=== PATIENT | female | born 1965 | race Caucasian/White ===

== ENCOUNTER 2019-04-03 10:41 | Emergency (ER) | payer MEDICARE ==
--- NOTE | 2019-04-03 10:56 | ED ---
Upper Extremity Pain - HPI Summary HPI Summary: This patient is a 53 year old F presenting to [facility] accompanied by daughter with a chief complaint of left shoulder pain since 1529. Patient states that she injured her left shoulder on 01/30/19 she states that she woke up and instantly felt pain in left shoulder. The patient rates the pain 10/10 in severity. Symptoms aggravated by movement. Symptoms alleviated by oxycodone ( originally prescribed for back pain). Patient reports left shoulder pain and neck pain. Patient states that she has been waiting for a call to go and get a MRI. Allergies Allergy/AdvReac Type Severity Reaction Status Date / Time Penicillins Allergy Intermediate Swelling Verified 01/30/18 10:51 - History of Current Complaint Chief Complaint: EDExtremityUpper Stated Complaint: SHUOLDER INJURY Time Seen by Provider: 04/03/19 10:48 Hx Obtained From: Patient, Family/Workforce Specialist - daughter Mechanism Of Injury: Unknown Onset/Duration: Started Weeks Ago, Still Present, Worse Since - 1509 Timing: Constant Severity Currently: Moderate Pain Location: Shoulder - right Character: Sharp Aggravating Factor(s): Movement Alleviating Factor(s): Nothing Associated Signs & Symptoms: Positive: Swelling - Allergies/Home Medications Allergies/Adverse Reactions: Allergies Allergy/AdvReac Type Severity Reaction Status Date / Time Penicillins Allergy Intermediate Swelling Verified 01/30/18 10:51 PMH/Surg Hx/FS Hx/Imm Hx Endocrine/Hematology History: Reports: Hx Diabetes Cardiovascular History: Reports: Hx Aneurysm - Abdominal, Hx Angina, Hx Deep Vein Thrombosis, Hx Hypercholesterolemia, Hx Hypertension, Other Cardiovascular Problems/Disorders - DIABETIC / Denies: Hx Myocardial Infarction, Hx Pacemaker/ICD Respiratory History: Denies: Hx Chronic Obstructive Pulmonary Disease (COPD) GI History: Reports: Hx Gastroesophageal Reflux Disease, Hx Hiatal Hernia, Other GI Disorders - GERD History: Reports: Other Problems/Disorders - Bladder Sling Denies: Hx Renal Disease Musculoskeletal History: Reports: Hx Fibromyalgia, Other Musculoskeletal History - mild spinal stenosis with bulging disks, degenerative disk disease Sensory History: Reports: Hx Contacts or Glasses, Hx Deafness - Rt ear, Hx Hearing Aid Opthamlomology History: Reports: Hx Contacts or Glasses Neurological History: Reports: Hx Migraine - Current Admission, Other Neuro Impairments/Disorders - Nerve damage right neck Psychiatric History: Denies: Hx Panic Disorder - Surgical History Surgical History: Yes Surgery Procedure, Year, and Place: cholecysectomy. hysterectomy. bladder sling. tonsilectomy and tubes in ears. 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 (-) Distressed Skin: Warm, Dry HENT: Normocephalic; Atraumatic Eyes: Conjunctiva normal Neck: Musculoskeletal ROM normal neck. (-) JVD, (-) Stridor, (-) Tracheal deviation Cardio: Rhythm regular, rate normal, Heart sounds normal; Intact distal pulses; The pedal pulses are 2+ and symmetric. Radial pulses are 2+ and symmetric. (-) Murmur Pulmonary/Chest wall: Effort normal. (-) Respiratory distress, (-) Wheezes, (-) Rales Abd: Soft, (-) tenderness, (-) Distension, (-) Guarding, (-) Rebound Musculoskeletal: left bicep non tender, (-) Edema, referred pain to left bicep causing minimal limitless for ROM, no erythema or induration. Lymph: (-) Cervical adenopathy Neuro: Alert, Oriented x3 Psych: Mood and affect Normal Triage Information Reviewed: Yes Vital Signs On Initial Exam: Initial Vitals Temp Pulse Resp BP Pulse Ox 97.6 F 76 18 162/73 98 04/03/19 10:42 04/03/19 10:42 04/03/19 10:42 04/03/19 10:42 04/03/19 10:42 Vital Signs Reviewed: Yes Diagnostics - Vital Signs Vital Signs Temp Pulse Resp BP Pulse Ox 04/03/19 10:42 97.6 F 76 18 162/73 98 - Laboratory Result Diagrams: 04/03/19 11:05 04/03/19 11:05 Lab Statement: Any lab studies that have been ordered have been reviewed, and results considered in the medical decision making process. - Ultrasound Venous Doppler Study Ultrasound Interpretation Completed By: Radiologist Summary of Ultrasound Findings: Venous Doppler Study reveals, per radiologist, IMPRESSION: No evidence for LEFT upper extremity deep venous thrombosis. ED Physician has reviewed this report. Course/Dx - Course Course Of Treatment: This patient is a 53 year old F presenting to [facility] accompanied by daughter with a chief complaint of left shoulder pain since 0. Venous Doppler Study reveals, per radiologist, IMPRESSION: No evidence for LEFT upper extremity deep venous thrombosis. ED Physician has reviewed this report. Test results with no significant abnormalities except for Plt Count 125 , INR 1.12, Glucose 151, AST 46. In the ED course the patient was given Hydrocodone [address] Dias states that he does not suspect a fracture and there are no signs of neurovascular compromises of the left upper extremity. Patient will be discharged and follow up with her PCP and our referral for an Orthopedic doctor. The patient is agreeable with this plan. - Diagnoses Provider Diagnoses: Left shoulder pain, Subtherapeutic international normalized ratio (INR) Discharge ED - Sign-Out/Discharge Documenting (check all that apply): Patient Departure - discharge Patient Received Moderate/Deep Sedation with Procedure: No - Discharge Plan Condition: Stable Disposition: HOME Prescriptions: Lidocaine PATCH 5%* [Lidoderm 5% Patch*] 1 patch TRANSDERM DAILY #14 patch Patient Education Materials: Shoulder Pain (ED) Referrals: Joby Sanchez MD [Primary Care Provider] - 2 Days Adrianna Mayes [Physician [employer]illing Machine Hand] - Additional Instructions: PLEASE CONTACT PRIMARY CARE PROVIDER FOR POTENTIAL ADJUSTMENT OF COUMADIN. PLEASE ALSO SCHEDULE AN APPOINTMENT WITH AN ORTHOPEDIC DOCTOR (REFERRAL ATTACHED ) WITH IN TWO TO THREE DAYS. PLEASE RETURN TO THE EMERGENCY DEPARTMENT FOR CHANGING OR WORSENING SYMPTOMS. - Attestation Statements Document Initiated by Scribe: Yes Documenting Scribe: Sunshine Stone Provider For Whom Nathanaelibe is Documenting (Include Credential): Dr. Be Dias MD Scribe Attestation: Sunshine Bentley scribed for Dr. Be Dias MD on 04/03/19 at 1232. Status of Scribe Document: Ready
[2019-04-03] MEDS ORDERED: HYDROcodone/ACETAMIN 5-325 MG* 1 TAB PO ONE (10:57)
[2019-04-03 11:12] LABS: Hematocrit 41 % (35-47); Hemoglobin 13.7 g/dL (12.0-16.0); Mean Corpuscular HGB Conc 34 g/dL (31-36); Mean Corpuscular Hemoglobin 31 pg (27-31); Mean Corpuscular Volume 93 fL (80-97); Mean Platelet Volume 9.5 fL (7.4-10.4); Platelet Count 125 10^3/uL (150-450); Red Blood Count 4.38 10^6 /uL (3.70-4.87); Red Cell Distribution Width 14 % (10-15); White Blood Count 6.2 10^3/uL (3.5-10.8)
[2019-04-03 11:28] LABS: Activated Partial Thrombo Time 32.4 seconds (26.0-38.0); INR 1.12 (0.82-1.09)
[2019-04-03 11:37] LABS: Albumin/Globulin Ratio 1.3 (1-3); BUN/Creatinine Ratio 16.7 (8-20); C Reactive Protein 4.42 mg/L (<8.01); Calcium 9.3 mg/dL (8.6-10.3); EGFR African American 112.5 (>60); Potassium 4.2 mmol/L (3.5-5.0); Total Bilirubin 0.7 mg/dL (0.2-1.0)
[2019-04-03 12:52] VITALS: BP 127/75
== END 2019-04-03 12:35 | disposition home or self-care (01) ==
LOC: ED 10:41
DX: M25.512 Pain in left shoulder (principal); R79.1 Abnormal coagulation profile; E11.9 Type 2 diabetes mellitus without complications; E78.00 Pure hypercholesterolemia, unspecified; I10 Essential (primary) hypertension; K21.9 Gastro-esophageal reflux disease without esophagitis; F17.210 Nicotine dependence, cigarettes, uncomplicated; Z86.718 Personal history of other venous thrombosis and embolism; Z90.710 Acquired absence of both cervix and uterus; Z90.49 Acquired absence of other specified parts of digestive tract; Z88.0 Allergy status to penicillin; Z79.84 Long term (current) use of oral hypoglycemic drugs; Z79.01 Long term (current) use of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s; Z79.899 Other long term (current) drug therapy
CPT/HCPCS: 36415; 80053; 85027; 85610; 85730; 86140; 99283

== ENCOUNTER 2019-07-30 08:11 | Emergency (ER) | payer MEDICARE ==
--- OUTSIDE RECORDS SUMMARY | 2019-07-30 08:22 | XMS REPORT ---
:1965 Author Organization [facility] Address [address] [place] [address] Care Team Providers Name Role Phone Austin Radford Unavailable Unavailable PROBLEMS Type Condition ICD9-CM [id number] Onset Condition SNOMED Code Code Code Dates Status Problem Cubital tunnel syndrome, G56.22 Active 20240259 left Problem Bilateral carpal tunnel G56.03 Active 61440598 syndrome Problem Type 2 diabetes mellitus E11.9 Active 190118508 without complications Problem Diaphragmatic hernia K44.9 Active 96519926 without obstruction or gangrene Problem GERD (gastroesophageal K21.9 Active 983768622 reflux disease) Problem Pulmonary nodule R91.1 Active 914316952 Problem Essential hypertension I10 Active 35052941 Problem Peripheral vascular I73.9 Active 073384201 disease Problem Pure E78.0 Active 662235890 hypercholesterolemia Problem Fatty liver K76.0 Active 451009846 Problem Elevated transaminase R74.0 Active 683195526 level Problem Stage 1 chronic kidney N18.1 Active 345234403 disease Problem Anxiety F41.9 Active 89761722 Problem Primary insomnia F51.01 Active 9864456 Problem Tension headache G44.209 Active 598473293 Problem Status post Z95.828 Active 868027795 aortobifemoral bypass surgery Problem Other obesity due to E66.09 Active 480307679 excess calories Problem Body mass index (BMI) of Z68.37 Active 444636139 37.0-37.9 in adult Problem Bilateral low back pain M54.40 Active 21636150 with sciatica, sciatica laterality unspecified Problem assisted current use of Z79.4 Active 960805554 insulin ALLERGIES No Information ENCOUNTERS Encounter Location Date Diagnosis [address] Aug, [place] [address] Jul, [place] [address] Jul, [place] [address] Jul, Local infection of the [place] [address] subcutaneous tissue, unspecified L08.9 and Bitten by dog, initial encounter W54.0XXA [address] Jul, Type 2 diabetes [place] [address] without complications E11.[address] Jul, Plantar tendonitis M77.9 [place] [address] Type 2 diabetes mellitus without complications E11.[address] Jul, [place] [address] Jul, [place] [address] Jun, [place] [address] Jun, Encounter for screening [place] [address] and ear disorders Z13.[address] Jun, [place] [address] Jun, Type 2 [place] [address] without complications E11.9 ; Encounter for immunization Z23 and assisted current use of insulin Z79.[address] Jun, Type 2 diabetes mellitus [place] without complications E11.9 [address] May, [place] [address] [facility] [address] [place] [address] May, [place] [address] Mar, [place] [address] [facility] Mar, [place] [address] [facility] [address] [facility] [place] 18 Mar, 2019 [place] [address] Mar, [place] [address] [place] [address] [address] [place] Mar, Type 2 diabetes [place] [address] without complications E11.[address] Mar, Fatty liver K76.0 ; [place] [address] anterior shoulder pain M25.512 and Type 2 diabetes mellitus without complications E11.9 [facility] [address] [facility] Feb, Pain in left shoulder M25.512 [place] [address] [facility] Feb, [place] [address] Feb, Type 2 diabetes [place] [address] without complication, without long-term current use of insulin E11.[address] Feb, Acute pain of left [place] [address] M25.512 and Type 2 diabetes mellitus without complication, without long-term current use of insulin E11.[address] Feb, Elevated liver enzymes R74.8 [place] [address] [facility] [address] [facility] Jan, [place] [address] [facility] [address] [facility] Jan, [place] [address] Jan, [place] [address] Jan, [place] [address] [facility] [address] [facility] Jan, [place] [address] [place] [address] [address] [place] Dec, Type 2 diabetes [place] [address] without complication, without long-term current use of insulin E11.9 ; Screening for breast cancer Z12.31 and Primary insomnia F51.01 [place] [address] [address] [place] Dec, [place] [address] [place] [address] Dec, [place] [address] [place] [address] [address] [place] Dec, [place] [address] [place] [address] [address] [place] November, [place] [address] [place] [address] [address] [place] November, [place] [address] November, [place] [address] Migel Nguyen [address] November, [place] [address] November, Type 2 [place] [address] without complication, without long-term current use of insulin E11.[address] Oct, Type 2 [place] [address] without complication, without long-term current use of insulin E11.[address] Oct, Type 2 [place] [address] without complication, without long-term current use of insulin E11.9 ; Transaminitis R74.0 ; assisted current use of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 Z79.01 and Chest pain at rest R07.[address] Sep, Type 2 diabetes mellitus [place] without complications E11.9 [address] Aug, [place] [address] Aug, [place] [address] [place] [address] Aug, Type 2 diabetes mellitus [place] without complications E11.9 [address] Jul, Type 2 diabetes mellitus [place] without complications E11.9 [address] Jul, Bladder pain R39.89 ; Type 2 [place] [address] diabetes mellitus without complications E11.9 and 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.[address] Jul, Uncontrolled type 2 [place] [address] mellitus without complication, without long-term current use of insulin E11.[address] Jul, Type 2 [place] [address] without complication, without long-term current use of insulin E11.[address] Jul, [place] [address] Jul, [place] [address] Jul, Status post aortobifemoral [place] [address] bypass surgery Z95.828 [facility] [address] Jul, [place] [address] [place] [address] [address] [place] Jun, [place] [address] [facility] [address] [facility] Jun, [place] [address] [facility] [address] [place] [address] Jun, [place] [address] [place] [address] Jun, [place] [address] [place] [address] [address] [place] Jun, [place] [address] [facility] [address] [facility] Jun, [place] [address] [place] [address] Jun, [place] [address] [place] [address] [address] [place] May, [place] [address] [place] [address] [address] [place] May, assisted current [place] [address]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 Z79.[address] [place] [address] May, Bronchitis J40 ; Sub[place] [address] maxillary sinusitis J01.00 ; Clotting disorder D68.9 and Type 2 diabetes mellitus without complication, without long-term current use of insulin E11.[address] May, [place] [address] Apr, [place] [address] [place] [address] [address] [place] Apr, [place] [address] [place] [address] [address] [place] Apr, Clotting disorder D68.9 [place] [address] [place] [address] Apr, [place] [address] [place] [address] Apr, [place] [address] [place] [address] Apr, Type 2 diabetes [place] [address] without complication, without long-term current use of insulin E11.9 [place] [address] [address] [place] Apr, [place] [address] [place] [address] [address] [place] Apr, [place] [address] 16 Apr, 2018 [place] [address] 15 Apr, 2018 Type 2 [place] [address] without complication, without long-term current use of insulin E11.[address] 14 Apr, 2018 [place] [address] Apr, [place] [address] Apr, [place] [address] Apr, [place] [address] Apr, [place] [address] Apr, Bilateral [place] [address] sciatica, sciatica laterality unspecified M54.40 ; Type 2 diabetes mellitus without complication, without long-term current use of insulin E11.9 ; Essential hypertension I10 ; Vision changes H53.9 ; Rash R21 ; Other obesity due to excess calories E66.09 ; Body mass index (BMI) of 37.0-37.9 in adult Z68.37 and Encounter for immunization Z23 [facility] [address] [facility] [place] Apr, [place] [address] Mar, [place] [address] Mar, [place] [address] Mar, [place] [address] Mar, assisted current use of [facility] [place]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 Z79.01 [address] Mar, [place] [address] Mar, Peripheral [place] [address] I73.9 ; Left foot pain M79.672 ; Bilateral low back pain with sciatica, sciatica laterality unspecified M54.40 ; Other obesity due to excess calories E66.09 ; Body mass index (BMI) of 37.0-37.9 in adult Z68.37 ; 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 and Elevated liver enzymes R74.8 [place] [address] Mar, [place] [address] Mar, [place] [address] Mar, Peripheral vascular disease [place] I73.9 ; Left foot pain M79.672 [address] ; Swelling of left foot M79.89 and Type 2 diabetes mellitus without complication, without long-term current use of insulin E11.[address] Mar, [place] [address] Feb, [place] [address] Feb, [place] [address] Feb, Type 2 [place] [address] without complication, without long-term current use of insulin E11.[address] Feb, [place] [address] Feb, [place] [address] Feb, [place] [address] Feb, Pain in right knee M25.561 [place] [address] Feb, [place] [address] Feb, [place] [address] Feb, [place] [address] Jan, [place] [address] Jan, [place] [address] [place] [address] [address] [place] Jan, Type 2 [place] [address] without complication, without long-term current use of insulin E11.9 ; Acute pain of right knee M25.561 ; Bilateral low back pain with sciatica, sciatica laterality unspecified M54.40 ; Generalized abdominal tenderness R10.817 ; Other obesity due to excess calories E66.09 and Body mass index (BMI) of 37.0-37.9 in adult Z68.[address] Jan, [place] [address] [facility] [address] [place] [address] Jan, [place] [address] Jan, Rib pain on left side R07.81 [place] [address] [place] [address] [address] [place] Jan, [place] [address] Dec, [place] [address] Dec, [place] [address] [facility] [address] [facility] Dec, [place] [address] Dec, [place] [address] [facility] [address] [place] [address] Dec[place] [address] [facility] [address] [facility] Dec, [place] [address] Dec, [place] [address] [place] [address] November, [place] [address] [place] [address] [address] [place] November, [place] [address] November, Type 2 diabetes mellitus [place] [address] without complication, without long-term current use of insulin E11.9 ; Left hip pain M25.552 and Anxiety F41.[address] November, [place] [address] November, [place] [address] [place] [address] [address] [place] November, [place] [address] November, [place] [address] [address] November, [place] [address] November, [place] [address] November, Type 2 diabetes [place] [address] without complication, without long-term current use of insulin E11.9 [place] [address] November, [place] [address] [place] [address] November, [place] [address] Migel Nguyen [address] November, [place] [address] [place] [address] November, [place] [address] [place] [address] November, [place] [address] [place] [address] Oct, [place] [address] [place] [address] Oct, Vaginal yeast infection B37.3 ; [place] [address] Stomach pain R10.9 ; Other obesity due to excess calories E66.09 and Body mass index (BMI) of 37.0-37.9 in adult Z68.37 [place] [address] Oct, [place] [address] [place] [address] Oct, [place] [address] [place] [address] Oct, [place] [address] [place] [address] Oct, [place] [address] [place] [address] Sep, [place] [address] [place] [address] Sep, [place] [address] [place] [address] Sep, Right upper quadrant [place] [address] R10.11 [place] [address] Sep, [place] [address] [place] [address] Sep, [place] [address] [place] [address] Sep, [place] [address] [place] [address] Sep, Tenderness at McBurney[place] [address] R19.8 and Right upper quadrant pain R10.11 [place] [address] Sep, [place] [address] [place] [address] Sep, [place] [address] [place] [address] Sep, Type 2 diabetes [place] [address] without complication, without long-term current use of insulin E11.9 ; Clotting disorder D68.9 ; 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 ; Essential hypertension I10 ; Anxiety F41.9 ; Generalized abdominal pain R10.84 ; Paresthesia of skin R20.2 ; Anesthesia of skin R20.0 ; Obesity (BMI 30-39.9) E66.9 and BMI 36.0-36.9,adult Z68.36 [place] [address] [address] [place] Sep, [place] [address] [place] [address] Sep, [place] [address] [place] [address] [address] [place] [address] Sep, [place] [address] [place] [address] [place] Sep, [place] [address] [place] [address] [place] Aug, [place] [address] [place] [address] [address] [place] Aug, Type 2 diabetes [place] [address] without complication, without long-term current use of insulin E11.9 [place] [address] [address] [place] Aug, [place] [address] [place] [address] [address] [place] Aug, Anesthesia of skin R20.0 ; [place] [address] Elevated transaminase level R74.0 ; Lump in throat R22.1 and Type 2 diabetes mellitus without complication, without long-term current use of insulin E11.9 [place] [address] [address] [place] Aug, [place] [address] [place] [address] [address] [place] Aug, [place] [address] [place] [address] [address] [place] Aug, Raynaud''s phenomenon [place] [address] gangrene I73.[address] Aug, [place] [address] Aug, Raynaud''s phenomenon [place] [address] gangrene I73.00 [place] [address] [address] [place] Aug, [place] [address] [place] [address] [address] [place] Jul, [place] [address] [facility] [address] Jul, [place] [address] [place] [address] Jul, Raynaud''s phenomenon [place] [address] gangrene I73.00 and Lymphadenopathy R59.1 [facility] [address] [place] Jul, Health [place] [address] [facility] [address] [facility] Jul, [place] [address] [facility] [address] [place] Jul, Raynaud''s phenomenon [place] [address] gangrene I73.00 [place] [address] [address] [place] Jul, [place] [address] [place] [address] [address] [place] Jul, Uncontrolled type 2 [place] [address] mellitus without complication, without long-term current use of insulin E11.[address] Jul, [place] [address] Jun, [place] [address] Jun, [place] [address] Jun, [place] [address] [place] [address] [address] [place] Jun, [place] [address] [place] [address] [address] [place] Jun, [place] [address] Jun, Epigastric pain R10.13 ; Type 2 [place] [address] diabetes mellitus without complication, without long-term current use of insulin E11.9 ; Clotting disorder D68.9 ; Obesity (BMI 30-39.9) E66.9 ; BMI 35.0-35.9,adult Z68.35 and Colon cancer screening Z12.[address] Jun, [place] [address] Jun, [place] [address] Jun, [place] [address] Jun, [place] [address] May, Pure hypercholesterolemia E78.0 [place] [address] May, Rib pain on left side R07.81 ; [place] [address] Pneumonia of both lungs due to infectious organism, unspecified part of lung J18.9 ; Clotting disorder D68.9 ; 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 ; Obesity (BMI 30-39.9) E66.9 and BMI 35.0-35.9,adult Z68.[address] May, Uncontrolled type 2 [place] [address] mellitus without complication, without long-term current use of insulin E11.[address] May, [place] [address] May, Pneumonia of both lungs [place] [address] infectious organism, unspecified part of lung J18.[address] May, Pneumonia of both lungs [place] [address] infectious organism, unspecified part of lung J18.[address] May, Uncontrolled type 2 [place] [address] mellitus without complication, without long-term current use of insulin E11.[address] May, [place] [address] May, [place] [address] May, Fatty liver K76.0 ; [place] [address] LFTs R79.89 ; Clotting disorder D68.9 ; Cigarette nicotine dependence without complication F17.210 ; Obesity (BMI 30-39.9) E66.9 and BMI 35.0-35.9,adult Z68.[address] May, Uncontrolled [place] [address] mellitus without complication, without long-term current use of insulin E11.[address] May, [place] [address] Apr, [place] [address] Apr, Left upper quadrant pain R10.12 [place] [address] ; Transaminase or LDH elevation R74.0 ; Wheezing R06.2 and Cigarette nicotine dependence with nicotine-induced disorder F17.[address] Apr, Type 2 diabetes [place] [address] without complication, without long-term current use of insulin E11.[address] Apr, [place] [address] Apr, Uncontrolled type 2 [place] [address] mellitus without complication, without long-term current use of insulin E11.[address] Apr, [place] [address] Apr, Right lower quadrant [place] [address] R10.[address] Apr, Right lower quadrant [place] [address] R10.31 ; Urinary frequency R35.0 and Essential hypertension I10 [address] Apr, [place] [address] Apr, [place] [address] Apr, [place] [address] Apr, [place] [address] Mar, [place] [address] Mar, [place] [address] Mar, [place] [address] Mar, [place] [address] Mar, Uncontrolled type 2 [place] [address] mellitus without complication, without long-term current use of insulin E11.65 and Screening for breast cancer Z12.[address] 18 Mar, 2017 [place] [address] 14 Mar, 2017 [place] [address] Mar, Health [place] [address] [place] [address] Mar, [place] [address] [place] [facility] [address] [place] 09 Mar, 2017 Health [facility] [place] [address] [facility] [address] [place] Mar, Impaired fasting glucose R73.01 [place] [address] and Uncontrolled type 2 diabetes mellitus without complication, without long-term current use of insulin E11.65 [place] [address] Mar, [place] [address] [place] [address] Mar, Health [place] [place] [address] [place] [address] [place] Mar, [place] [address] [place] [address] Mar, [place] [address] [place] [address] [place] Feb, [place] [address] [place] [address] [place] Feb, [place] [address] [place] [address] [place] Feb, [place] [address] [place] [address] [place] Feb, Bruising T14.8 and [place] [address] hypercholesterolemia E78.0 [facility] [address] [facility] Feb, [place] [address] [place] [address] [place] Feb, [place] [address] [place] [address] [place] Feb, Health [place] [address] [place] [address] [address] [facility] Feb, Cigarette nicotine dependence Health [place] [address] with nicotine-induced disorder F17.219 [facility] [address] [place] [address] Feb, [place] [address] [place] [address] Feb, [place] [address] [place] [address] [place] Feb, Cigarette nicotine dependence Health [place] [address] with nicotine-induced disorder F17.219 [place] [address] [place] Jan, Health [place] [address] [place] [address] Jan, [place] [address] [place] [address] Jan, Tension headache G44.209 ; [place] [address] Bilateral low back pain with sciatica, sciatica laterality unspecified M54.40 ; Cigarette nicotine dependence with nicotine-induced disorder F17.219 ; Sprain of ribs, initial encounter S23.41XA ; Pure hypercholesterolemia E78.0 and Essential hypertension I10 [place] [address] [facility] 14 Jan, 2017 [place] [address] [place] [address] Jan, [place] [address] [place] [address] Jan, [place] [address] [place] [address] Jan, [place] [address] [facility] [address] Dec, [place] [address] [place] [address] Dec, [place] [address] [place] [address] Dec, [place] [address] [place] [address] Dec, [place] [address] [place] [address] Dec, [place] [address] [place] [address] Dec, Tension headache G44.209 ; [place] [address] Clotting disorder D68.9 ; 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 ; Cigarette nicotine dependence with nicotine-induced disorder F17.219 and Obesity (BMI 30-39.9) E66.[address] [place] [address] Dec, [place] [address] [place] [address] Dec, [place] [address] [place] [address] Dec, Bilateral low back [place] [address] sciatica, sciatica laterality unspecified M54.40 and Clotting disorder D68.[address] [place] [address] Dec, [place] [address] [place] [address] Dec, Clotting disorder D68.9 ; [place] [address] term current use of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 Z79.01 and Cigarette nicotine dependence with nicotine-induced disorder F17.219 [place] [address] Dec, [place] [address] [place] [address] Dec, [place] [address] [facility] [address] [place] Dec, [place] [address] [place] [facility] [address] November, [place] [address] [place] [address] November, [place] [address] [place] [address] November, [place] [address] [place] [address] November[place] [address] [place] [address] November, [place] [address] [place] [address] November, [place] [address] [place] [address] November, [place] [address] [place] [address] November[place] [address] [place] [address] November[place] [address] [place] [address] November, [place] [address] [place] [address] November[place] [address] [place] [address] November, [place] [address] [place] [address] Oct[place] [address] [place] [address] Oct, [place] [address] [place] [address] Oct, [place] [address] [place] [address] Oct, [place] [address] [place] [address] Oct, [place] [address] [place] [address] Oct, Other chest pain R07.89 ; Pain, [place] [address] arm, left M79.602 ; Posterior left knee pain M25.562 ; Essential hypertension I10 and Hypercholesteremia E78.00 [place] [address] Oct, [place] [address] [place] [address] Oct, Weakness of left arm R29.898 ; [place] [address] History of coagulopathy Z86.2 and Pain, arm, left M79.602 [place] [address] Oct, [place] [address] [place] [address] Oct, [place] [address] [place] [address] Sep, [place] [address] [place] [address] Sep, [place] [address] [place] [address] Sep[place] [address] [place] [address] Sep[place] [address] [place] [address] Sep, [place] [address] [place] [address] Sep[place] [address] [place] [address] Sep, [place] [address] [place] [address] Sep, [place] [address] [place] [address] Aug, [place] [address] [place] [address] Aug[place] [address] [place] [address] Aug, assisted current use [place] [address]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 Z79.01 ; Cigarette nicotine dependence with nicotine-induced disorder F17.219 and Anxiety F41.9 [facility] [address] [facility] Aug, [place] [address] [place] [address] Aug, [place] [address] [place] [address] Aug[place] [address] [place] [address] Aug, [place] [address] [place] [address] Aug, [place] [address] [place] [address] Aug[place] [address] [place] [address] Aug, [place] [address] [place] [address] Jul, 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 [place] [address]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 Z79.01 [place] [address] Jul, Tobacco abuse Z72.0 [place] [address] [place] [address] Jul, [place] [address] [place] [address] Jul, [place] [address] [place] [address] Jul, Abnormal [place] [address] R91.8 [facility] [address] Jul, Pulmonary nodules R91.8 [place] [address] [place] [address] Jul, [place] [address] [place] [address] [place] Jul, Tension headache G44.209 ; [place] [address] Bilateral low back pain with sciatica, sciatica laterality unspecified M54.40 ; Cigarette nicotine dependence with nicotine-induced disorder F17.219 ; Wheezing R06.2 and 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 [place] [address] [place] Jul, [place] [address] [facility] [address] [facility] Jul, [place] [address] [facility] [address] [facility] Jun, [place] [address] [place] [address] Jun, [place] [address] [place] [address] Jun, Chronic headache R51 [place] [address] [place] [address] Jun, [place] [address] [place] [address] Jun, [place] [address] [place] [address] Jun, [place] [address] [place] [address] [place] Jun, [place] [address] [place] [address] [place] Jun, [place] [address] [place] [address] [place] Jun, Tension headache G44.209 [place] [address] [place] [address] May, [place] [address] [place] [address] [place] May, Clotting disorder D68.9 [place] [address] [place] [address] May, Tension headache G44.209 [place] [address] [place] [address] May, [place] [address] [place] [address] May, Encounter for immunization Z23 [place] [address] ; Tension headache G44.209 ; Clotting disorder D68.9 ; Essential hypertension I10 ; Cigarette nicotine dependence with nicotine-induced disorder F17.219 ; Pure hypercholesterolemia E78.0 and Hemorrhage from respiratory passages, unspecified R04.9 [place] [address] May, [place] [address] [place] [address] May, Tension headache G44.209 [place] [address] [place] [address] May, [place] [address] [place] [address] May, [place] [address] [place] [address] May, [place] [address] [place] [address] May, [place] [address] [place] [address] May, [place] [address] [facility] [address] May, [place] [address] [place] [address] [place] May, [place] [address] [place] [address] [place] Apr, Clotting disorder D68.9 [place] [address] [facility] [address] [place] [address] Apr[place] [address] [facility] [address] Apr, [place] [address] [place] [address] Apr, [place] [address] [place] [address] Apr, [place] [address] [place] [address] [place] Apr, [place] [address] [place] [address] Apr, [place] [address] [place] [address] [place] Apr, Clotting disorder D68.9 [place] [address] assisted current use of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 Z79.01 [place] [address] Mar, [place] [address] [place] [address] Mar, [place] [address] [place] [address] Mar, Hypomagnesemia E83.42 [place] [address] Abdominal hernia K46.9 [place] [address] Mar, [place] [address] [place] [address] Mar, [place] [address] [place] [address] Mar, [place] [address] [place] [address] Feb, [place] [address] [place] [address] [place] Feb, [place] [address] [place] [address] [place] Feb, assisted current use [place] [address]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 Z79.01 [place] [address] [place] Feb, Contusion of lower leg, [place] [address] unspecified laterality, initial encounter S80.10XA and assisted current use of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 Z79.[address] Feb, [place] [address] Feb, [place] [address] [place] [address] [place] Feb, [place] [address] [place] [address] [place] Feb, [place] [address] [place] [address] [place] Jan, [place] [address] Jan, [place] [address] [place] [address] [place] Dec, [place] [address] [place] [address] [place] Dec, [place] [address] [place] [address] [place] Dec, Cigarette [place] [address] with nicotine-induced disorder F17.219 ; Seasonal allergies J30.2 ; Pain in right knee M25.561 and Pain in left knee M25.562 [place] [address] [place] Dec, [place] [address] [place] [address] Dec, [place] [address] Dec, [place] [address] [place] [address] November, [place] [address] November, [place] [address] November, [place] [address] [place] [address] Oct, [place] [address] [place] [address] Oct, [place] [address] Sep, [place] [address] Sep, [place] [address] Sep, [place] [address] Aug, 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 ; Cigarette nicotine dependence with nicotine-induced disorder F17.219 ; Generalized abdominal tenderness R10.817 and Essential hypertension I10 [address] Aug, assisted [place] [address]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 Z79.01 ; Bilateral low back pain with sciatica, sciatica laterality unspecified M54.40 and Cigarette nicotine dependence with nicotine-induced disorder F17.[address] Aug, [place] [address] Aug, Essential hypertension I10 ; [place] [address] Acute nasopharyngitis J00 and Cigarette nicotine dependence with nicotine-induced disorder F17.[address] Aug, [place] [address] [address] Aug, Bilateral [place] [address] sciatica, sciatica laterality unspecified M54.40 ; Cigarette nicotine dependence with nicotine-induced disorder F17.219 ; Pain in right leg M79.604 ; Pain of left leg M79.605 ; Clotting disorder D68.9 and Anxiety F41.[address] Jul, [place] [address] Jul, [place] [address] Jul, [place] [address] Jul, Pure hypercholesterolemia E78.0 [place] [address] Jul, Pain in right leg M79.604 ; [place] [address] Pain of left leg M79.605 ; Cigarette nicotine dependence with nicotine-induced disorder F17.219 ; Chronic fatigue R53.82 and Pure hypercholesterolemia E78.0 IMMUNIZATIONS No Known Immunizations SOCIAL HISTORY Never Assessed REASON FOR REFERRAL FUNCTIONAL STATUS PLAN OF CARE VITAL SIGNS MEDICATIONS Medication Instructions Dosage Frequency Start Date End Date Duration Status Basaglar Subcutaneous qhs 55 units 11 Jan, Active KwikPen 100 2019 UNIT/ML PROCEDURES No Known procedures RESULTS No Results REASON FOR VISIT glucose f/u after 07/24/19* Insurance Providers [facility] Member Patient Patient Patient Patient Patient Subscriber Subscriber Subscriber Group Insurance Plan Plan Plan Plan ID Relationship Address Phone Name Date of ID Name Date of No Type Insurance Insurance Insurance Coverage to Subscriber Address Phone Name Dates Medicare National [id number] Medicare self Marii [id number] PPS QMB No Government 41 PPS QMB No [place] [facility] [employer] [facility] [address] [place] [id number] [place] [phone] [place] self [place] [id number] DOI Insurance [id number] Insurance [place] 9 [id number] [facility] 0 [address] [employer] [address] Well[employer] self Marii [id number] [facility] [id number] [facility] Of [facility] [place] Mc[place] [facility] Adv Medical [address] Medical Case [phone] Case self Marii [id number] Management [place] 02 Management [facility] [address] Community Medicaid [phone] Medicaid self Marii [id number] [facility] 00 [place] [address] Medicare [place] 837- Medicare self Marii [id number] PPS Government 41 PPS [place] Services [address] [place] [id number] MEDICAL (GENERAL) HISTORY Type Description Date Medical History chronic back pain- bulging discs- Dr Miranda- disabled Medical History clotting disorder- will review records Medical History hyperlipidemia Medical History stress echo 2014 Medical History Raynaud's disease Medical History DMII Medical History History of chronic back pain Medical History Cigarette nicotine dependence with nicotine-induced disorder (quit 2017) Medical History Bilateral low back pain with sciatica, sciatica laterality unspecified Medical History assisted current use of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 Medical History Hx of deep venous thrombosis Medical History assisted current use of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 Medical History Abdominal aorta thrombosis Surgical History Aortic Abdominal Bypass 2012 Surgical History Hysterectomy; ovaries and cervix removed as well 2001 Surgical History galbladder 2003 Surgical History sinus surgery Surgical History ear surgery with tubes Surgical History Bladder sling 2010 Surgical History both ears surgery with tubes 2019 Hospitalization History same as above
--- OUTSIDE RECORDS SUMMARY | 2019-07-30 08:22 | XMS REPORT ---
:1965 Author Organization [facility] Address [address] [place] [address] Care Team Providers Name Role Phone Austin Radford Unavailable Unavailable PROBLEMS Type Condition ICD9-CM [id number] Onset Condition SNOMED Code Code Code Dates Status Problem Cubital tunnel syndrome, G56.22 Active 16647200 left Problem Bilateral carpal tunnel G56.03 Active 93204094 syndrome Problem Type 2 diabetes mellitus E11.9 Active 799991329 without complications Problem Diaphragmatic hernia K44.9 Active 20425029 without obstruction or gangrene Problem GERD (gastroesophageal K21.9 Active 454370830 reflux disease) Problem Pulmonary nodule R91.1 Active 545174833 Problem Essential hypertension I10 Active 24244618 Problem Peripheral vascular I73.9 Active 189544836 disease Problem Pure E78.0 Active 214809454 hypercholesterolemia Problem Fatty liver K76.0 Active 581401573 Problem Elevated transaminase R74.0 Active 118265640 level Problem Stage 1 chronic kidney N18.1 Active 158278827 disease Problem Anxiety F41.9 Active 83304146 Problem Primary insomnia F51.01 Active 5219458 Problem Tension headache G44.209 Active 335560431 Problem Status post Z95.828 Active 691635340 aortobifemoral bypass surgery Problem Other obesity due to E66.09 Active 505105429 excess calories Problem Body mass index (BMI) of Z68.37 Active 472994554 37.0-37.9 in adult Problem Bilateral low back pain M54.40 Active 26145682 with sciatica, sciatica laterality unspecified Problem alf current use of Z79.4 Active 171100807 insulin ALLERGIES No Information ENCOUNTERS Encounter Location Date Diagnosis [address] Aug, [place] [address] Jul, [place] [address] Jul, [place] [address] Jul, [place] [address] Jul, Local infection [place] [address] subcutaneous tissue, unspecified L08.9 and Bitten by dog, initial encounter W54.0XXA [address] Jul, Type 2 [place] [address] without complications E11.[address] Jul, Plantar tendonitis M77.9 [place] [address] Type 2 diabetes mellitus without complications E11.[address] [place] Jul, [place] [address] Jul, [place] [address] Jun, [place] [address] Jun, Encounter for [place] [address] and ear disorders Z13.[address] Jun, [place] [address] Jun, Type 2 [place] [address] without complications E11.9 ; Encounter for immunization Z23 and alf current use of insulin Z79.[address] Jun, Type 2 diabetes mellitus [place] without complications E11.9 [address] May, [place] [address] May, [place] [address] Mar, [place] [address] Mar, [place] [address] [facility] 60 [facility] Mar, [facility] [place] [address] [place] [address] Mar, [place] [address] [place] [address] Mar, Type 2 [place] [address] without complications E11.[address] Mar, Fatty liver K76.0 ; [place] [address] anterior shoulder pain M25.512 and Type 2 diabetes mellitus without complications E11.9 [facility] [address] [facility] Feb, Pain in left shoulder M25.512 [place] [address] [facility] [address] [facility] Feb, [place] [address] Feb, Type 2 [place] [address] without complication, without long-term current use of insulin E11.[address] Feb, Acute pain [place] [address] M25.512 and Type 2 diabetes mellitus without complication, without long-term current use of insulin E11.9 [place] [address] Feb, Elevated liver enzymes R74.8 [place] [address] [facility] [address] [place] [address] Jan, [place] [address] Jan, [place] [address] Jan, [place] [address] [place] [address] Jan, [place] [address] Jan, [place] [address] [place] [address] Dec, Type 2 [place] [address] without complication, without long-term current use of insulin E11.9 ; Screening for breast cancer Z12.31 and Primary insomnia F51.01 [place] [address] Dec, [place] [address] [place] [address] Dec[place] [address] [place] [address] Dec[place] [address] [place] [address] November, [place] [address] November, [place] [address] November, [place] [address] Migel Nguyen [address] November, Health [facility] [place] [address] November, Type 2 [place] [address] without complication, without long-term current use of insulin E11.[address] Oct, Type 2 [place] [address] without complication, without long-term current use of insulin E11.[address] Oct, Type 2 [place] [address] without complication, without long-term current use of insulin E11.9 ; Transaminitis R74.0 ; alf current use of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 Z79.01 and Chest pain at rest R07.[address] Sep, Type 2 diabetes mellitus [place] without complications E11.9 [address] Aug, [place] [address] Aug, [place] [address] [place] [address] Aug, Type 2 diabetes mellitus [place] without complications E11.9 [address] Jul, Type 2 diabetes mellitus [place] without complications E11.9 [address] Jul, Bladder pain R39.89 ; Type 2 [place] [address] diabetes mellitus without complications E11.9 and alf current use of insulin Z79.[address] Jul, Uncontrolled type 2 [place] [address] mellitus without complication, without long-term current use of insulin E11.[address] Jul, Type 2 [place] [address] without complication, without long-term current use of insulin E11.[address] Jul, [place] [address] Jul, [place] [address] Jul, Status post [place]ob[place] [address] bypass surgery Z95.828 [place] [address] Jul, [place] [address] [place] [address] Jun, [place] [address] [facility] [address] [facility] Jun, [place] [address] Jun, [place] [address] [place] [address] Jun, [place] [address] [place] [address] Jun[place] [address] [facility] [address] Jun, [place] [address] [place] [address] Jun, [place] [address] May, [place] [address] May, alf [place] [address]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 Z79.01 [place] [address] May, Bronchitis J40 ; [place] [address] maxillary sinusitis J01.00 ; Clotting disorder D68.9 and Type 2 diabetes mellitus without complication, without long-term current use of insulin E11.[address] May, [place] [address] Apr, [place] [address] [place] [address] Apr, [place] [address] [place] [address] Apr, Clotting disorder D68.9 [place] [address] [place] [address] Apr, [place] [address] [place] [address] Apr, [place] [address] [place] [address] Apr, Type 2 [place] [address] without complication, without long-term current use of insulin E11.9 [place] [address] Apr, [place] [address] Apr, [place] [address] Apr, [place] [address] 15 Apr, 2018 Type 2 [place] [address] without complication, without long-term current use of insulin E11.[address] 14 Apr, 2018 [place] [address] Apr, [place] [address] Apr, [place] [address] Apr, [place] [address] Apr, [place] [address] Apr, Bilateral [place] [address] sciatica, sciatica laterality unspecified M54.40 ; Type 2 diabetes mellitus without complication, without long-term current use of insulin E11.9 ; Essential hypertension I10 ; Vision changes H53.9 ; Rash R21 ; Other obesity due to excess calories E66.09 ; Body mass index (BMI) of 37.0-37.9 in adult Z68.37 and Encounter for immunization Z23 [facility] 60 [facility] Apr, [place] [address] Mar, [place] [address] Mar, [place] [address] Mar, [place] [address] [place] Mar, alf current use of [facility] [place]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 Z79.01 [address] Mar, [place] [address] Mar, [place] [address] I73.9 ; Left foot pain M79.672 ; Bilateral low back pain with sciatica, sciatica laterality unspecified M54.40 ; Other obesity due to excess calories E66.09 ; Body mass index (BMI) of 37.0-37.9 in adult Z68.37 ; 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 and Elevated liver enzymes R74.[address] Mar, [place] [address] Mar, [place] [address] Mar, Peripheral vascular disease [place] I73.9 ; Left foot pain M79.672 [address] ; Swelling of left foot M79.89 and Type 2 diabetes mellitus without complication, without long-term current use of insulin E11.[address] Mar, [place] [address] Feb, [place] [address] Feb, [place] [address] Feb, Type 2 [place] [address] without complication, without long-term current use of insulin E11.[address] Feb, [place] [address] [facility] [address] . [facility] Feb, [place] [address] Feb, [place] [address] [facility] Feb, Pain in right knee M25.561 [place] [address] Feb, [place] [address] Feb, [place] [address] Feb, [place] [address] Jan, [place] [address] [place] [address] Jan, [place] [address] [place] [address] Jan, Type 2 diabetes mellitus [facility] [place] [address] without complication, without long-term current use of insulin E11.9 ; Acute pain of right knee M25.561 ; Bilateral low back pain with sciatica, sciatica laterality unspecified M54.40 ; Generalized abdominal tenderness R10.817 ; Other obesity due to excess calories E66.09 and Body mass index (BMI) of 37.0-37.9 in adult Z68.37 [place] [address] Jan, [place] [address] [facility] [address] [facility] Jan, [place] [address] Jan, Rib pain on left side R07.81 [place] [address] [place] [address] Jan, [place] [address] [place] [address] Dec, [place] [address] Dec, [place] [address] [facility] [address] [facility] Dec, [place] [address] Dec, [place] [address] [facility] [address] [facility] Dec, [place] [address] [facility] 60 [facility] Dec, [place] [address] Dec, [place] [address] [place] November, [facility] [place] [address] [place] [address] November, [place] [address] November, Type 2 [place] [address] without complication, without long-term current use of insulin E11.9 ; Left hip pain M25.552 and Anxiety F41.[address] November, [place] [address] [place] November, [facility] [place] [address] [place] [address] November, [place] [address] [facility] [address] [facility] November, [place] [address] November, [place] [address] November, [place] [address] [place] [address] November, Type 2 [place] [address] without complication, without long-term current use of insulin E11.9 [place] [address] November, [place] [address] [place] [address] [place] November, Health [place] [address] Migel Nguyen [address] November, [place] [address] [place] [address] November, [place] [address] November, [place] [address] Oct, [place] [address] [place] [address] Oct, Vaginal yeast infection B37.3 ; [place] [address] Stomach pain R10.9 ; Other obesity due to excess calories E66.09 and Body mass index (BMI) of 37.0-37.9 in adult Z68.37 [place] [address] [place] Oct, Health [place] [address] [place] [address] Oct, [place] [address] [place] [address] [place] Oct, Health [place] [address] [place] [address] Oct[place] [address] [place] [address] Sep, [place] [address] [place] [address] Sep, [place] [address] [place] [address] Sep, Right upper [place] [address] R10.11 [place] [address] [place] Sep, Health [place] [address] [place] [address] Sep, [place] [address] [place] [address] Sep, [place] [address] [place] [address] Sep, Tenderness [place] [address] R19.8 and Right upper quadrant pain R10.11 [place] [address] Sep, [place] [address] [place] [address] Sep, [place] [address] [place] [address] Sep, Type 2 [place] [address] without complication, without long-term current use of insulin E11.9 ; Clotting disorder D68.9 ; 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 ; Essential hypertension I10 ; Anxiety F41.9 ; Generalized abdominal pain R10.84 ; Paresthesia of skin R20.2 ; Anesthesia of skin R20.0 ; Obesity (BMI 30-39.9) E66.9 and BMI 36.0-36.9,adult Z68.36 [place] [address] [place] Sep, [facility] [place] [address] [place] [address] Sep, [place] [address] [place] Sep, [place] [address] [place] [address] [place], [place] [address] [place] [address] Aug, [place] [address] [place] [address] Aug, Type 2 [place] [address] without complication, without long-term current use of insulin E11.9 [place] [address] Aug, [place] [address] [place] [address] Aug, Anesthesia of skin R20.0 ; [place] [address] Elevated transaminase level R74.0 ; Lump in throat R22.1 and Type 2 diabetes mellitus without complication, without long-term current use of insulin E11.9 [place] [address] Aug, [place] [address] [place] [address] Aug, [place] [address] [place] [address] Aug, Raynaud''s [place] [address] gangrene I73[address] Aug, [place] [address] Aug, Raynaud''s [place] [address] gangrene I73.00 [place] [address] Aug, [place] [address] [place] [address] Jul, [place] [address] [place] [address] Jul, [place] [address] [place] [address] Jul, Raynaud''s [place] [address] gangrene I73.00 and Lymphadenopathy R59.1 [facility] [address] [place] Jul, [place], [place] [address] [facility] [address] [facility] Jul, [place] [address] [place] [address] Jul, Raynaud''s [place] [address] gangrene I73.00 [place] [address] Jul, [place] [address] Jul, Uncontrolled type 2 [place] [address] mellitus without complication, without long-term current use of insulin E11.[address] Jul, [place] [address] Jun, [place] [address] [place] Jun, [place] [address] Jun, [place] [address] [place] Jun, Health [place] [address] [place] [address] [place] Jun, [place] [address] Jun, Epigastric pain R10.13 ; Type 2 [place] [address] diabetes mellitus without complication, without long-term current use of insulin E11.9 ; Clotting disorder D68.9 ; Obesity (BMI 30-39.9) E66.9 ; BMI 35.0-35.9,adult Z68.35 and Colon cancer screening Z12.[address] Jun, [place] [address] Jun, [place] [address] Jun, [place] [address] Jun, [place] [address] May, Pure hypercholesterolemia E78.0 [place] [address] May, Rib pain on left side R07.81 ; [place] [address] Pneumonia of both lungs due to infectious organism, unspecified part of lung J18.9 ; Clotting disorder D68.9 ; alf current use of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 Z79.01 ; Obesity (BMI 30-39.9) E66.9 and BMI 35.0-35.9,adult Z68.[address] May, Uncontrolled [place] [address] mellitus without complication, without long-term current use of insulin E11.[address] May, [place] [address] May, Pneumonia [place] [address] infectious organism, unspecified part of lung J18.[address] May, Pneumonia [place] [address] infectious organism, unspecified part of lung J18.[address] May, Uncontrolled type 2 [place] [address] mellitus without complication, without long-term current use of insulin E11.[address] [place] May, [place] [address] May, [place] [address] May, Fatty liver K76.0 ; Elevated [facility] [place] [address] LFTs R79.89 ; Clotting disorder D68.9 ; Cigarette nicotine dependence without complication F17.210 ; Obesity (BMI 30-39.9) E66.9 and BMI 35.0-35.9,adult Z68.[address] [place] May, Uncontrolled type 2 [place] [address] mellitus without complication, without long-term current use of insulin E11.[address] May, [place] [address] [facility] [address] [facility] 30 Apr, 2017 [place] [address] Apr, Left upper quadrant pain R10.12 [place] [address] ; Transaminase or LDH elevation R74.0 ; Wheezing R06.2 and Cigarette nicotine dependence with nicotine-induced disorder F17.[address] Apr, Type 2 [place] [address] without complication, without long-term current use of insulin E11.[address] Apr, [place] [address] Apr, Uncontrolled type 2 [place] [address] mellitus without complication, without long-term current use of insulin E11.[address] Apr, [place] [address] Apr, Right lower [place] [address] [address]10[address] Apr, Right lower [place] [address] R10.31 ; Urinary frequency R35.0 and Essential hypertension I10 [facility] Apr, [place] [address] Apr, [place] [address] Apr, [place] [address] [facility] 60 [facility] [place] Apr, [place] [address] Mar, [place] [address] Mar, [facility] [place] [address] [place] [address] Mar, [place] [address] Mar, [place] [address] Mar, Uncontrolled type 2 [place] [address] mellitus without complication, without long-term current use of insulin E11.65 and Screening for breast cancer Z12.[address] Mar, [place] [address] 14 Mar, 2017 [place] [address] [facility] [address] [place] 12 Mar, 2017 Health [place] [address] [facility] [address] Mar, [place] [address] [place] [facility] [address] [place] 09 Mar, 2017 Health [facility] [place] [address] [facility] [address] 08 Mar, 2017 Impaired fasting glucose R73.01 [place] [address] and Uncontrolled type 2 diabetes mellitus without complication, without long-term current use of insulin E11.65 [place] [address] Mar, [place] [address] [facility] [address] Mar, [place] [address] [place] [address] Mar, [place] [address] [place] [address] Mar, [place] [address] [place] [address] Feb, [place] [address] [place] [address] Feb, [place] [address] [place] [address] Feb, [place] [address] [place] [address] Feb, Bruising T14.8 [place] [address] hypercholesterolemia E78.0 [facility] [address] [facility] Feb, [place] [address] [place] [address] [place] [address] [facility] [address] [place] Feb, Health [place] [address] [place] [address] [place] Feb, Cigarette nicotine dependence Health [place] [address] with nicotine-induced disorder F17.219 [facility] [address] [place] [address] Feb, [place] [address] [place] [address] Feb, [place] [address] [place] [address] [place] Feb, Cigarette nicotine dependence Health [place] [address] with nicotine-induced disorder F17.219 [place] [address] [place] Jan, Health [place] [address] [place] [address] Jan, [place] [address] [place] [address] 17 Jan, 2017 Tension headache G44.209 ; [place] [address] Bilateral low back pain with sciatica, sciatica laterality unspecified M54.40 ; Cigarette nicotine dependence with nicotine-induced disorder F17.219 ; Sprain of ribs, initial encounter S23.41XA ; Pure hypercholesterolemia E78.0 and Essential hypertension I10 [address] 14 Jan, 2017 [place] [address] [place] [address] Jan, [place] [address] [place] [address] Jan, [place] [address] [place] [address] Jan, [place] [address] [facility] [address] [place] Dec, [place] [address] [place] [address] Dec, [place] [address] [place] [address] [place], [place] [address] [place] [address] [place] Dec, [place] [address] [place] [address] Dec, [place] [address] [place] [address] Dec, Tension headache G44.209 ; [place] [address] Clotting disorder D68.9 ; 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 ; Cigarette nicotine dependence with nicotine-induced disorder F17.219 and Obesity (BMI 30-39.9) E66.9 [place] [address] Dec, [place] [address] [place] [address] Dec, [place] [address] [place] [address] Dec, Bilateral [place] [address] sciatica, sciatica laterality unspecified M54.40 and Clotting disorder D68.[address] [place] [address] Dec, [place] [address] [place] [address] Dec, Clotting disorder D68.9 ; [place] [address] term current use of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 Z79.01 and Cigarette nicotine dependence with nicotine-induced disorder F17.219 [place] [address] Dec, [place] [address] [place] [address] Dec, [place] [address] [facility] [address] [place] Dec, [place] [address] [place] [facility] [address] November, [place] [address] [place] [address] November[place] [address] [place] [address] November, [place] [address] [place] [address] November, [place] [address] [place] [address] November, [place] [address] [place] [address] November, [place] [address] [place] [address] November, [place] [address] [place] [address] November, [place] [address] [place] [address] November[place] [address] [place] [address] November, [place] [address] [place] [address] November, [place] [address] [place] [address] November[place] [address] [place] [address] Oct, [place] [address] [place] [address] Oct, [place] [address] [place] [address] Oct, [place] [address] [place] [address] Oct, [place] [address] [place] [address] Oct, [place] [address] [place] [address] Oct, Other chest pain R07.89 ; Pain, [place] [address] arm, left M79.602 ; Posterior left knee pain M25.562 ; Essential hypertension I10 and Hypercholesteremia E78.00 [place] [address] Oct, [place] [address] [place] [address] Oct, Weakness of left arm R29.898 ; [place] [address] History of coagulopathy Z86.2 and Pain, arm, left M79.602 [place] [address] Oct, [place] [address] [place] [address] Oct, [place] [address] [place] [address] Sep, [place] [address] [place] [address] Sep, [place] [address] [place] [address] Sep, [place] [address] [place] [address] Sep, [place] [address] [place] [address] [place] [address] [place] [address] Sep, [place] [address] [place] [address] Sep, [place] [address] [place] [address] Sep, [place] [address] [place] [address] Aug, [place] [address] [place] [address] [place], [place] [address] [place] [address] Aug, 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 inspector [place] [address]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 Z79.01 ; Cigarette nicotine dependence with nicotine-induced disorder F17.219 and Anxiety F41.[address] Aug, [place] [address] [place] [address] Aug, [place] [address] [place] [address] [place] [address] [place] [address] Aug, [place] [address] [place] [address] Aug, [place] [address] [place] [address] Aug, [place] [address] [place] [address] Aug, [place] [address] [place] [address] Jul, termite inspector [place] [address]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 Z79.01 [place] [address] Jul, Tobacco abuse Z72.0 [place] [address] [place] [address] Jul, [place] [address] [place] [address] Jul, [place] [address] [place] [address] Jul, Abnormal [place] [address] R91.8 [place] [address] Jul, Pulmonary nodules R91.8 [place] [address] [place] [address] Jul, [place] [address] [place] [address] Jul, Tension headache G44.209 ; [place] [address] Bilateral low back pain with sciatica, sciatica laterality unspecified M54.40 ; Cigarette nicotine dependence with nicotine-induced disorder F17.219 ; Wheezing R06.2 and alf current use of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 Z79.01 [place] [address] Jul, [place] [address] [facility] [address] [facility] Jul, [place] [address] [facility] [address] [facility] Jun, [place] [address] [place] [address] Jun, [place] [address] [place] [address] Jun, Chronic headache R51 [place] [address] [place] [address] Jun, [place] [address] [place] [address] Jun, [place] [address] [place] [address] Jun[place] [address] [place] [address] Jun, [place] [address] [place] [address] Jun, [place] [address] [place] [address] Jun, Tension headache G44.209 [place] [address] [place] [address] May, [place] [address] [place] [address] May, Clotting disorder D68.9 [place] [address] [place] [address] May, Tension headache G44.209 [place] [address] [place] [address] May, [place] [address] [place] [address] May, Encounter for immunization Z23 [place] [address] ; Tension headache G44.209 ; Clotting disorder D68.9 ; Essential hypertension I10 ; Cigarette nicotine dependence with nicotine-induced disorder F17.219 ; Pure hypercholesterolemia E78.0 and Hemorrhage from respiratory passages, unspecified R04.9 [place] [address] May, [place] [address] [place] [address] May, Tension headache G44.209 [place] [address] [place] [address] May, [place] [address] [place] [address] May[place] [address] [place] [address] May, [place] [address] [place] [address] May, [place] [address] [place] [address] May[place] [address] [facility] [address] May, [place] [address] [place] [address] May, [place] [address] [place] [address] Apr, Clotting disorder D68.9 [place] [address] [facility] [address] [facility] Apr, [place] [address] [facility] [address] Apr, [place] [address] [place] [address] Apr, [place] [address] [place] [address] Apr[place] [address] [place] [address] Apr, [place] [address] [place] [address] Apr, [place] [address] [place] [address] Apr, Clotting disorder D68.9 [place] [address] alf current use of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 Z79.01 [place] [address] Mar, [place] [address] [place] [address] Mar, [place] [address] [place] [address] Mar, Hypomagnesemia E83.42 [place] [address] Abdominal hernia K46.9 [place] [address] Mar, [place] [address] [place] [address] Mar[place] [address] [place] [address] Mar, [place] [address] [place] [address] Feb, [place] [address] [place] [address] Feb, [place] [address] [place] [address] Feb, alf [place] [address]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 Z79.01 [place] [address] Feb, Contusion of lower leg, [facility] [place] [address] unspecified laterality, initial encounter S80.10XA and alf current use of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 Z79.[address] Feb, [place] [address] Feb, [place] [address] [place] [address] Feb, [place] [address] [place] [address] Feb[place] [address] [place] [address] Jan, [place] [address] Jan, [place] [address] [place] [address] Dec[place] [address] [place] [address] Dec, [place] [address] [place] [address] Dec, [place] [address] with nicotine-induced disorder F17.219 ; Seasonal allergies J30.2 ; Pain in right knee M25.561 and Pain in left knee M25.562 [place] [address] Dec, [place] [address] [place] [address] Dec, [place] [address] Dec, [place] [address] [place] [address] November, [place] [address] November, [place] [address] Migel Nguyen [address] November, [facility] [place] [address] [place] [address] Oct, [place] [address] Oct, [place] [address] [place] [address] Sep[place] [address] Sep, [place] [address] Sep, [place] [address] [place] [address] 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, 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 Z79.01 ; Cigarette nicotine dependence with nicotine-induced disorder F17.219 ; Generalized abdominal tenderness R10.817 and Essential hypertension I10 [address] Aug, termite [place] [address]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 Z79.01 ; Bilateral low back pain with sciatica, sciatica laterality unspecified M54.40 and Cigarette nicotine dependence with nicotine-induced disorder F17.[address] Aug, [place] [address] Aug, Essential hypertension I10 ; [place] [address] Acute nasopharyngitis J00 and Cigarette nicotine dependence with nicotine-induced disorder F17.[address] Aug, [place] [address] Aug, [place] [address] sciatica, sciatica laterality unspecified M54.40 ; Cigarette nicotine dependence with nicotine-induced disorder F17.219 ; Pain in right leg M79.604 ; Pain of left leg M79.605 ; Clotting disorder D68.9 and Anxiety F41.[address] Jul, [place] [address] Jul, [place] [address] Jul, [place] [address] [place] [address] Jul, Pure hypercholesterolemia E78.0 [place] [address] Jul, Pain in right leg M79.604 ; [place] [address] Pain of left leg M79.605 ; Cigarette nicotine dependence with nicotine-induced disorder F17.219 ; Chronic fatigue R53.82 and Pure hypercholesterolemia E78.0 IMMUNIZATIONS No Known Immunizations SOCIAL HISTORY Never Assessed REASON FOR REFERRAL FUNCTIONAL STATUS PLAN OF CARE VITAL SIGNS MEDICATIONS Unknown Medications PROCEDURES No Known procedures RESULTS No Results REASON FOR VISIT Medication Insurance Providers [facility] Health Member Patient Patient Patient Patient Patient Subscriber Subscriber Subscriber Group Insurance Plan Plan Plan Plan ID Relationship Address Phone Name Date of ID Name Date of No Type Insurance Insurance Insurance Coverage to Subscriber Address Phone Name Dates [facility] [phone] [employer] self Marii [id number] [place] [id number] [place] P[place] [facility] [place] [facility] [address] Medical Medicare [place] [phone] Medicare self Marii [id number] PPS Government 41 PPS [place] [facility] [address] [place] [id number] [place] [phone] [place] [id number] DOI Insurance [id number] Insurance [place] 9 [id number] [facility] 0 [id number] Case [phone] Case self Marii [id number] Management [place] 02 Management [facility] [address] [facility] Medicaid [id number] Medicaid self Marii [id number] [facility] 00 [place] [address] Medicare [place] [phone] Medicare self Marii [id number] PPS QMB No Government 41 PPS QMB No [place] [employer] e [address] [facility] [id number] MEDICAL (GENERAL) HISTORY Type Description Date Medical History chronic back pain- bulging discs- Dr Miranda- disabled Medical History clotting disorder- will review records Medical History hyperlipidemia Medical History stress echo 2014 Medical History Raynaud's disease Medical History DMII Medical History History of chronic back pain Medical History Cigarette nicotine dependence with nicotine-induced disorder (quit 2016) Medical History Bilateral low back pain with sciatica, sciatica laterality unspecified Medical History alf current use of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 Medical History Hx of deep venous thrombosis Medical History alf current use of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 Medical History Abdominal aorta thrombosis Surgical History Aortic Abdominal Bypass 2013 Surgical History Hysterectomy; ovaries and cervix removed as well 2001 Surgical History galbladder 2003 Surgical History sinus surgery Surgical History ear surgery with tubes Surgical History Bladder sling 2010 Surgical History both ears surgery with tubes 2019 Hospitalization History same as above
--- OUTSIDE RECORDS SUMMARY | 2019-07-30 08:22 | XMS REPORT ---
:1965 Author Organization [facility] Address [address] [place] [address] Care Team Providers Name Role Phone Austin Radford Unavailable Unavailable PROBLEMS Type Condition ICD9-CM NOR64-IZ Onset Condition SNOMED Code Code Code Dates Status Problem Cubital tunnel syndrome, G56.22 Active 26007850 left Problem Bilateral carpal tunnel G56.03 Active 42751991 syndrome Problem Type 2 diabetes mellitus E11.9 Active 075265355 without complications Problem Diaphragmatic hernia K44.9 Active 28723960 without obstruction or gangrene Problem GERD (gastroesophageal K21.9 Active 456464381 reflux disease) Problem Pulmonary nodule R91.1 Active 354395945 Problem Essential hypertension I10 Active 49068631 Problem Peripheral vascular I73.9 Active 642462245 disease Problem Pure E78.0 Active 628978534 hypercholesterolemia Problem Fatty liver K76.0 Active 753726625 Problem Elevated transaminase R74.0 Active 981393185 level Problem Stage 1 chronic kidney N18.1 Active 226779623 disease Problem Anxiety F41.9 Active 09026949 Problem Primary insomnia F51.01 Active 0332989 Problem Tension headache G44.209 Active 764593258 Problem Status post Z95.828 Active 236783497 aortobifemoral bypass surgery Problem Other obesity due to E66.09 Active 409131594 excess calories Problem Body mass index (BMI) of Z68.37 Active 727843547 37.0-37.9 in adult Problem Bilateral low back pain M54.40 Active 03999964 with sciatica, sciatica laterality unspecified Problem penitentiary current use of Z79.4 Active 158460034 insulin ALLERGIES No Information ENCOUNTERS Encounter Location Date Diagnosis [address] Aug, [place] [address] Jul, [place] [address] Jul, [place] [address] Jul, [place] [address] Jul, Local infection [place] [address] subcutaneous tissue, unspecified L08.9 and Bitten by dog, initial encounter W54.0XXA [address] Jul, Type 2 [place] [address] without complications E11.[address] Jul, Plantar tendonitis M77.9 [place] [address] Type 2 diabetes mellitus without complications E11.[address] [place] Jul, [place] [address] Jul, [place] [address] Jun, [place] [address] Jun, Encounter for [place] [address] and ear disorders Z13.[address] Jun, [place] [address] Jun, Type 2 [place] [address] without complications E11.9 ; Encounter for immunization Z23 and penitentiary current use of insulin Z79.[address] Jun, Type 2 diabetes mellitus [place] without complications E11.9 [address] May, [place] [address] May, [place] [address] Mar, [place] [address] Mar, [place] [address] [facility] [address] [facility] Mar, [facility] [place] [address] [place] [address] Mar, [place] [address] [place] [address] Mar, Type 2 [place] [address] without complications E11.[address] Mar, Fatty liver K76.0 ; [place] [address] anterior shoulder pain M25.512 and Type 2 diabetes mellitus without complications E11.9 [facility] [address] [facility] Feb, Pain in left shoulder M25.512 [place] [address] [facility] [address] [facility] Feb, [place] [address] Feb, Type 2 [place] [address] without complication, without long-term current use of insulin E11.[address] Feb, Acute [place] [address] M25.512 and Type 2 diabetes mellitus without complication, without long-term current use of insulin E11.9 [place] [address] Feb, Elevated liver enzymes R74.8 [place] [address] [facility] [address] [place] [address] Jan, [place] [address] Jan, [place] [address] Jan, [place] [address] [place] [address] Jan, [place] [address] Jan, [place] [address] [place] [address] Dec, Type 2 [place] [address] without complication, without long-term current use of insulin E11.9 ; Screening for breast cancer Z12.31 and Primary insomnia F51.01 [place] [address] Dec, [place] [address] [place] [address] Dec, [place] [address] [place] [address] Dec, [place] [address] [place] [address] November, [place] [address] November, [place] [address] November, [place] [address] Mig[address] November, [facility] [place] [address] November, Type 2 [place] [address] without complication, without long-term current use of insulin E11.[address] Oct, Type 2 [place] [address] without complication, without long-term current use of insulin E11.[address] Oct, Type 2 [place] [address] without complication, without long-term current use of insulin E11.9 ; Transaminitis R74.0 ; penitentiary current use of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 Z79.01 and Chest pain at rest R07.[address] Sep, Type 2 diabetes mellitus [place] without complications E11.9 [address] Aug, [place] [address] Aug, [place] [address] [place] [address] Aug, Type 2 diabetes mellitus [place] without complications E11.9 [address] Jul, Type 2 diabetes mellitus [place] without complications E11.9 [address] Jul, Bladder pain R39.89 ; Type 2 [place] [address] diabetes mellitus without complications E11.9 and penitentiary current use of insulin Z79.[address] Jul, Uncontrolled type 2 [place] [address] mellitus without complication, without long-term current use of insulin E11.[address] Jul, Type 2 [place] [address] without complication, without long-term current use of insulin E11.[address] Jul, [place] [address] Jul, [place] [address] Jul, Status post [place]ob[place] [address] bypass surgery Z95.828 [place] [address] Jul, [place] [address] [place] [address] [place] Jun, [place] [address] [place] [facility] [address] [facility] Jun, [place] [address] Jun, [place] [address] [place] [address] [place] [address] [place] [address] [place], [place] [address] [facility] [address] Jun, [place] [address] [place] [address] Jun, [place] [address] May, [place] [address] May, penitentiary [place] [address]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 Z79.[address] [place] [address] May, Bronchitis J40 ; [place] [address] maxillary sinusitis J01.00 ; Clotting disorder D68.9 and Type 2 diabetes mellitus without complication, without long-term current use of insulin E11.[address] May, [place] [address] Apr, [place] [address] [place] [address] Apr, [place] [address] [place] [address] Apr, Clotting disorder D68.9 [place] [address] [place] [address] Apr, [place] [address] [place] [address] Apr, [place] [address] [place] [address] Apr, Type 2 [place] [address] without complication, without long-term current use of insulin E11.9 [place] [address] Apr, [place] [address] Apr, [place] [address] Apr, [place] [address] 15 Apr, 2018 Type 2 [place] [address] without complication, without long-term current use of insulin E11.[address] 14 Apr, 2018 [place] [address] Apr, [place] [address] Apr, [place] [address] Apr, [place] [address] Apr, [place] [address] Apr, Bilateral [place] [address] sciatica, sciatica laterality unspecified M54.40 ; Type 2 diabetes mellitus without complication, without long-term current use of insulin E11.9 ; Essential hypertension I10 ; Vision changes H53.9 ; Rash R21 ; Other obesity due to excess calories E66.09 ; Body mass index (BMI) of 37.0-37.9 in adult Z68.37 and Encounter for immunization Z23 [facility] [address] [facility] Apr, [place] [address] Mar, [place] [address] Mar, [place] [address] Mar, [place] [address] [place] Mar, penitentiary current use of [facility] [place]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 Z79.01 [address] Mar, [place] [address] Mar, Per[place] [address] I73.9 ; Left foot pain M79.672 ; Bilateral low back pain with sciatica, sciatica laterality unspecified M54.40 ; Other obesity due to excess calories E66.09 ; Body mass index (BMI) of 37.0-37.9 in adult Z68.37 ; 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 and Elevated liver enzymes R74.[address] Mar, [place] [address] Mar, [place] [address] Mar, Peripheral vascular disease [place] I73.9 ; Left foot pain M79.672 [address] ; Swelling of left foot M79.89 and Type 2 diabetes mellitus without complication, without long-term current use of insulin E11.[address] Mar, [place] [address] Feb, [place] [address] Feb, [place] [address] Feb, Type 2 [place] [address] without complication, without long-term current use of insulin E11.[address] Feb, [place] [address] [facility] [address] [facility] Feb, [place] [address] Feb, [place] [address] [facility] Feb, Pain in right knee M25.561 [place] [address] Feb, [place] [address] Feb, [place] [address] Feb, [place] [address] Jan, [place] [address] [place] [address] Jan, [place] [address] [place] [address] Jan, Type [address] [place] [address] without complication, without long-term current use of insulin E11.9 ; Acute pain of right knee M25.561 ; Bilateral low back pain with sciatica, sciatica laterality unspecified M54.40 ; Generalized abdominal tenderness R10.817 ; Other obesity due to excess calories E66.09 and Body mass index (BMI) of 37.0-37.9 in adult Z68.37 [place] [address] Jan, [place] [address] [facility] [address] [facility] Jan, [place] [address] Jan, Rib pain on left side R07.81 [place] [address] [place] [address] Jan, [place] [address] [place] [address] Dec, [place] [address] Dec, [place] [address] [facility] [address] [facility] Dec, [place] [address] [place], [place] [address] [facility] [address] [facility] Dec, [place] [address] [facility] [address] [facility] Dec, [place] [address] [place], [place] [address] [address] [place] November, [facility] [place] [address] [place] [address] November, [place] [address] November, Type 2 [place] [address] without complication, without long-term current use of insulin E11.9 ; Left hip pain M25.552 and Anxiety F41.[address] November, [place] [address] [place] November, [facility] [place] [address] [place] [address] November, [place] [address] [facility] [address] [facility] November, [place] [address] November, [place] [address] November, [place] [address] [place] [address] November, Type 2 [place] [address] without complication, without long-term current use of insulin E11.9 [place] [address] November, [place] [address] [place] [address] [place] November, [facility] [place] [address] Migel Nguyen [address] November, [place] [address] [place] [address] November, [place] [address] November, [place] [address] Oct, [place] [address] [place] [address] Oct, Vaginal yeast infection B37.3 ; [place] [address] Stomach pain R10.9 ; Other obesity due to excess calories E66.09 and Body mass index (BMI) of 37.0-37.9 in adult Z68.37 [place] [address] [place] Oct, [facility] [place] [address] [place] [address] Oct, [place] [address] [place] [address] [place] Oct, [facility] [place] [address] [place] [address] Oct, [place] [address] [place] [address] Sep, [place] [address] [place] [address] Sep, [place] [address] [place] [address] Sep, Right upper [place] [address] R10.11 [place] [address] [place] Sep, [facility] [place] [address] [place] [address] Sep, [place] [address] [place] [address] Sep, [place] [address] [place] [address] Sep, Tenderness [place] [address] R19.8 and Right upper quadrant pain R10.11 [place] [address] Sep, [place] [address] [place] [address] Sep, [place] [address] [place] [address] Sep, Type 2 [place] [address] without complication, without long-term current use of insulin E11.9 ; Clotting disorder D68.9 ; 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 ; Essential hypertension I10 ; Anxiety F41.9 ; Generalized abdominal pain R10.84 ; Paresthesia of skin R20.2 ; Anesthesia of skin R20.0 ; Obesity (BMI 30-39.9) E66.9 and BMI 36.0-36.9,adult Z68.36 [place] [address] [place] Sep, [facility] [place] [address] [place] [address] Sep, [place] [address] [place] Sep, [facility] [place] [address] [place] [address] Sep, [place] [address] [place] [address] Aug, [place] [address] [place] [address] Aug, Type 2 [place] [address] without complication, without long-term current use of insulin E11.9 [place] [address] Aug, [place] [address] [place] [address] Aug, Anesthesia of skin R20.0 ; [place] [address] Elevated transaminase level R74.0 ; Lump in throat R22.1 and Type 2 diabetes mellitus without complication, without long-term current use of insulin E11.9 [place] [address] Aug, [place] [address] [place] [address] Aug, [place] [address] [place] [address] Aug, Raynaud''s [place] [address]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 I73.[address] Aug, [place] [address] Aug, Raynaud''s [place] [address] gangrene I73.00 [place] [address] Aug, [place] [address] [place] [address] Jul, [place] [address] [place] [address] Jul, [place] [address] [place] [address] Jul, Raynaud''s [place] [address] gangrene I73.00 and Lymphadenopathy R59.1 [facility] [address] [place] Jul, [place], [place] [address] [facility] [address] [facility] Jul, [place] [address] [place] [address] Jul, Raynaud''s [place] [address] gangrene I73.00 [place] [address] Jul, [place] [address] Jul, Uncontrolled type 2 [place] [address] mellitus without complication, without long-term current use of insulin E11.[address] Jul, [place] [address] Jun, [place] [address] [address] [place] Jun, [place] [address] Jun, [place] [address] [address] [place] Jun, [facility] [place] [address] [place] [address] [place] Jun, [place] [address] Jun, Epigastric pain R10.13 ; Type 2 [place] [address] diabetes mellitus without complication, without long-term current use of insulin E11.9 ; Clotting disorder D68.9 ; Obesity (BMI 30-39.9) E66.9 ; BMI 35.0-35.9,adult Z68.35 and Colon cancer screening Z12.[address] Jun, [place] [address] Jun, [place] [address] Jun, [place] [address] Jun, [place] [address] May, Pure hypercholesterolemia E78.0 [place] [address] May, Rib pain on left side R07.81 ; [place] [address] Pneumonia of both lungs due to infectious organism, unspecified part of lung J18.9 ; Clotting disorder D68.9 ; penitentiary current use of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 Z79.01 ; Obesity (BMI 30-39.9) E66.9 and BMI 35.0-35.9,adult Z68.[address] May, Uncontrolled type 2 [place] [address] mellitus without complication, without long-term current use of insulin E11.[address] May, [place] [address] May, Pneumonia of both [place] [address] infectious organism, unspecified part of lung J18.[address] May, Pneumonia of both [place] [address] infectious organism, unspecified part of lung J18.[address] May, Uncontrolled type 2 [place] [address] mellitus without complication, without long-term current use of insulin E11.[address] [place] May, [place] [address] May, [place] [address] May, Fatty liver K76.0 ; [place] [address] LFTs R79.89 ; Clotting disorder D68.9 ; Cigarette nicotine dependence without complication F17.210 ; Obesity (BMI 30-39.9) E66.9 and BMI 35.0-35.9,adult Z68.[address] [place] May, Uncontrolled type 2 [place] [address] mellitus without complication, without long-term current use of insulin E11.[address] May, [place] [address] [facility] [address] [facility] 30 Apr, 2017 [place] [address] Apr, Left upper quadrant pain R10.12 [place] [address] ; Transaminase or LDH elevation R74.0 ; Wheezing R06.2 and Cigarette nicotine dependence with nicotine-induced disorder F17.[address] Apr, Type 2 [place] [address] without complication, without long-term current use of insulin E11.[address] Apr, [place] [address] Apr, Uncontrolled type 2 [place] [address] mellitus without complication, without long-term current use of insulin E11.[address] Apr, [place] [address] Apr, Right lower [place] [address] [address]10[address] Apr, Right [place] [address] R10.31 ; Urinary frequency R35.0 and Essential hypertension I10 [facility] Apr, [place] [address] Apr, [place] [address] Apr, [place] [address] [facility] [address] [facility] Apr, [place] [address] Mar, [place] [address] Mar, [facility] [place] [address] [place] [address] Mar, [place] [address] Mar, [place] [address] Mar, Uncontrolled type 2 [place] [address] mellitus without complication, without long-term current use of insulin E11.65 and Screening for breast cancer Z12.[address] Mar, [place] [address] 14 Mar, 2017 [place] [address] [facility] [address] [place] 12 Mar, 2017 Health [place] [address] [facility] [address] Mar, [place] [address] [place] [facility] [address] [place] 09 Mar, 2017 Health [facility] [place] [address] [facility] [address] 08 Mar, 2017 Impaired fasting glucose R73.01 [place] [address] and Uncontrolled type 2 diabetes mellitus without complication, without long-term current use of insulin E11.65 [place] [address] Mar, [place] [address] [facility] [address] Mar, [place] [address] [place] [address] Mar, [place] [address] [place] [address] Mar, [place] [address] [place] [address] Feb, [place] [address] [place] [address] Feb, [place] [address] [place] [address] Feb, [place] [address] [place] [address] Feb, [place] T14.8 [place] [address] [facility] [address] [facility] Feb, [place] [address] [place] [address] Feb, [place] [address] [facility] [address] [place] Feb, Health [place] [address] [place] [address] [place] Feb, Cigarette nicotine dependence Health [place] [address] with nicotine-induced disorder F17.219 [facility] [address] [place] [address] Feb, [place] [address] [place] [address] Feb, [place] [address] [place] [address] [place] Feb, Cigarette nicotine dependence Health [place] [address] with nicotine-induced disorder F17.219 [place] [address] [place] Jan, [place] [address] [place] [address] Jan, [place] [address] [place] [address] 17 Jan, 2017 Tension headache G44.209 ; [place] [address] Bilateral low back pain with sciatica, sciatica laterality unspecified M54.40 ; Cigarette nicotine dependence with nicotine-induced disorder F17.219 ; Sprain of ribs, initial encounter S23.41XA ; Pure hypercholesterolemia E78.0 and Essential hypertension I10 [address] 14 Jan, 2017 [place] [address] [place] [address] Jan, [place] [address] [place] [address] Jan, [place] [address] [place] [address] Jan, [place] [address] [facility] [address] [place] Dec, [place] [address] [place] [address] Dec, [place] [address] [place] [address] [place], [place] [address] [place] [address] [place] Dec, [place] [address] [place] [address] Dec, [place] [address] [place] [address] Dec, Tension headache G44.209 ; [place] [address] Clotting disorder D68.9 ; 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 ; Cigarette nicotine dependence with nicotine-induced disorder F17.219 and Obesity (BMI 30-39.9) E66.[address] [place] [address] Dec, [place] [address] [place] [address] Dec, [place] [address] [place] [address] Dec, Bilateral [place] [address] sciatica, sciatica laterality unspecified M54.40 and Clotting disorder D68.[address] [place] [address] Dec, [place] [address] [place] [address] Dec, Clotting disorder D68.9 ; [place] [address] term current use of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 Z79.01 and Cigarette nicotine dependence with nicotine-induced disorder F17.219 [place] [address] Dec, [place] [address] [place] [address] Dec, [place] [address] [facility] [address] [place] Dec, [place] [address] [place] [facility] [address] November, [place] [address] [place] [address] November[place] [address] [place] [address] November, [place] [address] [place] [address] November, [place] [address] [place] [address] November, [place] [address] [place] [address] November, [place] [address] [place] [address] November, [place] [address] [place] [address] November, [place] [address] [place] [address] November, [place] [address] [place] [address] November, [place] [address] [place] [address] November, [place] [address] [place] [address] November, [place] [address] [place] [address] Oct, [place] [address] [place] [address] Oct, [place] [address] [place] [address] Oct, [place] [address] [place] [address] Oct, [place] [address] [place] [address] Oct, [place] [address] [place] [address] Oct, Other chest pain R07.89 ; Pain, [place] [address] arm, left M79.602 ; Posterior left knee pain M25.562 ; Essential hypertension I10 and Hypercholesteremia E78.00 [place] [address] Oct, [place] [address] [place] [address] Oct, Weakness of left arm R29.898 ; [place] [address] History of coagulopathy Z86.2 and Pain, arm, left M79.602 [place] [address] Oct, [place] [address] [place] [address] Oct, [place] [address] [place] [address] Sep, [place] [address] [place] [address] Sep, [place] [address] [place] [address] Sep, [place] [address] [place] [address] Sep, [place] [address] [place] [address] Sep, [place] [address] [place] [address] Sep, [place] [address] [place] [address] Sep, [place] [address] [place] [address] Sep, [place] [address] [place] [address] Aug, [place] [address] [place] [address] Aug, [place] [address] [place] [address] Aug, 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[address]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 Z79.01 ; Cigarette nicotine dependence with nicotine-induced disorder F17.219 and Anxiety F41.[address] Aug, [place] [address] [place] [address] [place] Aug, [place] [address] [place] [address] Aug[place] [address] [place] [address] Aug, [place] [address] [place] [address] Aug, [place] [address] [place] [address] Aug, [place] [address] [place] [address] Aug, [place] [address] [place] [address] Jul, 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[place] [address]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 Z79.01 [place] [address] Jul, Tobacco abuse Z72.0 [place] [address] [place] [address] Jul, [place] [address] [place] [address] Jul, [place] [address] [place] [address] Jul, Abnormal [place] [address] R91.[address] [place] [address] Jul, Pulmonary nodules R91.8 [place] [address] [place] [address] Jul, [place] [address] [place] [address] Jul, Tension headache G44.209 ; [place] [address] Bilateral low back pain with sciatica, sciatica laterality unspecified M54.40 ; Cigarette nicotine dependence with nicotine-induced disorder F17.219 ; Wheezing R06.2 and penitentiary current use of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 Z79.01 [place] [address] Jul, [place] [address] [facility] [address] [facility] Jul, [place] [address] [facility] [address] [facility] Jun, [place] [address] [place] [address] Jun, [place] [address] [place] [address] Jun, Chronic headache R51 [place] [address] [place] [address] Jun, [place] [address] [place] [address] Jun, [place] [address] [place] [address] Jun, [place] [address] [place] [address] Jun, [place] [address] [place] [address] Jun, [place] [address] [place] [address] Jun, Tension headache G44.209 [place] [address] [place] [address] May, [place] [address] [place] [address] May, Clotting disorder D68.9 [place] [address] [place] [address] May, Tension headache G44.209 [place] [address] [place] [address] May, [place] [address] [place] [address] May, Encounter for immunization Z23 [place] [address] ; Tension headache G44.209 ; Clotting disorder D68.9 ; Essential hypertension I10 ; Cigarette nicotine dependence with nicotine-induced disorder F17.219 ; Pure hypercholesterolemia E78.0 and Hemorrhage from respiratory passages, unspecified R04.9 [place] [address] May, [place] [address] [place] [address] May, Tension headache G44.209 [place] [address] [place] [address] May, [place] [address] [place] [address] May, [place] [address] [place] [address] May, [place] [address] [place] [address] May, [place] [address] [place] [address] [place] May[place] [address] [facility] [address] May, [place] [address] [place] [address] [place] May, [place] [address] [place] [address] [place] Apr, Clotting disorder D68.9 [place] [address] [facility] [address] [facility] Apr, [place] [address] [facility] [address] Apr, [place] [address] [place] [address] [place] Apr, [place] [address] [place] [address] [place] Apr, [place] [address] [place] [address] Apr, [place] [address] [place] [address] Apr, [place] [address] [place] [address] [place] Apr, Clotting disorder D68.9 [place] [address] penitentiary current use of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 Z79.01 [place] [address] Mar, [place] [address] [place] [address] Mar, [place] [address] [place] [address] Mar, Hypomagnesemia E83.42 [place] [address] Abdominal hernia K46.9 [place] [address] Mar, [place] [address] [place] [address] Mar, [place] [address] [place] [address] [place] Mar, [place] [address] [place] [address] Feb, [place] [address] [place] [address] Feb, [place] [address] [place] [address] [place] Feb, penitentiary [place] [address]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 Z79.01 [place] [address] [place] Feb, Contusion of lower leg, [place] [address] unspecified laterality, initial encounter S80.10XA and penitentiary current use of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 Z79.[address] Feb, [place] [address] Feb, [place] [address] [place] [address] [place] Feb, [place] [address] [place] [address] [place] Feb, [place] [address] [place] [address] [place] Jan, [place] [address] Jan, [place] [address] [place] [address] Dec, [place] [address] [place] [address] [place] Dec, [place] [address] [place] [address] [place] Dec, Cigarette [place] [address] with nicotine-induced disorder F17.219 ; Seasonal allergies J30.2 ; Pain in right knee M25.561 and Pain in left knee M25.562 [place] [address] Dec, [place] [address] [place] [address] Dec, [place] [address] Dec, [place] [address] [place] [address] November, [place] [address] November, [place] [address] Migel Nguyen [address] November, [facility] [place] [address] [place] [address] Oct, [place] [address] Oct, [place] [address] [place] [address] [place] Sep[place] [address] Sep, [place] [address] Sep, [place] [address] [place] [address] [place] 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, 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[place] [address]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 Z79.01 ; Cigarette nicotine dependence with nicotine-induced disorder F17.219 ; Generalized abdominal tenderness R10.817 and Essential hypertension I10 [address] Aug, 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 Z79.01 ; Bilateral low back pain with sciatica, sciatica laterality unspecified M54.40 and Cigarette nicotine dependence with nicotine-induced disorder F17.[address] Aug, [place] [address] Aug, Essential hypertension I10 ; [place] [address] Acute nasopharyngitis J00 and Cigarette nicotine dependence with nicotine-induced disorder F17.[address] Aug, [place] [address] Aug, B[place] [address] sciatica, sciatica laterality unspecified M54.40 ; Cigarette nicotine dependence with nicotine-induced disorder F17.219 ; Pain in right leg M79.604 ; Pain of left leg M79.605 ; Clotting disorder D68.9 and Anxiety F41.[address] Jul, [place] [address] Jul, [place] [address] Jul, [place] [address] [place] [address] Jul, Pure hypercholesterolemia E78.0 [place] [address] Jul, Pain in right leg M79.604 ; [place] [address] Pain of left leg M79.605 ; Cigarette nicotine dependence with nicotine-induced disorder F17.219 ; Chronic fatigue R53.82 and Pure hypercholesterolemia E78.0 IMMUNIZATIONS No Known Immunizations SOCIAL HISTORY Never Assessed REASON FOR REFERRAL FUNCTIONAL STATUS PLAN OF CARE Activity Details Follow Up Next DRS pending today's results. Reason: Future/Pending Procedure -Vision Screen VITAL SIGNS Height 5' in 2019-06-20 Blood pressure systolic 138 mm Hg 2019-06-20 Blood pressure diastolic 79 mm Hg 2019-06-20 MEDICATIONS Medication Instructions Dosage Frequency Start End Duration Status Date Date Complete Orally daily 1 cap(s) 24h Active Multi-Vitamin - Eliquis 2.5 MG Orally bid as directed 30 Active (start taking after INR >2.0) Basaglar KwikPen Subcutaneous qhs 55 units Jan, Active 100 UNIT/ML 2018 Atorvastatin Orally Once a 1 tablet 24h 30 Active Calcium 20 mg day Omeprazole 40 mg Orally Once a 1 capsule 24h 30 Active day FreeStyle Lite In Vitro bid for as directed Apr, 90 days Active Test - e11.9 2018 Percocet 10-325 Orally every 6 1 tablet as 6h Active MG hrs needed Trulicity 1.5 Subcutaneous 1.5mg Apr, 05 December, Active MG/0.5ML weekly 2017 2019 BD Pen Needle External qhs as directed Jul, 90 days Active Short U/F 31G X 2019 8 MM Lancet Devices - Device BID or as as directed May, 30 day(s) Active directed for 2018 E11.9 Aspir-81 81 MG Orally Once a 1 tablet 24h Active day OneTouch Delica Device bid as directed 12h 27 May, 90 days Active Lancets - 2016 PROCEDURES Procedure Date Ordered Result Body Site Dilated Retinal Eye Exam w Jun 20, 2019 Interpretation BLOOD PRESSURE, MEASURED Jun 20, 2019 Visual acuity screen Jun 20, 2019 -Digital Retinopathy Screening 2019-06-20 No Apparent Diabetic Dilated Retinopathy (ICD-10: E10.9) RESULTS No Results REASON FOR VISIT Insurance Providers [facility] Health Member Patient Patient Patient Patient Patient Subscriber Subscriber Subscriber Group Insurance Plan Plan Plan Plan ID Relationship Address Phone Name Date of ID Name Date of No Type Insurance Insurance Insurance Coverage to Subscriber Address Phone Name Dates [facility] [phone] [employer] self Marii [id number] [facility] [address] [place] P[place] [facility] [place] [facility] [address] Medical [place] [phone] [place] [id number] DOI Insurance [id number] Insurance [place] [id number] [facility] [place] [place] [id number] Medicare Ruth [phone] Medicare self Marii [id number] PPS Government 41 PPS [place] [facility] [address] [place] [id number] Medicare National [phone] Medicare self Marii [id number] PPS QMB No Government 41 PPS QMB No [place] [employer] e [address] [place] [id number] Case [phone] Case self Marii [id number] Management [place] 02 Management [facility] [address] Community Medicaid [id number] Medicaid self Marii [id number] [facility] [address] [place] [id number] MEDICAL (GENERAL) HISTORY Type Description Date Medical [...] with sciatica, sciatica laterality unspecified 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
--- NOTE | 2019-07-30 08:23 | ED ---
HPI Chest Pain - HPI Summary HPI Summary: Pt. is a 54 y.o female who presents to the ER for epigastric/chest pain that started yesterday. Pt. states pain seems to start in her epigastrium and radiates to her back and up into her chest. Pt. also notes she feels she has a lump in her throat and it hurts in her chest when she swallows. Pt. notes she had an aortic graft placed remotely. Currently on eliquis. Pt. notes a hx of GERD and hiatal hernia and take omeprazole. Pt. notes she is currently on clinda for a recent dog bite. Pt. notes she had a stress test within 6 mos and she states it was normal. Sxs are moderate in severity. No current modifying factors. Past medical hx of HTN, DM, HLD, aortic graft, hiatal hernia, GERD. - History of Current Complaint Time Seen by Provider: 07/30/19 08:22 Hx Obtained From: Patient - Additional Pertinent History Primary Care Physician: DARLYN - Allergy/Home Medications Allergies/Adverse Reactions: Allergies Allergy/AdvReac Type Severity Reaction Status Date / Time Penicillins Allergy Intermediate Swelling Verified 07/30/19 08:29 Home Medications: Home Medications Clindamycin Cap(NF) [Clindamycin Cap 300 mg Cap(NF)] 300 mg PO TID 07/30/19 [ History Confirmed 07/30/19] Dulaglutide (NF) [Trulicity (NF)] 1.5 ml IM WEEKLY 07/30/19 [History Confirmed 07/30/19] Insulin Glargine,Hum.rec.anlog [Basaglar Monsterpen U-100] 55 unit IM BEDTIME 07/30 [History Confirmed 07/30/19] Lidocaine PATCH 5%* [Lidoderm 5% Patch*] 1 patch TRANSDERM DAILY PRN 07/30/19 [ History Confirmed 07/30/19] PMH/Surg Hx/FS Hx/Imm Hx Previously Healthy: Yes Endocrine/Hematology History: Reports: Hx Diabetes Cardiovascular History: Reports: Hx Aneurysm - Abdominal, Hx Angina, Hx Deep Vein Thrombosis, Hx Hypercholesterolemia, Hx Hypertension, Other Cardiovascular Problems/Disorders - DIABETIC / Denies: Hx Myocardial Infarction, Hx Pacemaker/ICD Respiratory History: Denies: Hx Chronic Obstructive Pulmonary Disease (COPD) GI History: Reports: Hx Gastroesophageal Reflux Disease, Hx Hiatal Hernia, Other GI Disorders - GERD History: Reports: Other Problems/Disorders - Bladder Sling Denies: Hx Dialysis, Hx Renal Disease Musculoskeletal History: Reports: Hx Fibromyalgia, Other Musculoskeletal History - mild spinal stenosis with bulging disks, degenerative disk disease Sensory History: Reports: Hx Contacts or Glasses, Hx Deafness - Rt ear, Hx Hearing Aid Opthamlomology History: Reports: Hx Contacts or Glasses Neurological History: Reports: Hx Migraine - Current Admission, Other Neuro Impairments/Disorders - Nerve damage right neck Psychiatric History: Denies: Hx Panic Disorder - Surgical History Surgery Procedure, Year, and Place: cholecysectomy. hysterectomy. bladder sling. tonsilectomy and tubes in ears. abdominal aortic bypass-NO STENTING-IT WAS FOR NARROWING NOT ANEURYSM Infectious Disease History: Denies: Traveled Outside the [place] in Last 30 Days - Family History Known Family History: Positive: Diabetes - brother and 2 sisters, Non- Contributory - Social History Occupation: Disabled Lives: With Family Alcohol Use: None Hx Substance Use: No Substance Use Type: Reports: None Hx Tobacco Use: Yes Smoking Status (MU): Heavy Every Day Tobacco Smoker Type: Cigarettes Review of Systems Constitutional: Negative Negative: Fever Eyes: Negative ENT: Negative Positive: Chest Pain Positive: Shortness Of Breath Positive: Abdominal Pain, Nausea. Negative: Vomiting, Diarrhea Genitourinary: Negative Neurological: Negative All Other Systems Reviewed And Are Negative: Yes Physical Exam Triage Information Reviewed: Yes Vital Signs Reviewed: Yes Appearance: Positive: Pain Distress - Pt. lying in bed, appears uncomfortable but nontoxic. Skin: Positive: Warm, Dry Head/Face: Positive: Normal Head/Face Inspection Eyes: Positive: Normal, EOMI, ARASH Neck: Positive: Supple Respiratory/Lung Sounds: Positive: Clear to Auscultation, Breath Sounds Present Cardiovascular: Positive: Normal, RRR Abdomen Description: Positive: Other: - Abd. is soft with diffuse tenderness. No rebound or guarding. Musculoskeletal: Positive: Normal, Strength/ROM Intact Neurological: Positive: Normal, Alert, Oriented to Person Place, Time, CN Intact II-III Psychiatric: Positive: Affect/Mood Appropriate Procedures - Sedation Patient Received Moderate/Deep Sedation with Procedure: No Diagnostics - Laboratory Result Diagrams: 07/30/19 08:27 07/30/19 08:27 Lab Statement: Any lab studies that have been ordered have been reviewed, and results considered in the medical decision making process. Chest Pain Course/Dx - Course Assessment/Plan: Pt. with epigastric/chest pain. Rates pain 8/10. Stable VS. Given aorta sx hx and symptom today will obtain CTA chest/abd. for further evalution of possible dissection. ECG done at 0812 shows a sinus rhythm of 87bpm, normal axis, no STEMI. Pt. started on IV fluids and given morphine for pain. Labs unremarkable other than mildly low mag and glucose 180. Troponin x 2 negative for acute findings. CTAs negative for acute findings per radiology. On re-exam pt. resting comfortably but still c/o epigastic pain. Pt. given a GI cocktail and a dose of pepcid. HEART score is 3 putting her in low risk. After GI meds pt. feeling better and pain improving. Suspect pain is GI source. Pt. also notes she was doing a lot of heavy lifting recently while carrying firewood. Suspicion for cardio/pulomonary etiology is low. Case discussed with Dr. Alfredo who agrees with mo home. Pt. has an apt. with her PCP tomorrow. Will return to er if sxs change or worsen. Pt. understands and agrees with plan. - Chest Pain Differential Diagnosis/HQI/PQRI: Acute NE, ACS, Angina, Aortic Aneurysm, Chest Wall, GI Disease, Lower Respiratory Infection, Pulmonary Edema, Pulmonary Embolism - Diagnoses Provider Diagnoses: Atypical chest pain, Epigastric pain Discharge ED - Sign-Out/Discharge Documenting (check all that apply): Patient Departure - Discharge Plan Condition: Improved Disposition: HOME Patient Education Materials: Chest Pain (ED), Epigastric Pain (ED) Referrals: Joby Sanchez MD [Primary Care Provider] - Additional Instructions: Follow up with your PCP tomorrow as scheduled Return to ER if symptoms change or worsen - Billing Disposition and Condition Condition: IMPROVED Disposition: Home - Attestation Statements Provider Attestation: Patient presented to me by Reyes PADILLA. Patient is a 54-year-old female with epigastric pain that relates to her chest, back. Patient had a CTA performed which was negative for any aortic injury. Patient is of a history of aortic graft in the past and is on. Patient with a stress test recently which was negative. Patient had blood work performed which was gross unremarkable. Patient had a negative EKG for any ischemic changes. I never personally saw the patient and only discussed the case with the PA. Presents information, probably patient was safe for discharge with follow-up with her PCP tomorrow.
--- OUTSIDE RECORDS SUMMARY | 2019-07-30 08:23 | XMS REPORT ---
:1965 Author Organization [facility] Address [address] [place] [address] Care Team Providers Name Role Phone Austin Radford Unavailable Unavailable PROBLEMS Type Condition ICD9-CM [id number] Onset Condition SNOMED Code Code Code Dates Status Problem Cubital tunnel syndrome, G56.22 Active 27238642 left Problem Bilateral carpal tunnel G56.03 Active 31359100 syndrome Problem Type 2 diabetes mellitus E11.9 Active 277866708 without complications Problem Diaphragmatic hernia K44.9 Active 81748876 without obstruction or gangrene Problem GERD (gastroesophageal K21.9 Active 125902241 reflux disease) Problem Pulmonary nodule R91.1 Active 237049012 Problem Essential hypertension I10 Active 26090419 Problem Peripheral vascular I73.9 Active 301716118 disease Problem Pure E78.0 Active 437882029 hypercholesterolemia Problem Fatty liver K76.0 Active 866326339 Problem Elevated transaminase R74.0 Active 668081117 level Problem Stage 1 chronic kidney N18.1 Active 018611172 disease Problem Anxiety F41.9 Active 60214981 Problem Primary insomnia F51.01 Active 4027530 Problem Tension headache G44.209 Active 127070690 Problem Status post Z95.828 Active 419449597 aortobifemoral bypass surgery Problem Other obesity due to E66.09 Active 600928752 excess calories Problem Body mass index (BMI) of Z68.37 Active 381076692 37.0-37.9 in adult Problem Bilateral low back pain M54.40 Active 43569494 with sciatica, sciatica laterality unspecified Problem penitentiary current use of Z79.4 Active 720907502 insulin ALLERGIES No Information ENCOUNTERS Encounter Location Date Diagnosis [address] Aug, [place] [address] Jul, [place] [address] Jul, [place] [address] Jul, Plantar tendonitis M77.9 [place] [address] Type 2 diabetes mellitus without complications E11.[address] Jul, [place] [address] Jul, [place] [address] Jun, [place] [address] Jun, Encounter for screening [place] [address] and ear disorders Z13.[address] Jun, [place] [address] Jun, Type 2 [place] [address] without complications E11.9 ; Encounter for immunization Z23 and penitentiary current use of insulin Z79.[address] Jun, Type 2 diabetes mellitus [place] without complications E11.9 [address] May, [place] [address] May, [place] [address] Mar, [place] [address] [facility] Mar, [place] [address] [facility] [address] 18 Mar, 2019 [place] [address] Mar, [place] [address] Mar, Type 2 [place] [address] without complications E11.[address] Mar, Fatty liver K76.0 ; [place] [address] anterior shoulder pain M25.512 and Type 2 diabetes mellitus without complications E11.9 [facility] [address] [facility] Feb, Pain in left shoulder M25.512 [place] [address] [facility] [address] [facility] Feb, [place] [address] Feb, Type 2 [place] [address] without complication, without long-term current use of insulin E11.[address] Feb, Acute [place] [address] M25.512 and Type 2 diabetes mellitus without complication, without long-term current use of insulin E11.9 [place] [address] [place] Feb, Elevated liver enzymes R74.8 [place] [address] [facility] [address] [facility] Jan, [place] [address] [facility] [address] [facility] Jan, [place] [address] Jan, [place] [address] Jan, [place] [address] [facility] [address] [facility] Jan, [place] [address] [place] [address] [place] Dec, Type 2 [place] [address] without complication, without long-term current use of insulin E11.9 ; Screening for breast cancer Z12.31 and Primary insomnia F51.01 [place] [address] Dec, [place] [address] [place] [address] Dec, [place] [address] [place] [address] [place] Dec[place] [address] [place] [address] November, [place] [address] [place] [address] [place] November, [place] [address] [facility] [address] November, [place] [address] [place] [address] November, [place] [address] [place] [address] [place] November, Type 2 [place] [address] without complication, without long-term current use of insulin E11.9 [facility] [address] Oct, Type 2 [place] [address] without complication, without long-term current use of insulin E11.[address] Oct, Type 2 [place] [address] without complication, without long-term current use of insulin E11.9 ; Transaminitis R74.0 ; penitentiary current use of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 Z79.01 and Chest pain at rest R07.[address] Sep, Type 2 diabetes mellitus [place] without complications E11.9 [address] Aug, [place] [address] Aug, [place] [address] [place] [address] Aug, Type 2 diabetes mellitus [place] without complications E11.9 [address] Jul, Type 2 diabetes mellitus [place] without complications E11.9 [address] Jul, Bladder pain R39.89 ; Type 2 [place] [address] diabetes mellitus without complications E11.9 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.[address] Jul, Uncontrolled type 2 [place] [address] mellitus without complication, without long-term current use of insulin E11.[address] Jul, Type 2 [place] [address] without complication, without long-term current use of insulin E11.[address] Jul, [place] [address] Jul, [place] [address] Jul, Status [place] [address] bypass surgery Z95.[address] Jul, [place] [address] Jun, [place] [address] Jun, [place] [address] [facility] [address] [place] [address] Jun, [place] [address] [place] [address] Jun, [place] [address] [place] [address] Jun, [place] [address] [facility] [address] [facility] Jun, [place] [address] Migel Nguyen [address] Jun, [place] [address] [place] [address] May, [place] [address] [place] [address] [place] May, penitentiary [place] [address]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 Z79.01 [place] [address] [address] May, Bronchitis J40 ; [place] [address] maxillary sinusitis J01.00 ; Clotting disorder D68.9 and Type 2 diabetes mellitus without complication, without long-term current use of insulin E11.[address] May, [place] [address] Apr, [place] [address] [place] [address] Apr, [place] [address] [place] [address] [place] Apr, Clotting disorder D68.9 [place] [address] [place] [address] Apr, [place] [address] [place] [address] [place] Apr, [place] [address] [place] [address] [place] Apr, Type 2 [place] [address] without complication, without long-term current use of insulin E11.9 [place] [address] [place] Apr, [place] [address] [place] [address] Apr, [place] [address] [place] [address] Apr, [place] [address] [place] [address] Apr, Type 2 [place] [address] without complication, without long-term current use of insulin E11.9 [place] [address] Apr, [place] [address] Apr, [place] [address] Apr, [place] [address] Apr, [place] [address] Apr, [place] [address] Apr, Bilateral [place] [address] sciatica, sciatica laterality unspecified M54.40 ; Type 2 diabetes mellitus without complication, without long-term current use of insulin E11.9 ; Essential hypertension I10 ; Vision changes H53.9 ; Rash R21 ; Other obesity due to excess calories E66.09 ; Body mass index (BMI) of 37.0-37.9 in adult Z68.37 and Encounter for immunization Z23 [facility] [address] [facility] Apr, [place] [address] Mar, [place] [address] Mar, [place] [address] Mar, [place] [address] Mar, penitentiary current use [place]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 Z79.01 [address] [facility] Mar, [place] [address] Mar, [place] [address] I73.9 ; Left foot pain M79.672 ; Bilateral low back pain with sciatica, sciatica laterality unspecified M54.40 ; Other obesity due to excess calories E66.09 ; Body mass index (BMI) of 37.0-37.9 in adult Z68.37 ; penitentiary current use of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 Z79.01 and Elevated liver enzymes R74.[address] Mar, [place] [address] Mar, [place] [address] Mar, Peripheral vascular disease [place] I73.9 ; Left foot pain M79.672 [address] ; Swelling of left foot M79.89 and Type 2 diabetes mellitus without complication, without long-term current use of insulin E11.[address] Mar, [place] [address] Feb, [place] [address] Feb, [place] [address] [place] [address] [place] Feb, Type 2 [place] [address] without complication, without long-term current use of insulin E11.[address] Feb, [place] [address] Feb, [place] [address] Feb, [place] [address] Feb, Pain in right knee M25.561 [place] [address] Feb, [place] [address] Feb, [place] [address] Feb, [place] [address] Jan, [place] [address] Jan, [place] [address] [place] [address] [place] Jan, Type 2 [place] [address] without complication, without long-term current use of insulin E11.9 ; Acute pain of right knee M25.561 ; Bilateral low back pain with sciatica, sciatica laterality unspecified M54.40 ; Generalized abdominal tenderness R10.817 ; Other obesity due to excess calories E66.09 and Body mass index (BMI) of 37.0-37.9 in adult Z68.[address] Jan, [place] [address] Jan, [place] [address] [place] [address] [place] Jan, Rib pain on left side R07.81 [place] [address] [place] [address] Jan, [place] [address] [place] [address] Dec, [place] [address] [place] [address] [place], [place] [address] [facility] [address] Dec, [place] [address] [place] [address] [place], [place] [address] [facility] [address] [facility] Dec, [place] [address] [place] [address] [place] Dec, [facility] [place] [address] Dec, [place] [address] [place] [address] November, [facility] [place] [address] [place] [address] November, [place] [address] November, Type 2 [place] [address] without complication, without long-term current use of insulin E11.9 ; Left hip pain M25.552 and Anxiety F41.[address] November, [place] [address] [place] [address] November, [facility] [place] [address] [place] [address] [place] November, [place] [address] [facility] [address] [place] [address] November, [place] [address] November, [place] [address] [place] [address] [place] November, [place] [address] [place] [address] [place] November, Type 2 [place] [address] without complication, without long-term current use of insulin E11.9 [place] [address] [place] November, [place] [address] November, Health [place] [address] November, [facility] [place] [address] [place] [address] [place] November, [place] [address] Migel Nguyen [address] November, [facility] [place] [address] [place] [address] Oct, [facility] [place] [address] [place] [address] [place] Oct, Vaginal yeast infection B37.3 ; [place] [address] Stomach pain R10.9 ; Other obesity due to excess calories E66.09 and Body mass index (BMI) of 37.0-37.9 in adult Z68.37 [place] [address] [place] Oct, [place] [address] [place] [address] Oct, [place] [address] [place] [address] Oct, [facility] [place] [address] [place] [address] [place] Oct, [place] [address] [place] [address] Sep, [place] [address] [place] [address] [place] Sep, [place] [address] [place] [address] Sep, Right upper [place] [address] R10.11 [place] [address] Sep, [facility] [place] [address] [place] [address] [place] Sep, [place] [address] [place] [address] Sep, [place] [address] [place] [address] [place] Sep, Tenderness [place] [address] R19.8 and Right upper quadrant pain R10.[address] [place] [address] Sep, [place] [address] [place] [address] Sep, [place] [address] [place] [address] Sep, Type 2 [place] [address] without complication, without long-term current use of insulin E11.9 ; Clotting disorder D68.9 ; [employer] current use of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 Z79.01 ; Essential hypertension I10 ; Anxiety F41.9 ; Generalized abdominal pain R10.84 ; Paresthesia of skin R20.2 ; Anesthesia of skin R20.0 ; Obesity (BMI 30-39.9) E66.9 and BMI 36.0-36.9,adult Z68.[address] Sep, [place] [address] [place] [address] Sep, [place] [address] Sep, [facility] [place] [address] [place] [address] [place], [place] [address] [place] [address] Aug, [place] [address] [place] [address] [place] Aug, Type 2 [place] [address] without complication, without long-term current use of insulin E11.9 [place] [address] [place] Aug, [place] [address] [place] [address] [place] Aug, Anesthesia of skin R20.0 ; [place] [address] Elevated transaminase level R74.0 ; Lump in throat R22.1 and Type 2 diabetes mellitus without complication, without long-term current use of insulin E11.9 [place] [address] [place] Aug, [place] [address] [place] [address] [place] Aug, [place] [address] Aug, 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.[address] Aug, [place] [address] Aug, 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 [place] [address] [place] Aug, [place] [address] [place] [address] [place] Jul[place] [address] [place] [address] [place] Jul, [place] [address] [place] [address] [place] Jul, 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.00 and Lymphadenopathy R59.[address] Jul, [place] [address] [facility] [address] [facility] Jul, [place] [address] Jul, 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.[address] Jul, [place] [address] Jul, Uncontrolled type 2 [place] [address] mellitus without complication, without long-term current use of insulin E11.[address] Jul, [place] [address] Jun, [place] [address] Jun, [place] [address] Jun, [place] [address] Jun, [place] [address] Jun, [place] [address] Jun, Epigastric pain R10.13 ; Type 2 [place] [address] diabetes mellitus without complication, without long-term current use of insulin E11.9 ; Clotting disorder D68.9 ; Obesity (BMI 30-39.9) E66.9 ; BMI 35.0-35.9,adult Z68.35 and Colon cancer screening Z12.[address] Jun, [place] [address] [place] [address] Jun, [place] [address] [place] [address] Jun, [place] [address] Jun, [place] [address] May, Pure hypercholesterolemia E78.0 [place] [address] May, Rib pain on left side R07.81 ; [place] [address] Pneumonia of both lungs due to infectious organism, unspecified part of lung J18.9 ; Clotting disorder D68.9 ; penitentiary current use of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 Z79.01 ; Obesity (BMI 30-39.9) E66.9 and BMI 35.0-35.9,adult Z68.[address] May, Uncontrolled type 2 [place] [address] mellitus without complication, without long-term current use of insulin E11.[address] [place] May, [place] [address] May, Pneumonia of [place] [address] infectious organism, unspecified part of lung J18.[address] May, Pneumonia of [place] [address] infectious organism, unspecified part of lung J18.[address] May, Uncontrolled type 2 [place] [address] mellitus without complication, without long-term current use of insulin E11.[address] [place], [place] [address] May, [place] [address] May, Fatty liver K76.0 ; [place] [address] LFTs R79.89 ; Clotting disorder D68.9 ; Cigarette nicotine dependence without complication F17.210 ; Obesity (BMI 30-39.9) E66.9 and BMI 35.0-35.9,adult Z68.[address] [place] May, Uncontrolled [place] 2 [place] [address] mellitus without complication, without long-term current use of insulin E11.[address] May, [place] [address] Apr, [place] [address] Apr, Left upper quadrant pain R10.12 [place] [address] ; Transaminase or LDH elevation R74.0 ; Wheezing R06.2 and Cigarette nicotine dependence with nicotine-induced disorder F17.[address] Apr, Type 2 [place] [address] without complication, without long-term current use of insulin E11.9 [place] [address] Apr, [place] [address] [place] [address] [place] Apr, Uncontrolled type 2 [place] [address] mellitus without complication, without long-term current use of insulin E11.[address] Apr, [place] [address] Apr, Right [place] [address] [address]10[address] Apr, Right [place] [address] R10.31 ; Urinary frequency R35.0 and Essential hypertension I10 [address] Apr, [place] [address] Apr, [place] [address] Apr, [place] [address] [facility] [address] [facility] Apr, Health [place] [address] [place] [address] [place] Mar, [place] [address] [place] [address] Mar, [place] [address] [place] [address] [place] Mar, [place] [address] Mar, [place] [address] [place] [address] [place] Mar, Uncontrolled type 2 [place] [address] mellitus without complication, without long-term current use of insulin E11.65 and Screening for breast cancer Z12.[address] [place] [address] 18 Mar, 2017 [place] [address] [place] [address] 14 Mar, 2017 [place] [address] [place] Mar, Health [place] [address] [place] [address] Mar, [place] [address] [facility] [address] [facility] 09 Mar, 2017 Health Dental [place] [address] [place] [address] 08 Mar, 2017 Impaired fasting glucose R73.01 [place] [address] and Uncontrolled type 2 diabetes mellitus without complication, without long-term current use of insulin E11.65 [place] [address] [place] Mar, [place] [address] [place] [address] [place] Mar, [place] [address] [place] [address] [place] Mar, [place] [address] [place] [address] [place] Mar, [place] [address] [place] [address] [place] Feb[place] [address] [place] [address] [place] Feb[place] [address] [place] [address] [place] Feb, [place] [address] [place] [address] [place] Feb, Bruising T14.8 [place] [address] hypercholesterolemia E78.[address] Feb, [place] [address] [place] [address] [place] Feb, [place] [address] [place] [address] [place] Feb, [place] [address] [place] Feb, [place] [address] with nicotine-induced disorder F17.[address] Feb, [place] [address] [place] [address] [place] Feb, [place] [address] [address] [place] Feb, [place] [address] with nicotine-induced disorder F17.219 [place] [address] Jan, [facility] [place] [address] [place] [address] [place] Jan, [place] [address] [place] [address] [place] Jan, Tension headache G44.209 ; [place] [address] Bilateral low back pain with sciatica, sciatica laterality unspecified M54.40 ; Cigarette nicotine dependence with nicotine-induced disorder F17.219 ; Sprain of ribs, initial encounter S23.41XA ; Pure hypercholesterolemia E78.0 and Essential hypertension I10 [address] Jan, [place] [address] [place] [address] Jan, [place] [address] [place] [address] Jan, [place] [address] [place] [address] Jan[place] [address] [place] [address] [place] Dec, [place] [address] [place] [address] Dec, [place] [address] [place] [address] Dec[place] [address] [place] [place] [address] [place] Dec, [facility] [place] [place] [address] [place] [address] Dec, [place] [address] [place] [address] Dec, Tension headache G44.209 ; [place] [address] Clotting disorder D68.9 ; penitentiary current use of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 Z79.01 ; Cigarette nicotine dependence with nicotine-induced disorder F17.219 and Obesity (BMI 30-39.9) E66.[address] [place] [address] Dec, [place] [address] [place] [address] Dec, [place] [address] [place] [address] Dec, Bilateral [place] [address] sciatica, sciatica laterality unspecified M54.40 and Clotting disorder D68.9 [place] [address] [place] Dec, [place] [address] [place] [address] Dec, Clotting disorder D68.9 ; [place] [address] term current use of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 Z79.01 and Cigarette nicotine dependence with nicotine-induced disorder F17.219 [place] [address] Dec, [place] [address] [place] [address] Dec, [place] [address] [place] [address] [facility] Dec, Health [place] [address] [place] [address] November, [place] [address] [place] [address] November, [place] [address] [place] [address] November[place] [address] [place] [address] November, [place] [address] [place] [address] November, [place] [address] [place] [address] November[place] [address] [place] [address] November, [place] [address] [place] [address] November, [place] [address] [place] [address] November, [place] [address] [place] [address] November, [place] [address] [place] [address] November, [place] [address] [place] [address] November[place] [address] [place] [address] Oct, [place] [address] [place] [address] Oct, [place] [address] [place] [address] Oct, [place] [address] [place] [address] Oct, [place] [address] [place] [address] Oct, [place] [address] [place] [address] Oct, Other chest pain R07.89 ; Pain, [place] [address] arm, left M79.602 ; Posterior left knee pain M25.562 ; Essential hypertension I10 and Hypercholesteremia E78.00 [place] [address] Oct, [place] [address] [place] [address] Oct, Weakness of left arm R29.898 ; [place] [address] History of coagulopathy Z86.2 and Pain, arm, left M79.602 [place] [address] Oct, [place] [address] [place] [address] Oct, [place] [address] [place] [address] Sep, [place] [address] [place] [address] Sep, [place] [address] [place] [address] [place], [place] [address] [place] [address] 14 Sep, 2017 [place] [address] [place] [address] Sep, [place] [address] [place] [address] Sep, [place] [address] [place] [address] Sep, [place] [address] [place] [address] Sep, [place] [address] [place] [address] Aug, [place] [address] [place] [address] [place] [address] [place] [address] Aug, [employer] [place] [address]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 Z79.01 ; Cigarette nicotine dependence with nicotine-induced disorder F17.219 and Anxiety F41.9 [facility] [address] [facility] Aug, [place] [address] [place] [address] Aug, [place] [address] [place] [address] Aug, [place] [address] [place] [address] Aug, [place] [address] [place] [address] Aug, [place] [address] [place] [address] Aug, [place] [address] [place] [address] Aug[place] [address] [place] [address] Jul, penitentiary [place] [address]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 Z79.01 [place] [address] Jul, Tobacco abuse Z72.0 [place] [address] [place] [address] Jul, [place] [address] [place] [address] Jul, [place] [address] [place] [address] Jul, Abnormal [place] [address] R91.8 [place] [address] Jul, Pulmonary nodules R91.8 [place] [address] [place] [address] Jul, [place] [address] [place] [address] Jul, Tension headache G44.209 ; [place] [address] Bilateral low back pain with sciatica, sciatica laterality unspecified M54.40 ; Cigarette nicotine dependence with nicotine-induced disorder F17.219 ; Wheezing R06.2 and penitentiary current use of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 Z79.01 [place] [address] [place] Jul, [place] [address] [facility] [address] [facility] Jul, [place] [address] [facility] [address] [facility] Jun, [place] [address] [place] [address] [place] Jun, [place] [address] [place] [address] Jun, Chronic headache R51 [place] [address] [place] [address] Jun, [place] [address] [place] [address] [place] Jun, [place] [address] [place] [address] Jun, [place] [address] [place] [address] [place] Jun, [place] [address] [place] [address] [address] [place] Jun, [place] [address] [place] [address] [address] [place] Jun, Tension headache G44.209 [place] [address] [place] [address] May, [place] [address] [place] [address] [place] May, Clotting disorder D68.9 [place] [address] [place] [address] May, Tension headache G44.209 [place] [address] [place] [address] May, [place] [address] [place] [address] [address] [place] May, Encounter for immunization Z23 [place] [address] ; Tension headache G44.209 ; Clotting disorder D68.9 ; Essential hypertension I10 ; Cigarette nicotine dependence with nicotine-induced disorder F17.219 ; Pure hypercholesterolemia E78.0 and Hemorrhage from respiratory passages, unspecified R04.[address] [place] [address] May, [place] [address] [place] [address] May, Tension headache G44.209 [place] [address] [place] [address] May, [place] [address] [facility] [address] May, [place] [address] [facility] [address] May, [place] [address] [facility] [address] May, [place] [address] [facility] [address] May, [place] [address] [facility] [address] May, [place] [address] [place] [address] May, [place] [address] [place] [address] Apr, Clotting disorder D68.9 [place] [address] [facility] [address] [facility] Apr, [place] [address] [facility] [address] Apr, [place] [address] [place] [address] [place] [address] [place] [address] Apr, [place] [address] [place] [address] Apr, [place] [address] [place] [address] Apr, [place] [address] [place] [address] Apr, Clotting disorder D68.9 [place] [address] [employer] current use of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 Z79.01 [place] [address] Mar, [place] [address] [place] [address] Mar, [place] [address] [place] [address] Mar, Hypomagnesemia E83.42 [place] [address] Abdominal hernia K46.9 [place] [facility] [address] Mar, [place] [address] [place] [facility] [address] Mar, [place] [address] [place] [facility] [address] Mar, [place] [address] [place] [address] Feb[place] [address] [place] [address] [place] [address] [place] [address] Feb, [employer] [place] [address]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 Z79.01 [place] [address] [place] Feb, Contusion of lower leg, [place] [address] unspecified laterality, initial encounter S80.10XA and [employer] current use of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 Z79.[address] Feb, [place] [address] Feb, [place] [address] [place] [address] [place] Feb, [place] [address] [place] [address] [place] Feb, [place] [address] [place] [address] [place] Jan[place] [address] Jan, [place] [address] [place] [address] [place] Dec, [place] [address] [place] [address] [place] Dec, [place] [address] [place] [address] [place] Dec, C[place] [address] with nicotine-induced disorder F17.219 ; Seasonal allergies J30.2 ; Pain in right knee M25.561 and Pain in left knee M25.562 [place] [address] Dec, [place] [address] [place] [address] [place] Dec, [place] [address] Dec, [place] [address] [place] [address] November, [place] [address] November, [place] [address] November, [place] [address] [place] [address] Oct, [place] [address] [place] [address] [place] Oct, [place] [address] [place] [address] [place] Sep, [place] [address] [place] [address] [place], [place] [address] Sep, [place] [address] [place] [address] Aug, penitentiary [place] [address]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 Z79.01 ; Cigarette nicotine dependence with nicotine-induced disorder F17.219 ; Generalized abdominal tenderness R10.817 and Essential hypertension I10 [address] Aug, 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 ; Bilateral low back pain with sciatica, sciatica laterality unspecified M54.40 and Cigarette nicotine dependence with nicotine-induced disorder F17.[address] Aug, [place] [address] Aug, Essential hypertension I10 ; [place] [address] Acute nasopharyngitis J00 and Cigarette nicotine dependence with nicotine-induced disorder F17.[address] Aug, [place] [address] Aug, B[place] [address] sciatica, sciatica laterality unspecified M54.40 ; Cigarette nicotine dependence with nicotine-induced disorder F17.219 ; Pain in right leg M79.604 ; Pain of left leg M79.605 ; Clotting disorder D68.9 and Anxiety F41.[address] Jul, [address] Jul, [address] Jul, [place] [address] [place] [address] Jul, Pure hypercholesterolemia E78.0 [place] [address] Jul, Pain in right leg M79.604 ; [place] [address] Pain of left leg M79.605 ; Cigarette nicotine dependence with nicotine-induced disorder F17.219 ; Chronic fatigue R53.82 and Pure hypercholesterolemia E78.0 IMMUNIZATIONS No Known Immunizations SOCIAL HISTORY Never Assessed REASON FOR REFERRAL FUNCTIONAL STATUS PLAN OF CARE Activity Details Follow Up 3 weeks Reason:heel pain VITAL SIGNS Temperature 96.6 degrees Fahrenheit 2019-07-17 Heart Rate 20 2019-07-17 Weight 182.4 2019-07-17 Height 5' in 2019-07-17 BMI 35.62 kg/m2 2019-07-17 Oximetry 96 % 2019-07-17 Blood pressure systolic 133 mm Hg 2019-07-17 Blood pressure diastolic 78 mm Hg 2019-07-17 MEDICATIONS Medication Instructions Dosage Frequency Start End Duration Status Date Date Gillian Mena Subcutaneous qhs 55 units Jan, Active 100 UNIT/ML 2018 Atorvastatin Orally Once a 1 tablet 24h 30 Active Calcium 20 mg day Percocet 10-325 Orally every 6 1 tablet as 6h Active MG hrs needed Trulicity 1.5 Subcutaneous 1.5mg Apr, 05 December, Active MG/0.5ML weekly 2017 2019 Eliquis 2.5 MG Orally bid as directed 30 Active (start taking after INR >2.0) Complete Orally daily 1 cap(s) 24h Active Multi-Vitamin - BD Pen Needle External qhs as directed Jul, 90 days Active Short U/F 31G X 2018 8 MM Aspir-81 81 MG Orally Once a 1 tablet 24h Active day OneTouch Delica Device bid as directed 12h 27 May, days Active Lancets - 2017 FreeStyle Lite In Vitro bid for as directed Apr, days Active Test - e11.9 2018 Lancet Devices - Device BID or as as directed May, day(s) Active directed for 2018 E11.9 Omeprazole 40 mg Orally Once a 1 capsule 24h 30 Active day PROCEDURES Procedure Date Ordered Result Body Site [facility] visit, est patient Jul 17, 2019 BODY MASS INDEX DOCD Jul 17, 2019 SMOKING + 2ND HAND ASSESSED Jul 17, 2019 Oxygen saturation results documented and reviewed Jul 17, 2019 BLOOD PRESSURE, MEASURED Jul 17, 2019 RESULTS No Results REASON FOR VISIT *ankle/heel pain, PVP: Tobacco Smart Form. BMI and F/U (35.77). Zoster - BL, Has routine diabetic appointment on 09/02/2019. - BL Insurance Providers [facility] Health Member Patient Patient Patient Patient Patient Subscriber Subscriber Subscriber Group Insurance Plan Plan Plan Plan ID Relationship Address Phone Name Date of ID Name Date of No Type Insurance Insurance Insurance Coverage to Subscriber Address Phone Name Dates [facility] [phone] [facility] self Marii [id number] [facility] [address] [address] [facility] [place] [facility] [place] [facility] [address] Medical [facility] [address] [place] self [place] [id number] DOI Insurance [id number] Insurance [place] [id number] [facility] 0 [id number] Case [phone] Case self Marii [id number] Management [place] Management [facility] [address] Community Medicare National [id number] Medicare self Marii [id number] PPS Government 41 PPS [place] [facility] [address] [facility] [id number] Medicare National [id number] Medicare self Marii [id number] PPS QMB No Government 41 PPS QMB No [place] [employer] [employer] e [address] [facility] [id number] Medicaid [id number] Medicaid self Marii [id number] [facility] [address] [place] [address] MEDICAL (GENERAL) HISTORY Type Description Date Medical [...] with sciatica, sciatica laterality unspecified Medical History penitentiary current use of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 Medical History Hx of deep venous thrombosis Medical History penitentiary current use of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 Medical History Abdominal aorta thrombosis Surgical History Aortic Abdominal Bypass 2013 Surgical History Hysterectomy; ovaries and cervix removed as well 2001 Surgical History galbladder 2004 Surgical History sinus surgery Surgical History ear surgery with tubes Surgical History Bladder sling 2010 Surgical History both ears surgery with tubes 2019 Hospitalization History same as above
--- OUTSIDE RECORDS SUMMARY | 2019-07-30 08:23 | XMS REPORT ---
:1965 Author Organization [facility] Address [address] [place] [address] Care Team Providers Name Role Phone Austin Radford Unavailable Unavailable PROBLEMS Type Condition ICD9-CM CAR64-CH Onset Condition SNOMED Code Code Code Dates Status Problem Cubital tunnel syndrome, G56.22 Active 44820232 left Problem Bilateral carpal tunnel G56.03 Active 23588291 syndrome Problem Type 2 diabetes mellitus E11.9 Active 651118999 without complications Problem Diaphragmatic hernia K44.9 Active 06044132 without obstruction or gangrene Problem GERD (gastroesophageal K21.9 Active 513054477 reflux disease) Problem Pulmonary nodule R91.1 Active 373923553 Problem Essential hypertension I10 Active 31478287 Problem Peripheral vascular I73.9 Active 468361511 disease Problem Pure E78.0 Active 350069435 hypercholesterolemia Problem Fatty liver K76.0 Active 140486557 Problem Elevated transaminase R74.0 Active 182612292 level Problem Stage 1 chronic kidney N18.1 Active 814129506 disease Problem Anxiety F41.9 Active 72742907 Problem Primary insomnia F51.01 Active 5386313 Problem Tension headache G44.209 Active 097579941 Problem Status post Z95.828 Active 954441666 aortobifemoral bypass surgery Problem Other obesity due to E66.09 Active 253694955 excess calories Problem Body mass index (BMI) of Z68.37 Active 670440282 37.0-37.9 in adult Problem Bilateral low back pain M54.40 Active 32703972 with sciatica, sciatica laterality unspecified Problem 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 Z79.4 Active 031481153 insulin ALLERGIES No Information ENCOUNTERS Encounter Location Date Diagnosis [address] Aug, [place] [address] Jul, [place] [address] Jun, [place] [address] Jun, Encounter for screening [place] [address] and ear disorders Z13.[address] Jun, [place] [address] Jun, Type 2 [place] [address] without complications E11.9 ; Encounter for immunization Z23 and 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 insulin Z79.[address] Jun, Type 2 diabetes mellitus [place] without complications E11.9 [address] May, [place] [address] May, [place] [address] Mar, [place] [address] Mar, [place] [address] Mar, [place] [address] Mar, [place] [address] Mar, Type 2 [place] [address] without complications E11.[address] Mar, Fatty liver K76.0 ; [place] [address] anterior shoulder pain M25.512 and Type 2 diabetes mellitus without complications E11.[address] Feb, Pain in left shoulder M25.512 [place] [address] [place] [address] [facility] Feb, [place] [address] Feb, Type 2 [place] [address] without complication, without long-term current use of insulin E11.[address] Feb, Acute [place] [address] M25.512 and Type 2 diabetes mellitus without complication, without long-term current use of insulin E11.[address] Feb, Elevated liver enzymes R74.8 [place] [address] [facility] [address] [facility] Jan, [place] [address] [facility] [address] [facility] Jan, [place] [address] [place] [address] [address] [place] Jan, [place] [address] Jan[place] [address] [facility] [address] [facility] Jan, [place] [address] Dec, Type 2 [place] [address] without complication, without long-term current use of insulin E11.9 ; Screening for breast cancer Z12.31 and Primary insomnia F51.01 [place] [address] [address] [place] Dec, [place] [address] Dec, [place] [address] Dec, [place] [address] November, [place] [address] November, [place] [address] [place] [address] [facility] November, [place] [address] Migel Nguyen [address] November, [facility] [place] [address] November, Type 2 [place] [address] without complication, without long-term current use of insulin E11.9 [place] [address] [address] [place] Oct, Type 2 [place] [address] without complication, without long-term current use of insulin E11.[address] Oct, Type 2 [place] [address] without complication, without long-term current use of insulin E11.9 ; Transaminitis R74.0 ; 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 Z79.01 and Chest pain at rest R07.9 [facility] [address] [place] [address] Sep, Type 2 diabetes mellitus [place] without complications E11.9 [address] Aug, [place] [address] Aug, [place] [address] Aug, Type 2 diabetes mellitus [place] without complications E11.9 [address] Jul, Type 2 diabetes mellitus [place] without complications E11.9 [address] Jul, Bladder pain R39.89 ; Type 2 [place] [address] diabetes mellitus without complications E11.9 and long-term current use of insulin Z79.[address] Jul, Uncontrolled type 2 [place] [address] mellitus without complication, without long-term current use of insulin E11.[address] Jul, Type 2 [place] [address] without complication, without long-term current use of insulin E11.[address] Jul, [place] [address] Jul, [place] [address] Jul, Status post [place] [address] bypass surgery Z95.[address] Jul, [place] [address] [place] [address] [place], [place] [address] [facility] [address] [facility] Jun, [place] [address] [place] [address] Jun, [place] [address] [facility] [address] [place] Jun, [place] [address] [place] [address] [address] [place], [place] [address] [facility] [address] Jun, [place] [address] Jun[place] [address] [place] [address] [address] [place] May, [place] [address] [place] [address] [address] [place] May, long-[place] [address]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 Z79.01 [place] [address] [address] [place] May, Bronchitis J40 ; [place] [address] maxillary sinusitis J01.00 ; Clotting disorder D68.9 and Type 2 diabetes mellitus without complication, without long-term current use of insulin E11.[address] May, [place] [address] Apr, [place] [address] [place] [address] [address] [place] Apr, [place] [address] [place] [address] [place] Apr, Clotting disorder D68.9 [place] [address] [place] [address] [place] Apr, [place] [address] [place] [address] [place] Apr, [place] [address] [place] [address] [place] Apr, Type 2 [place] [address] without complication, without long-term current use of insulin E11.9 [place] [address] [place] Apr, [place] [address] [place] [address] [place] Apr[place] [address] [place] [address] [place] Apr, [place] [address] [place] [address] [place] 15 Apr, 2018 Type 2 [place] [address] without complication, without long-term current use of insulin E11.9 [place] [address] [place] Apr, [place] [address] [place] [address] [place] Apr, [place] [address] Apr, [place] [address] Apr, [place] [address] Apr, [place] [address] [place] [address] [address] [place] Apr, Bilateral [place] [address] sciatica, sciatica laterality unspecified M54.40 ; Type 2 diabetes mellitus without complication, without long-term current use of insulin E11.9 ; Essential hypertension I10 ; Vision changes H53.9 ; Rash R21 ; Other obesity due to excess calories E66.09 ; Body mass index (BMI) of 37.0-37.9 in adult Z68.37 and Encounter for immunization Z23 [facility] [address] [facility] Apr, [place] [address] Mar, [place] [address] Mar, [place] [address] Mar, [place] [address] Mar, 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 [facility] [place]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 Z79.01 [address] Mar, [place] [address] Mar, Peripheral [place] [address] I73.9 ; Left foot pain M79.672 ; Bilateral low back pain with sciatica, sciatica laterality unspecified M54.40 ; Other obesity due to excess calories E66.09 ; Body mass index (BMI) of 37.0-37.9 in adult Z68.37 ; 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 Z79.01 and Elevated liver enzymes R74.[address] Mar, [place] [address] Mar, [place] [address] Mar, Peripheral vascular disease [place] I73.9 ; Left foot pain M79.672 [address] ; Swelling of left foot M79.89 and Type 2 diabetes mellitus without complication, without long-term current use of insulin E11.[address] Mar, [place] [address] Feb, [place] [address] Feb, [place] [address] [place] [address] [address] [place] Feb, Type 2 [place] [address] without complication, without long-term current use of insulin E11.9 [facility] [address] [place] [address] Feb, [place] [address] [facility] [address] . [facility] Feb, [place] [address] [place] [address] [place] Feb, [place] [address] [facility] [address] . [facility] Feb, Pain in right knee M25.561 [place] [address] [facility] [address] [place] [address] Feb, [place] [address] Feb, [place] [address] Feb[place] [address] Jan, [place] [address] [place] [address] [place] Jan, [place] [address] [place] [address] [place] Jan, Type 2 [place] [address] without complication, without long-term current use of insulin E11.9 ; Acute pain of right knee M25.561 ; Bilateral low back pain with sciatica, sciatica laterality unspecified M54.40 ; Generalized abdominal tenderness R10.817 ; Other obesity due to excess calories E66.09 and Body mass index (BMI) of 37.0-37.9 in adult Z68.37 [place] [address] [place] Jan, [place] [address] Jan, [place] [address] [place] [address] Jan, Rib pain on left side R07.81 [place] [address] [place] [address] Jan, [place] [address] [place] [address] [place], [place] [address] [place] [address] [place] Dec, [place] [address] [place] [address] . [facility] Dec, [place] [address] [place] [address] [place], [place] [address] [facility] [address] [place] [address] Dec, [place] [address] [place] [address] [place] Dec, [facility] [place] [address] [place] [address] Dec, [place] [address] [place] November, [place] [address] [place] [address] November, [place] [address] [place] [address] [place] November, Type 2 [place] [address] without complication, without long-term current use of insulin E11.9 ; Left hip pain M25.552 and Anxiety F41.9 [place] [address] [place] November, [place] [address] [place] [address] November, [facility] [place] [address] [place] [address] [place] November, [place] [address] November, [place] [address] [place] [address] [place] November, [place] [address] [place] [address] [place] November, [place] [address] [place] [address] [place] November, Type 2 [place] [address] without complication, without long-term current use of insulin E11.9 [place] [address] [place] November, [place] [address] November, Health [place] [address] Migel Nguyen [address] November, [place] [address] [place] [address] [place] November, [place] [address] [place] November, [place] [address] [place] [address] Oct, [facility] [place] [address] [place] [address] [place] Oct, Vaginal yeast infection B37.3 ; [place] [address] Stomach pain R10.9 ; Other obesity due to excess calories E66.09 and Body mass index (BMI) of 37.0-37.9 in adult Z68.37 [place] [address] [address] [place] 17 Oct, 2017 Health [place] [address] [place] [address] [place] Oct, [place] [address] [place] [address] [address] [place] Oct, Health [place] [address] [place] [address] [place], [place] [address] [place] [address] [place] Sep, [place] [address] [place] [address] [place] Sep, [place] [address] [place] [address] [place] Sep, Right upper [place] [address] R10.11 [place] [address] [address] [facility] Sep, Health [place] [address] [place] [address] [place] Sep, [place] [address] [place] [address] [place] Sep, [place] [address] [place] [address] [place] Sep, Tenderness [place] [address] R19.8 and Right upper quadrant pain R10.11 [place] [address] [place] [address] [place] [address] [place] Sep, [place] [address] [place] [address] [place] Sep, Type 2 [place] [address] without complication, without long-term current use of insulin E11.9 ; Clotting disorder D68.9 ; 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 Z79.01 ; Essential hypertension I10 ; Anxiety F41.9 ; Generalized abdominal pain R10.84 ; Paresthesia of skin R20.2 ; Anesthesia of skin R20.0 ; Obesity (BMI 30-39.9) E66.9 and BMI 36.0-36.9,adult Z68.36 [place] [address] [place] 13 Sep, 2017 [facility] [place] [address] [place] [address] Sep, [place] [address] [place] [address] [address] [place] Sep, Health [place] [address] [place] [address] Sep, [place] [address] [place] [address] Aug, [place] [address] [place] [address] Aug, Type 2 [place] [address] without complication, without long-term current use of insulin E11.9 [place] [address] Aug, [place] [address] [place] [address] Aug, Anesthesia of skin R20.0 ; [place] [address] Elevated transaminase level R74.0 ; Lump in throat R22.1 and Type 2 diabetes mellitus without complication, without long-term current use of insulin E11.9 [place] [address] Aug, [place] [address] [place] [address] Aug, [place] [address] [place] [address] Aug, Raynaud''s [place] [address] gangrene I73.[address] Aug, [place] [address] Aug, Raynaud''s phenomenon [place] [address] gangrene I73.[address] Aug, [place] [address] [place] [address] Jul, [place] [address] [place] [address] Jul, [place] [address] [place] [address] Jul, Raynaud''s [place] [address] gangrene I73.00 and Lymphadenopathy R59.1 [facility] [address] [place] Jul, Health [place] [address] [facility] [address] Jul, [place], [place] [address] [place] [address] Jul, Raynaud''s [place] [address] gangrene I73.00 [place] [address] Jul, [place] [address] Jul, Uncontrolled type 2 [place] [address] mellitus without complication, without long-term current use of insulin E11.[address] Jul, [place] [address] Jun, [place] [address] Jun, [place] [address] Jun, [place] [address] Jun, [place] [address] [address] [place] Jun, [place] [address] Jun, Epigastric pain R10.13 ; Type 2 [place] [address] diabetes mellitus without complication, without long-term current use of insulin E11.9 ; Clotting disorder D68.9 ; Obesity (BMI 30-39.9) E66.9 ; BMI 35.0-35.9,adult Z68.35 and Colon cancer screening Z12.[address] Jun, [place] [address] [place] [address] Jun, [place] [address] [place] [address] Jun[place] [address] Jun, [place] [address] May, Pure hypercholesterolemia E78.0 [place] [address] May, Rib pain on left side R07.81 ; [place] [address] Pneumonia of both lungs due to infectious organism, unspecified part of lung J18.9 ; Clotting disorder D68.9 ; long-term current use of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 Z79.01 ; Obesity (BMI 30-39.9) E66.9 and BMI 35.0-35.9,adult Z68.[address] May, Uncontrolled type 2 [place] [address] mellitus without complication, without long-term current use of insulin E11.[address] [place] May, [place] [address] May, Pneumonia of both [place] [address] infectious organism, unspecified part of lung J18.[address] May, Pneumonia of both [place] [address] infectious organism, unspecified part of lung J18.[address] May, Uncontrolled type 2 diabetes [place] [address] mellitus without complication, without long-term current use of insulin E11.65 [place] [address] [address] [place] May, [place] [address] May, [place] [address] May, Fatty liver K76.0 ; [place] [address] LFTs R79.89 ; Clotting disorder D68.9 ; Cigarette nicotine dependence without complication F17.210 ; Obesity (BMI 30-39.9) E66.9 and BMI 35.0-35.9,adult Z68.[address] [place] May, Uncontrolled [place] [address] mellitus without complication, without long-term current use of insulin E11.[address] May, [facility] [address] Apr, [place] [address] Apr, Left upper quadrant pain R10.12 [place] [address] ; Transaminase or LDH elevation R74.0 ; Wheezing R06.2 and Cigarette nicotine dependence with nicotine-induced disorder F17.[address] Apr, Type 2 [place] [address] without complication, without long-term current use of insulin E11.[address] Apr, [place] [address] Apr, Uncontrolled type 2 [place] [address] mellitus without complication, without long-term current use of insulin E11.[address] Apr, [place] [address] [place] [address] [place] Apr, Right [place] [address] R10.31 [facility] [address] [place] Apr, Right [place] [address] R10.31 ; Urinary frequency R35.0 and Essential hypertension I10 [place] [address]. [facility] 16 Apr, 2017 [place] [address] [facility] [address] [place] Apr, [place] [address] [place] [address] [place] Apr, [place] [address] [facility] [address] [place] Apr, Health [place] [address] [facility] [address] 28 Mar, 2017 [place] [address] [facility] Mar, [place] [address] [place] [address] [place], [place] [address] [facility] Mar, [place] [address] [place] [address] Mar, Uncontrolled type 2 [place] [address] mellitus without complication, without long-term current use of insulin E11.65 and Screening for breast cancer Z12.31 [place] [address] 18 Mar, 2017 [place] [address] [place] [address] 14 Mar, 2017 [place] [address] [facility] [address] [place] 12 Mar, 2017 Health [place] [address] [place] [address] Mar, [place] [address] [facility] [address] [facility] 09 Mar, 2017 [place] [address] [place] [address] 08 Mar, 2017 Impaired fasting glucose R73.01 [place] [address] and Uncontrolled type 2 diabetes mellitus without complication, without long-term current use of insulin E11.65 [place] [address] Mar, [place] [address] [place] [address] Mar, [place] [address] [place] [address] Mar, [place] [address] [place] [address] Mar, [place] [address] [place] [address] Feb, [place] [address] [place] [address] Feb, [place] [address] [place] [address] [place] Feb, [place] [address] [place] [address] Feb, Bruising T14.8 [place] [address] hypercholesterolemia E78.[address] Feb, [place] [address] [place] [address] Feb, [place] [address] [place] [address] [place] Feb, Health [place] [address] [place] [address] [address] [place] Feb, Cigarette nicotine dependence Health [place] [address] with nicotine-induced disorder F17.[address] Feb, [place] [address] [place] [address] Feb, [place] [address] [place] [address] [address] [place] Feb, Cigarette nicotine dependence Health [place] [address] with nicotine-induced disorder F17.219 [place] [address] [address] [place] Jan, Health [place] [address] [place] [address] [place] Jan, [place] [address] [place] [address] [place] Jan, Tension headache G44.209 ; [place] [address] Bilateral low back pain with sciatica, sciatica laterality unspecified M54.40 ; Cigarette nicotine dependence with nicotine-induced disorder F17.219 ; Sprain of ribs, initial encounter S23.41XA ; Pure hypercholesterolemia E78.0 and Essential hypertension I10 [address] Jan, [place] [address] [place] [address] [place] Jan, [place] [address] [place] [address] [place] Jan, [place] [address] [place] [address] [place], [place] [address] [place] [address] [place] Dec, [facility] [place] [address] [place] [address] [place], [place] [address] [place] [address] Dec, [place] [address] [place] [address] [place] Dec, [facility] [place] [address] [place] [address] Dec, [place] [address] [place] [address] Dec, Tension headache G44.209 ; [place] [address] Clotting disorder D68.9 ; long-term current use of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 Z79.01 ; Cigarette nicotine dependence with nicotine-induced disorder F17.219 and Obesity (BMI 30-39.9) E66.9 [place] [address] Dec, [place] [address] [place] [address] Dec, [place] [address] [place] [address] Dec, Bilateral [place] [address] sciatica, sciatica laterality unspecified M54.40 and Clotting disorder D68.[address] [place] [address] Dec, [place] [address] [place] [address] Dec, Clotting disorder D68.9 ; [place] [address] term current use of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 Z79.01 and Cigarette nicotine dependence with nicotine-induced disorder F17.219 [place] [address] Dec, [place] [address] [place] [address] Dec, [place] [address] [place] [address] [place] Dec, [facility] [place] [address] [place] [address] November, [place] [address] [place] [address] November, [place] [address] [place] [address] November, [place] [address] [place] [address] November, [place] [address] [place] [address] November, [place] [address] [place] [address] November, [place] [address] [place] [address] November, [place] [address] [place] [address] November[place] [address] [place] [address] November, [place] [address] [place] [address] November, [place] [address] [place] [address] November, [place] [address] [place] [address] November, [place] [address] [place] [address] Oct, [place] [address] [place] [address] Oct, [place] [address] [place] [address] Oct, [place] [address] [place] [address] Oct, [place] [address] [place] [address] Oct, [place] [address] [place] [address] Oct, Other chest pain R07.89 ; Pain, [place] [address] arm, left M79.602 ; Posterior left knee pain M25.562 ; Essential hypertension I10 and Hypercholesteremia E78.00 [place] [address] Oct, [place] [address] [place] [address] Oct, Weakness of left arm R29.898 ; [place] [address] History of coagulopathy Z86.2 and Pain, arm, left M79.602 [place] [address] Oct, [place] [address] [place] [address] Oct, [place] [address] [place] [address] Sep, [place] [address] [place] [address] Sep, [place] [address] [place] [address] [place] [address] [place] [address] Sep, [place] [address] [place] [address] Sep, [place] [address] [place] [address] [place], [place] [address] [place] [address] Sep, [place] [address] [place] [address] Sep, [place] [address] [place] [address] [place], [place] [address] [place] [address] [place] Aug, [place] [address] [place] [address] [place] Aug, 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 [address]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 Z79.01 ; Cigarette nicotine dependence with nicotine-induced disorder F17.219 and Anxiety F41.[address] Aug, [place] [address] [place] [address] [place] Aug, [place] [address] [place] [address] [place] Aug, [place] [address] [place] [address] [place] Aug[place] [address] [place] [address] [place] Aug, [place] [address] [place] [address] [place] Aug, [place] [address] [place] [address] [place] Aug, [place] [address] [place] [address] [place] Jul, 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 [address]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 Z79.01 [place] [address] [place] Jul, Tobacco abuse Z72.0 [place] [address] [place] [address] [place] Jul, [place] [address] [place] [address] [place] Jul, [place] [address] [place] [address] [place] Jul, Abnormal [place] [address] R91.8 [place] [address] [place] Jul, Pulmonary nodules R91.8 [place] [address] [place] [address] [place] Jul, [place] [address] [place] [address] [place] Jul, Tension headache G44.209 ; [place] [address] Bilateral low back pain with sciatica, sciatica laterality unspecified M54.40 ; Cigarette nicotine dependence with nicotine-induced disorder F17.219 ; Wheezing R06.2 and 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 Z79.01 [place] [address] [place] Jul, [place] [address] [place], [place] [address] [place] [address] Jun, [place] [address] [place] [address] Jun, [place] [address] [place] [address] Jun, Chronic headache R51 [place] [address] [place] [address] Jun, [place] [address] [place] [address] [place] [address] [place] [address] Jun, [place] [address] [place] [address] Jun, [place] [address] [place] [address] Jun, [place] [address] [place] [address] Jun, Tension headache G44.209 [place] [address] [place] [address] May, [place] [address] [place] [address] May, Clotting disorder D68.9 [place] [address] [place] [address] May, Tension headache G44.209 [place] [address] [place] [address] May, [place] [address] [place] [address] May, Encounter for immunization Z23 [place] [address] ; Tension headache G44.209 ; Clotting disorder D68.9 ; Essential hypertension I10 ; Cigarette nicotine dependence with nicotine-induced disorder F17.219 ; Pure hypercholesterolemia E78.0 and Hemorrhage from respiratory passages, unspecified R04.9 [place] [address] May, [place] [address] [place] [address] May, Tension headache G44.209 [place] [address] [place] [address] May, [place] [address] [place] [address] May, [place] [address] [place] [address] May, [place] [address] [place] [address] May[place] [address] [place] [address] May, [place] [address] [facility] [place] [address] May, [place] [address] [place] [address] May, [place] [address] [place] [address] Apr, Clotting disorder D68.9 [place] [address] [facility] [address] [facility] Apr, [place] [address] [facility] [address] [facility] Apr, [place] [address] [place] [address] Apr, [place] [address] [place] [address] [place], [place] [address] [place] [address] Apr, [place] [address] [place] [address] Apr, [place] [address] [place] [address] Apr, Clotting disorder D68.9 [place] [address] long-term current use of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 Z79.01 [place] [address] Mar, [place] [address] [place] [address] Mar, [place] [address] [place] [address] Mar, Hypomagnesemia E83.42 [place] [address] Abdominal hernia K46.9 [place] [address] Mar, [place] [address] [place] [address] Mar, [place] [address] [place] [address] Mar, [place] [address] [place] [address] Feb[place] [address] [place] [address] Feb[place] [address] [place] [address] Feb, 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 Z79.01 [place] [address] [place] Feb, Contusion of lower leg, [place] [address] unspecified laterality, initial encounter S80.10XA and 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 Z79.01 [facility] [address] [facility] Feb, [place] [address] [place] [address] [facility] Feb, [place] [address] [place] [address] Feb, [place] [address] [place] [address] [place] Feb, [place] [address] [place] [address] Jan, [place] [address] Jan, [place] [address] [place] [address] Dec, [place] [address] [place] [address] [place] Dec, [place] [address] [place] [address] [place] Dec, Cig[place] [address] with nicotine-induced disorder F17.219 ; Seasonal allergies J30.2 ; Pain in right knee M25.561 and Pain in left knee M25.562 [place] [address] [place] Dec, [place] [address] [place] [address] [place] Dec, [place] [address] Dec, [place] [address] [place] [address] [place] November, [place] [address] November, [place] [address] November, [place] [address] [place] [address] [place] Oct[place] [address] [place] [address] [place] Oct[place] [address] [place] [address] [place] Sep, [place] [address] [place] [address] [place] Sep, [place] [address] Sep, [place] [address] [place] [address] Aug, 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 [address]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 Z79.01 ; Cigarette nicotine dependence with nicotine-induced disorder F17.219 ; Generalized abdominal tenderness R10.817 and Essential hypertension I10 [place] [address] [place] Aug, long-[place] [address]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 Z79.01 ; Bilateral low back pain with sciatica, sciatica laterality unspecified M54.40 and Cigarette nicotine dependence with nicotine-induced disorder F17.[address] Aug, [place] [address] Aug, Essential hypertension I10 ; [place] [address] Acute nasopharyngitis J00 and Cigarette nicotine dependence with nicotine-induced disorder F17.[address] Aug, [place] [address] Aug, Bilateral [place] [address] sciatica, sciatica laterality unspecified M54.40 ; Cigarette nicotine dependence with nicotine-induced disorder F17.219 ; Pain in right leg M79.604 ; Pain of left leg M79.605 ; Clotting disorder D68.9 and Anxiety F41.[address] Jul, [place] [address] Jul, [place] [address] Jul, [place] [address] Jul, Pure hypercholesterolemia E78.0 [place] [address] Jul, Pain in right leg M79.604 ; [place] [address] Pain of left leg M79.605 ; Cigarette nicotine dependence with nicotine-induced disorder F17.219 ; Chronic fatigue R53.82 and Pure hypercholesterolemia E78.0 IMMUNIZATIONS No Known Immunizations SOCIAL HISTORY Never Assessed REASON FOR REFERRAL FUNCTIONAL STATUS PLAN OF CARE VITAL SIGNS MEDICATIONS Unknown Medications PROCEDURES No Known procedures RESULTS No Results REASON FOR VISIT Test Results Insurance Providers [facility] Health Member Patient Patient Patient Patient Patient Subscriber Subscriber Subscriber Group Insurance Plan Plan Plan Plan ID Relationship Address Phone Name Date of ID Name Date of No Type Insurance Insurance Insurance Coverage to Subscriber Address Phone Name Dates Medicare National [id number] Medicare self Marii [id number] [facility] 41 PPS [place] [facility] [address] [facility] [id number] Medicaid [address] [phone] Medicaid self Marii [id number] [place] [address] [place] [address] [phone] Case self Marii [id number] Management [place] 02 Management [facility] [address] Community Medicare National [id number] Medicare self Marii [id number] PPS QMB No Government 41 PPS QMB No [place] [employer] [address] [place] [id number] [employer] [phone] Well[employer] self Marii [id number] [place] [id number] [place] P[place] [facility] [place] [facility] [address] Medical [place] [phone] [place] [id number] DOI Insurance [id number] Insurance [place] [id number] [facility] [id number] MEDICAL (GENERAL) HISTORY Type Description Date Medical [...] with sciatica, sciatica laterality unspecified Medical History 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
--- OUTSIDE RECORDS SUMMARY | 2019-07-30 08:23 | XMS REPORT ---
:1965 Author Organization [facility] Address [address] [place] [address] Care Team Providers Name Role Phone Austin Radford Unavailable Unavailable PROBLEMS Type Condition ICD9-CM [id number] Onset Condition SNOMED Code Code Code Dates Status Problem Cubital tunnel syndrome, G56.22 Active 28348024 left Problem Bilateral carpal tunnel G56.03 Active 09002417 syndrome Problem Type 2 diabetes mellitus E11.9 Active 483735228 without complications Problem Diaphragmatic hernia K44.9 Active 36747961 without obstruction or gangrene Problem GERD (gastroesophageal K21.9 Active 999531041 reflux disease) Problem Pulmonary nodule R91.1 Active 903990334 Problem Essential hypertension I10 Active 74895902 Problem Peripheral vascular I73.9 Active 435806980 disease Problem Pure E78.0 Active 866325472 hypercholesterolemia Problem Fatty liver K76.0 Active 678600521 Problem Elevated transaminase R74.0 Active 887331187 level Problem Stage 1 chronic kidney N18.1 Active 512388817 disease Problem Anxiety F41.9 Active 43394040 Problem Primary insomnia F51.01 Active 3139100 Problem Tension headache G44.209 Active 082172257 Problem Status post Z95.828 Active 455425822 aortobifemoral bypass surgery Problem Other obesity due to E66.09 Active 047833043 excess calories Problem Body mass index (BMI) of Z68.37 Active 835266878 37.0-37.9 in adult Problem Bilateral low back pain M54.40 Active 27449309 with sciatica, sciatica laterality unspecified Problem 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 Active 604730057 insulin ALLERGIES No Information ENCOUNTERS Encounter Location Date Diagnosis [address] Aug, [place] [address] Jul, [place] [address] Jul, [place] [address] Jul, Plantar tendonitis M77.9 [place] [address] Type 2 diabetes mellitus without complications E11.[address] Jul, [place] [address] Jul, [place] [address] Jun, [place] [address] Jun, Encounter for screening [place] [address] and ear disorders Z13.[address] Jun, [place] [address] Jun, Type 2 [place] [address] without complications E11.9 ; Encounter for immunization Z23 and [facility]CI current use of insulin Z79.[address] Jun, Type 2 diabetes mellitus [place] without complications E11.9 [address] May, [place] [address] May, [place] [address] Mar, [place] [address] [facility] Mar, [place] [address] [facility] 18 Mar, 2019 [place] [address] Mar, [place] [address] Mar, Type 2 [place] [address] without complications E11.[address] Mar, Fatty liver K76.0 ; [place] [address] anterior shoulder pain M25.512 and Type 2 diabetes mellitus without complications E11.9 [facility] [address] [facility] Feb, Pain in left shoulder M25.512 [place] [address] [facility] [address] [facility] Feb, [place] [address] Feb, Type 2 [place] [address] without complication, without long-term current use of insulin E11.[address] Feb, Acute pain [place] [address] M25.512 and Type 2 diabetes mellitus without complication, without long-term current use of insulin E11.9 [place] [address] [address] Feb, Elevated liver enzymes R74.8 [place] [address] [facility] [address] [facility] Jan, [place] [address] [facility] [address] [facility] Jan, [place] [address] Jan, [place] [address] Jan, [place] [address] [facility] [address] [facility] Jan, [place] [address] [place] [address] [address] Dec, Type 2 [place] [address] without complication, without long-term current use of insulin E11.9 ; Screening for breast cancer Z12.31 and Primary insomnia F51.01 [place] [address] Dec, [place] [address] [place] [address] Dec, [place] [address] [place] [address] Dec[place] [address] [place] [address] November, [place] [address] [place] [address] November[place] [address] [facility] [address] [facility] November, [place] [address] [place] [address] November, [place] [address] [place] [address] November, Type 2 [place] [address] without complication, without long-term current use of insulin E11.9 [facility] [address] Oct, Type 2 [place] [address] without complication, without long-term current use of insulin E11.[address] Oct, Type 2 [place] [address] without complication, without long-term current use of insulin E11.9 ; Transaminitis R74.0 ; 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 transportation 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.01 and Chest pain at rest R07.[address] Sep, Type 2 diabetes mellitus [place] without complications E11.9 [address] Aug, [place] [address] Aug, [place] [address] [place] [address] Aug, Type 2 diabetes mellitus [place] without complications E11.9 [address] Jul, Type 2 diabetes mellitus [place] without complications E11.9 [address] Jul, Bladder pain R39.89 ; Type 2 [place] [address] diabetes mellitus without complications E11.9 and ocean transportation intermediary current use of insulin Z79.[address] Jul, Uncontrolled type 2 [place] [address] mellitus without complication, without long-term current use of insulin E11.[address] Jul, Type 2 [place] [address] without complication, without long-term current use of insulin E11.[address] Jul, [place] [address] Jul, [place] [address] Jul, Status [place] [address] bypass surgery Z95.[address] Jul, [place] [address] Jun, [place] [address] Jun, [place] [address] [facility] [address] [place] [address] Jun, [place] [address] [place] [address] Jun, [place] [address] [place] [address] [place], [place] [address] [facility] [address] [facility] Jun, [place] [address] Migel Nguyen [address] Jun, [place] [address] [place] [address] May, [place] [address] [place] [address] May, [facility] [place] [address]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 Z79.01 [place] [address] [address] May, Bronchitis J40 ; [place] [address] maxillary sinusitis J01.00 ; Clotting disorder D68.9 and Type 2 diabetes mellitus without complication, without long-term current use of insulin E11.[address] May, [place] [address] Apr, [place] [address] [place] [address] Apr, [place] [address] [place] [address] Apr, Clotting disorder D68.9 [place] [address] [place] [address] Apr, [place] [address] [place] [address] Apr, [place] [address] [place] [address] Apr, Type 2 [place] [address] without complication, without long-term current use of insulin E11.9 [place] [address] Apr, [place] [address] [place] [address] Apr, [place] [address] [place] [address] Apr, [place] [address] [place] [address] Apr, Type 2 [place] [address] without complication, without long-term current use of insulin E11.9 [place] [address] Apr, [place] [address] Apr, [place] [address] Apr, [place] [address] Apr, [place] [address] Apr, [place] [address] Apr, Bilateral [place] [address] sciatica, sciatica laterality unspecified M54.40 ; Type 2 diabetes mellitus without complication, without long-term current use of insulin E11.9 ; Essential hypertension I10 ; Vision changes H53.9 ; Rash R21 ; Other obesity due to excess calories E66.09 ; Body mass index (BMI) of 37.0-37.9 in adult Z68.37 and Encounter for immunization Z23 [facility] [address] [facility] Apr, [place] [address] Mar, [place] [address] Mar, [place] [address] Mar, [place] [address] Mar, ocean transportation intermediary current use [place]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 Z79.01 [address] [facility] Mar, [place] [address] Mar, [place] [address] I73.9 ; Left foot pain M79.672 ; Bilateral low back pain with sciatica, sciatica laterality unspecified M54.40 ; Other obesity due to excess calories E66.09 ; Body mass index (BMI) of 37.0-37.9 in adult Z68.37 ; ocean transportation 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.01 and Elevated liver enzymes R74.[address] Mar, [place] [address] Mar, [place] [address] Mar, Peripheral vascular disease [place] I73.9 ; Left foot pain M79.672 [address] ; Swelling of left foot M79.89 and Type 2 diabetes mellitus without complication, without long-term current use of insulin E11.[address] Mar, [place] [address] Feb, [place] [address] Feb, [place] [address] [place] [address] Feb, Type 2 [place] [address] without complication, without long-term current use of insulin E11.[address] Feb, [place] [address] Feb, [place] [address] Feb, [place] [address] Feb, Pain in right knee M25.561 [place] [address] Feb, [place] [address] Feb, [place] [address] Feb, [place] [address] Jan, [place] [address] Jan, [place] [address] [place] [address] Jan, Type 2 [place] [address] without complication, without long-term current use of insulin E11.9 ; Acute pain of right knee M25.561 ; Bilateral low back pain with sciatica, sciatica laterality unspecified M54.40 ; Generalized abdominal tenderness R10.817 ; Other obesity due to excess calories E66.09 and Body mass index (BMI) of 37.0-37.9 in adult Z68.[address] Jan, [place] [address] Jan, [place] [address] [place] [address] Jan, Rib pain on left side R07.81 [place] [address] [place] [address] Jan, [place] [address] [place] [address] Dec, [place] [address] [place] [address] Dec, [place] [address] [facility] [address] Dec, [place] [address] [place] [address] Dec, [place] [address] [facility] [address] [facility] Dec, [place] [address] [place] [address] [address] [place] Dec, [place] [address] Dec, [place] [address] [place] [address] November, [facility] [place] [address] [place] [address] November, [place] [address] November, Type 2 [place] [address] without complication, without long-term current use of insulin E11.9 ; Left hip pain M25.552 and Anxiety F41.[address] November, [place] [address] Migel Nguyen [address] November, [facility] [place] [address] [place] [address] November, [place] [address] [facility] [address] [place] [address] November, [place] [address] [address] November, [place] [address] [place] [address] November, [place] [address] [place] [address] November, Type 2 [place] [address] without complication, without long-term current use of insulin E11.9 [place] [address] November, [place] [address] November, [facility] [place] [address] November, [facility] [place] [address] [place] [address] November, [place] [address] Migel Nguyen [address] November, [facility] [place] [address] [place] [address] Oct, [facility] [place] [address] [place] [address] Oct, Vaginal yeast infection B37.3 ; [place] [address] Stomach pain R10.9 ; Other obesity due to excess calories E66.09 and Body mass index (BMI) of 37.0-37.9 in adult Z68.37 [place] [address] Oct, [place] [address] [place] [address] Oct[place] [address] [place] [address] [address] [place] Oct, [place] [address] [place] [address] Oct, [place] [address] [place] [address] Sep, [place] [address] [place] [address] Sep, [place] [address] [place] [address] Sep, Right upper [place] [address] R10.11 [place] [address] [address] [place] Sep, [facility] [place] [address] [place] [address] Sep, [place] [address] [place] [address] Sep, [place] [address] [place] [address] Sep, Tenderness [place] [address] R19.8 and Right upper quadrant pain R10.11 [place] [address] Sep, [place] [address] [place] [address] Sep, [place] [address] [place] [address] Sep, Type 2 [place] [address] without complication, without long-term current use of insulin E11.9 ; Clotting disorder D68.9 ; ocean transportation 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.01 ; Essential hypertension I10 ; Anxiety F41.9 ; Generalized abdominal pain R10.84 ; Paresthesia of skin R20.2 ; Anesthesia of skin R20.0 ; Obesity (BMI 30-39.9) E66.9 and BMI 36.0-36.9,adult Z68.[address] Sep, [place] [address] [place] [address] Sep, [place] [address] Sep, [place] [address] [place] [address] Sep, [place] [address] [place] [address] Aug, [place] [address] [place] [address] Aug, Type 2 [place] [address] without complication, without long-term current use of insulin E11.9 [place] [address] Aug, [place] [address] [place] [address] Aug, Anesthesia of skin R20.0 ; [place] [address] Elevated transaminase level R74.0 ; Lump in throat R22.1 and Type 2 diabetes mellitus without complication, without long-term current use of insulin E11.9 [place] [address] Aug, [place] [address] [place] [address] Aug, [place] [address] Aug, Raynaud''s [place] [address] gangrene I73.[address] Aug, [place] [address] Aug, Raynaud''s phenomenon [place] [address] gangrene I73.00 [place] [address] Aug, [place] [address] [place] [address] Jul, [place] [address] [place] [address] Jul, [place] [address] [place] [address] Jul, Raynaud''s phenomenon [place] [address] gangrene I73.00 and Lymphadenopathy R59.[address] Jul, [place] [address] [facility] [address] [facility] Jul, [place] [address] Jul, Raynaud''s phenomenon [place] [address] gangrene I73.[address] Jul, [place] [address] Jul, Uncontrolled type 2 [place] [address] mellitus without complication, without long-term current use of insulin E11.[address] Jul, [place] [address] Jun, [place] [address] Jun, [place] [address] Jun, [place] [address] Jun, [place] [address] Jun, [place] [address] Jun, Epigastric pain R10.13 ; Type 2 [place] [address] diabetes mellitus without complication, without long-term current use of insulin E11.9 ; Clotting disorder D68.9 ; Obesity (BMI 30-39.9) E66.9 ; BMI 35.0-35.9,adult Z68.35 and Colon cancer screening Z12.[address] Jun, [place] [address] [place] [address] Jun, [place] [address] [place] [address] Jun, [place] [address] Jun, [place] [address] May, Pure hypercholesterolemia E78.0 [place] [address] May, Rib pain on left side R07.81 ; [place] [address] Pneumonia of both lungs due to infectious organism, unspecified part of lung J18.9 ; Clotting disorder D68.9 ; [facility] current use of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 Z79.01 ; Obesity (BMI 30-39.9) E66.9 and BMI 35.0-35.9,adult Z68.[address] May, Uncontrolled type 2 [place] [address] mellitus without complication, without long-term current use of insulin E11.[address] [place] May, [place] [address] May, Pneumonia of [place] [address] infectious organism, unspecified part of lung J18.[address] May, Pneumonia of [place] [address] infectious organism, unspecified part of lung J18.[address] May, Uncontrolled type 2 [place] [address] mellitus without complication, without long-term current use of insulin E11.[address] [place], [place] [address] May, [place] [address] May, Fatty liver K76.0 ; [place] [address] LFTs R79.89 ; Clotting disorder D68.9 ; Cigarette nicotine dependence without complication F17.210 ; Obesity (BMI 30-39.9) E66.9 and BMI 35.0-35.9,adult Z68.[address] [place] May, Uncontrolled [place] [address] mellitus without complication, without long-term current use of insulin E11.[address] May, [place] [address] Apr, [place] [address] Apr, Left upper quadrant pain R10.12 [place] [address] ; Transaminase or LDH elevation R74.0 ; Wheezing R06.2 and Cigarette nicotine dependence with nicotine-induced disorder F17.[address] Apr, Type 2 [place] [address] without complication, without long-term current use of insulin E11.9 [place] [address] Apr, [place] [address] [place] [address] Apr, Uncontrolled type 2 [place] [address] mellitus without complication, without long-term current use of insulin E11.[address] Apr, [place] [address] Apr, Right [place] [address] [address]10.[address] Apr, [place] [address] R10.31 ; Urinary frequency R35.0 and Essential hypertension I10 [address] Apr, [place] [address] Apr, [place] [address] Apr, [place] [address] [facility] [address] [facility] Apr, [facility] [place] [address] [place] [address] Mar, [place] [address] [place] [address] Mar, [place] [address] [place] [address] Mar, [place] [address] Mar, [place] [address] [place] [address] Mar, Uncontrolled type 2 [place] [address] mellitus without complication, without long-term current use of insulin E11.65 and Screening for breast cancer Z12.31 [place] [address] 18 Mar, 2017 [place] [address] [place] [address] 14 Mar, 2017 [place] [address] [place] Mar, [place] [address] [place] [address] Mar, [place] [address] [facility] 09 Mar, 2017 Health [facility] [place] [address] [place] [address] 08 Mar, 2017 Impaired fasting glucose R73.01 [place] [address] and Uncontrolled type 2 diabetes mellitus without complication, without long-term current use of insulin E11.65 [place] [address] Mar, [place] [address] [place] [address] Mar, [place] [address] [place] [address] Mar, [place] [address] [place] [address] Mar, [place] [address] [place] [address] Feb[place] [address] [place] [address] Feb, [place] [address] [place] [address] Feb, [place] [address] [place] [address] Feb, Bruising T14.8 [place] [address] hypercholesterolemia E78.[address] Feb, [place] [address] [place] [address] Feb, [place] [address] [place] [address] Feb, [place] [address] [place] Feb, [place] [address] with nicotine-induced disorder F17.[address] Feb, [place] [address] [place] [address] Feb, [place] [address] [place] Feb, [place] [address] with nicotine-induced disorder F17.219 [place] [address] [address] [place] Jan, [place] [address] [place] [address] Jan, [place] [address] [place] [address] Jan, Tension headache G44.209 ; [place] [address] Bilateral low back pain with sciatica, sciatica laterality unspecified M54.40 ; Cigarette nicotine dependence with nicotine-induced disorder F17.219 ; Sprain of ribs, initial encounter S23.41XA ; Pure hypercholesterolemia E78.0 and Essential hypertension I10 [address] Jan, [place] [address] [place] [address] Jan, [place] [address] [place] [address] Jan, [place] [address] [place] [address] Jan, [place] [address] [place] [address] [place] Dec, [facility] [place] [address] [place] [address] Dec, [place] [address] [place] [address] [place], [place] [address] [place] [address] [place] Dec, [facility] [place] [address] [place] [address] Dec, [place] [address] [place] [address] Dec, Tension headache G44.209 ; [place] [address] Clotting disorder D68.9 ; [facility] current use of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 Z79.01 ; Cigarette nicotine dependence with nicotine-induced disorder F17.219 and Obesity (BMI 30-39.9) E66.9 [place] [address] Dec, [place] [address] [place] [address] Dec, [place] [address] [place] [address] Dec, Bilateral [place] [address] sciatica, sciatica laterality unspecified M54.40 and Clotting disorder D68.9 [place] [address] Dec, [place] [address] [place] [address] Dec, Clotting disorder D68.9 ; [place] [address] term current use of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 Z79.01 and Cigarette nicotine dependence with nicotine-induced disorder F17.219 [place] [address] Dec, [place] [address] [place] [address] Dec, [place] [address] [place] [address] [facility] Dec, [facility] [place] [address] [place] [address] November, [place] [address] [place] [address] November, [place] [address] [place] [address] November, [place] [address] [place] [address] November, [place] [address] [place] [address] November, [place] [address] [place] [address] November, [place] [address] [place] [address] November, [place] [address] [place] [address] November, [place] [address] [place] [address] November, [place] [address] [place] [address] November, [place] [address] [place] [address] November, [place] [address] [place] [address] November[place] [address] [place] [address] Oct, [place] [address] [place] [address] Oct, [place] [address] [place] [address] Oct, [place] [address] [place] [address] Oct, [place] [address] [place] [address] Oct, [place] [address] [place] [address] Oct, Other chest pain R07.89 ; Pain, [place] [address] arm, left M79.602 ; Posterior left knee pain M25.562 ; Essential hypertension I10 and Hypercholesteremia E78.00 [place] [address] Oct, [place] [address] [place] [address] Oct, Weakness of left arm R29.898 ; [place] [address] History of coagulopathy Z86.2 and Pain, arm, left M79.602 [place] [address] Oct, [place] [address] [place] [address] Oct, [place] [address] [place] [address] Sep, [place] [address] [place] [address] Sep, [place] [address] [place] [address] Sep, [place] [address] [place] [address] 14 Sep, 2017 [place] [address] [place] [address] Sep, [place] [address] [place] [address] Sep[place] [address] [place] [address] Sep, [place] [address] [place] [address] Sep[place] [address] [place] [address] Aug, [place] [address] [place] [address] Aug, [place] [address] [place] [address] Aug, ocean transportation intermediary [place] [address]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 Z79.01 ; Cigarette nicotine dependence with nicotine-induced disorder F17.219 and Anxiety F41.9 [facility] [address] [facility] Aug, [place] [address] [place] [address] Aug, [place] [address] [place] [address] Aug, [place] [address] [place] [address] Aug, [place] [address] [place] [address] Aug, [place] [address] [place] [address] Aug, [place] [address] [place] [address] Aug, [place] [address] [place] [address] Jul, [facility] [place] [address]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 Z79.01 [place] [address] Jul, Tobacco abuse Z72.0 [place] [address] [place] [address] Jul, [place] [address] [place] [address] Jul, [place] [address] [place] [address] Jul, Abnormal [place] [address] R91.8 [place] [address] Jul, Pulmonary nodules R91.8 [place] [address] [place] [address] Jul, [place] [address] [place] [address] Jul, Tension headache G44.209 ; [place] [address] Bilateral low back pain with sciatica, sciatica laterality unspecified M54.40 ; Cigarette nicotine dependence with nicotine-induced disorder F17.219 ; Wheezing R06.2 and ocean transportation 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.01 [place] [address] Jul, [place] [address] [facility] [address] [facility] Jul, [place] [address] [facility] [address] [facility] Jun, [place] [address] [place] [address] Jun, [place] [address] [place] [address] Jun, Chronic headache R51 [place] [address] [place] [address] Jun, [place] [address] [place] [address] Jun, [place] [address] [place] [address] Jun, [place] [address] [place] [address] [place] Jun, [place] [address] [place] [address] [address] [place] Jun, [place] [address] [place] [address] [address] [place] Jun, Tension headache G44.209 [place] [address] [place] [address] May, [place] [address] [place] [address] May, Clotting disorder D68.9 [place] [address] [place] [address] May, Tension headache G44.209 [place] [address] [place] [address] May, [place] [address] [place] [address] [address] [place] May, Encounter for immunization Z23 [place] [address] ; Tension headache G44.209 ; Clotting disorder D68.9 ; Essential hypertension I10 ; Cigarette nicotine dependence with nicotine-induced disorder F17.219 ; Pure hypercholesterolemia E78.0 and Hemorrhage from respiratory passages, unspecified R04.9 [place] [address] May, [place] [address] [place] [address] May, Tension headache G44.209 [place] [address] [place] [address] May, [place] [address] [place] [facility] [address] May, [place] [address] [place] [facility] [address] May, [place] [address] [place] [facility] [address] May, [place] [address] [facility] [address] May, [place] [address] [facility] [address] May, [place] [address] [place] [facility] [address] May, [place] [address] [place] [address] Apr, Clotting disorder D68.9 [place] [address] [facility] [address] [facility] Apr, [place] [address] [facility] [address] Apr, [place] [address] [place] [address] Apr, [place] [address] [place] [address] Apr, [place] [address] [place] [address] Apr, [place] [address] [place] [address] Apr, [place] [address] [place] [address] Apr, Clotting disorder D68.9 [place] [address] ocean transportation 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.01 [place] [address] Mar, [place] [address] [place] [address] Mar, [place] [address] [place] [address] Mar, Hypomagnesemia E83.42 [place] [address] Abdominal hernia K46.9 [place] [facility] [address] Mar, [place] [address] [place] [facility] [address] Mar, [place] [address] [place] [facility] [address] Mar, [place] [address] [place] [address] Feb, [place] [address] [place] [address] Feb, [place] [address] [place] [address] Feb, ocean transportation intermediary [place] [address]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 Z79.01 [place] [id number] [place] Feb, Contusion of lower leg, [facility] [place] [address] unspecified laterality, initial encounter S80.10XA and ocean transportation 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.[address] Feb, [place] [address] Feb, [place] [address] [place] [address] Feb, [place] [address] [place] [address] [place] Feb, [place] [address] [place] [address] [place] Jan[place] [address] Jan, [place] [address] [place] [address] Dec, [place] [address] [place] [address] Dec, [place] [address] [place] [address] Dec, [place] [address] with nicotine-induced disorder F17.219 ; Seasonal allergies J30.2 ; Pain in right knee M25.561 and Pain in left knee M25.562 [place] [address] Dec, [place] [address] [place] [address] Dec, [place] [address] Dec, [place] [address] [place] [address] November, [place] [address] November, [place] [address] November, [place] [address] [place] [address] Oct, [place] [address] [place] [address] Oct, [place] [address] [place] [address] Sep, [place] [address] [place] [address] Sep, [place] [address] Sep, [place] [address] [place] [address] Aug, [facility] [address]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 Z79.01 ; Cigarette nicotine dependence with nicotine-induced disorder F17.219 ; Generalized abdominal tenderness R10.817 and Essential hypertension I10 [address] Aug, 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[address]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 Z79.01 ; Bilateral low back pain with sciatica, sciatica laterality unspecified M54.40 and Cigarette nicotine dependence with nicotine-induced disorder F17.[address] Aug, [place] [address] Aug, Essential hypertension I10 ; [place] [address] Acute nasopharyngitis J00 and Cigarette nicotine dependence with nicotine-induced disorder F17.[address] Aug, [place] [address] Aug, Bilateral [place] [address] sciatica, sciatica laterality unspecified M54.40 ; Cigarette nicotine dependence with nicotine-induced disorder F17.219 ; Pain in right leg M79.604 ; Pain of left leg M79.605 ; Clotting disorder D68.9 and Anxiety F41.[address] Jul, [place] [id number] Jul, [place] [id number] Jul, [place] [address] Jul, Pure hypercholesterolemia E78.0 [place] [address] Jul, Pain in right leg M79.604 ; [place] [address] Pain of left leg M79.605 ; Cigarette nicotine dependence with nicotine-induced disorder F17.219 ; Chronic fatigue R53.82 and Pure hypercholesterolemia E78.0 IMMUNIZATIONS No Known Immunizations SOCIAL HISTORY Never Assessed REASON FOR REFERRAL FUNCTIONAL STATUS PLAN OF CARE VITAL SIGNS MEDICATIONS Unknown Medications PROCEDURES No Known procedures RESULTS No Results REASON FOR VISIT Acute Triage Insurance Providers [facility] Member Patient Patient Patient Patient Patient Subscriber Subscriber Subscriber Group Insurance Plan Plan Plan Plan ID Relationship Address Phone Name Date of ID Name Date of No Type Insurance Insurance Insurance Coverage to Subscriber Address Phone Name Dates [place] [phone] [place] [id number] [place] Insurance [id number] Insurance [place] 9 [id number] [facility] 0 [id number] Case [phone] Case self Marii [id number] Management [place] 02 Management [facility] [address] Community Medicare National [id number] Medicare self Marii [id number] PPS QMB No Government 41 PPS QMB No [place] [employer] [address] [place] [id number] Medicaid [id number] Medicaid self Marii [id number] [facility] [address] [place] [address] WellCare [phone] WellCare self Marii [id number] Of [facility] [id number] Of [facility] [place] [facility] [facility] [id number] Medical Medicare National [id number] Medicare self Mari[place] [id number] PPS Government 41 PPS [place] Services [address] [place] [id number] MEDICAL (GENERAL) HISTORY Type Description Date Medical [...] with sciatica, sciatica laterality unspecified Medical History [facility] current use of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 Medical History Hx of deep venous thrombosis Medical History [facility] current use of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
--- OUTSIDE RECORDS SUMMARY | 2019-07-30 08:23 | XMS REPORT ---
:1965 Author Organization [facility] Address [address] [place] [address] Care Team Providers Name Role Phone Austin Radford Unavailable Unavailable PROBLEMS Type Condition ICD9-CM [id number] Onset Condition SNOMED Code Code Code Dates Status Problem Cubital tunnel syndrome, G56.22 Active 11014954 left Problem Bilateral carpal tunnel G56.03 Active 76461431 syndrome Problem Type 2 diabetes mellitus E11.9 Active 037835802 without complications Problem Diaphragmatic hernia K44.9 Active 00699231 without obstruction or gangrene Problem GERD (gastroesophageal K21.9 Active 731547207 reflux disease) Problem Pulmonary nodule R91.1 Active 534376259 Problem Essential hypertension I10 Active 37669450 Problem Peripheral vascular I73.9 Active 694045584 disease Problem Pure E78.0 Active 658531524 hypercholesterolemia Problem Fatty liver K76.0 Active 614150863 Problem Elevated transaminase R74.0 Active 765290507 level Problem Stage 1 chronic kidney N18.1 Active 154133543 disease Problem Anxiety F41.9 Active 15009938 Problem Primary insomnia F51.01 Active 5144989 Problem Tension headache G44.209 Active 432260243 Problem Status post Z95.828 Active 320831374 aortobifemoral bypass surgery Problem Other obesity due to E66.09 Active 261448535 excess calories Problem Body mass index (BMI) of Z68.37 Active 458818587 37.0-37.9 in adult Problem Bilateral low back pain M54.40 Active 40460965 with sciatica, sciatica laterality unspecified 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 075511096 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 ALLERGIES No Information ENCOUNTERS Encounter Location Date Diagnosis [address] Aug, [place] [address] Jun, [place] [address] Jun, Encounter [place] [address] and ear disorders Z13.[address] Jun, [place] [address] Jun, Type 2 [place] [address] without complications E11.9 ; Encounter for immunization Z23 and group home current use of insulin Z79.[address] Jun, Type 2 diabetes mellitus [place] without complications E11.9 [address] May, [place] [address] May, [place] [address] Mar, [place] [address] [facility] Mar, [place] [address] Mar, [place] [address] Mar, [place] [address] Mar, Type [address] [facility] [place] [address] without complications E11.[address] Mar, Fatty liver K76.0 ; [place] [address] anterior shoulder pain M25.512 and Type 2 diabetes mellitus without complications E11.[address] Feb, Pain in left shoulder M25.512 [place] [address] Feb, [place] [address] Feb, Type 2 [place] [address] without complication, without long-term current use of insulin E11.[address] Feb, Acute pain [place] [address] M25.512 and Type 2 diabetes mellitus without complication, without long-term current use of insulin E11.[address] Feb, Elevated liver enzymes R74.8 [place] [address] Jan, [place] [address] Jan, [place] [address] [place] [address] Jan, [place] [address] [place] [address] Jan, [place] [address] Jan, [place] [address] [place] [address] [place] Dec, Type 2 [place] [address] without complication, without long-term current use of insulin E11.9 ; Screening for breast cancer Z12.31 and Primary insomnia F51.[address] Dec, [place] [address] Dec, [place] [address] Dec, [place] [address] November, [place] [address] November, [place] [address] November, [place] [address] November, [place] [address] November, Type 2 [place] [address] without complication, without long-term current use of insulin E11.9 [place] [address] Oct, Type 2 [place] [address] without complication, without long-term current use of insulin E11.[address] Oct, Type 2 [place] [address] without complication, without long-term current use of insulin E11.9 ; Transaminitis R74.0 ; lobsterman 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 [facility] Aug, [place] [address] [facility] [address] [place] [address] Aug, [place] [address] [facility] [address] [place] [address] Aug, Type 2 diabetes mellitus [place] without complications E11.9 [address] Jul, Type 2 diabetes mellitus [place] without complications E11.9 [address] Jul, Bladder pain R39.89 ; Type 2 [place] [address] diabetes mellitus without complications E11.9 and group home current use of insulin Z79.[address] Jul, Type 2 [place] [address] without complication, without long-term current use of insulin E11.[address] Jul, Uncontrolled type 2 [place] [address] mellitus without complication, without long-term current use of insulin E11.65 [place] 381903 [facility] Jul, [place] [address] [facility] [address] [place] [address] Jul, [place] [address] Jul, Status post [place] [address] bypass surgery Z95.[address] Jul, [place] [address] [place], [place] [address] [facility] [address] [facility] Jun, [place] [address] [place] [facility] [address] [facility] Jun, [place] [address] [place] [address] Jun, [place] [address] [place], [place] [address] [facility] [address] [facility] Jun, [place] [address] Migel Nguyen [address] Jun, [place] [address] [place] [address] May, [place] [address] [place] [address] May, lobsterman [place] [address]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 Z79.01 [place] [address] [address] May, Bronchitis J40 ; [place] [address] maxillary sinusitis J01.00 ; Clotting disorder D68.9 and Type 2 diabetes mellitus without complication, without long-term current use of insulin E11.[address] May, [place] [address] Apr, [place] [address] [place] [address] Apr, [place] [address] [place] [address] Apr, Clotting disorder D68.9 [place] [address] [place] [address] Apr, [place] [address] [place] [address] Apr, [place] [address] [place] [address] [place] Apr, Type 2 [place] [address] without complication, without long-term current use of insulin E11.9 [place] [address] Apr, [place] [address] [place] [address] Apr, [place] [address] [place] [address] Apr, [place] [address] [place] [address] Apr, Type 2 [place] [address] without complication, without long-term current use of insulin E11.9 [place] [address] Apr, [place] [address] [place] [address] Apr, [place] [address] Apr, [place] [address] Apr, [place] [address] Apr, [place] [address] [place] [address] [place] Apr, Bilateral [place] [address] sciatica, sciatica laterality unspecified M54.40 ; Type 2 diabetes mellitus without complication, without long-term current use of insulin E11.9 ; Essential hypertension I10 ; Vision changes H53.9 ; Rash R21 ; Other obesity due to excess calories E66.09 ; Body mass index (BMI) of 37.0-37.9 in adult Z68.37 and Encounter for immunization Z23 [facility] [address] [facility] Apr, [place] [address] [place] [id number] [facility] Mar, [place] [address] Mar, [place] [address] Mar, [place] [address] Mar, group home current use of [facility] [place]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 Z79.01 [address] Mar, [place] [address] Mar, Peripheral [place] [address] I73.9 ; Left foot pain M79.672 ; Bilateral low back pain with sciatica, sciatica laterality unspecified M54.40 ; Other obesity due to excess calories E66.09 ; Body mass index (BMI) of 37.0-37.9 in adult Z68.37 ; group home current use of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 Z79.01 and Elevated liver enzymes R74.[address] Mar, [place] [address] Mar, [place] [address] Mar, Peripheral vascular disease [place] I73.9 ; Left foot pain M79.672 [address] ; Swelling of left foot M79.89 and Type 2 diabetes mellitus without complication, without long-term current use of insulin E11.[address] Mar, [place] [address] [place] [address] Feb, [place] [address] Feb, [place] [address] Feb, Type 2 [place] [address] without complication, without long-term current use of insulin E11.9 [facility] [address] [place] [address] Feb, [place] [address] [place] [address]1903 . [facility] Feb, [place] [address] Feb, [place] [address] [place] [address]1903 . [facility] Feb, Pain in right knee M25.561 [place] [address] [facility] [address] [place] [address] Feb, [place] [address] [facility] [address] [place] [address] Feb, [place] [address] Feb, [place] [address] Jan, [place] [address] [place] [address] Jan, [place] [address] [place] [address] Jan, Type 2 [place] [address] without complication, without long-term current use of insulin E11.9 ; Acute pain of right knee M25.561 ; Bilateral low back pain with sciatica, sciatica laterality unspecified M54.40 ; Generalized abdominal tenderness R10.817 ; Other obesity due to excess calories E66.09 and Body mass index (BMI) of 37.0-37.9 in adult Z68.37 [place] [address] Jan, [place] [address] Jan, [place] [address] [place] [address] Jan, Rib pain on left side R07.81 [place] [address] [place] [address] Jan, [place] [address] [place] [address] Dec, [place] [address] [place] [address] [place] [address] [facility] 513 . [facility] Dec, [place] [address] [place] [address] [place], [place] [address] Dec, [place] [address] [facility] [address] [facility] [facility] Dec, Health [place] [address] [place] [address] [place] Dec, [place] [address] Migel Nguyen [address] November, [facility] [place] [address] [place] [address] November, [place] [address] [place] [address] November, Type 2 [place] [address] without complication, without long-term current use of insulin E11.9 ; Left hip pain M25.552 and Anxiety F41.9 [place] [address] November, [place] [address] Migel Nguyen [address] November, [facility] [place] [address] [place] [address] November, [place] [address] November, [place] [address] November, [place] [address] November, [place] [address] November, Type [address] [facility] [place] [address] without complication, without long-term current use of insulin E11.[address] November, [place] [address] November, Health [place] [address] [place] [address] November, [facility] [place] [address] [place] [address] November, [place] [address] November, [facility] [place] [address] Oct, [facility] [place] [address] [place] [address] [place] Oct, Vaginal yeast infection B37.3 ; [place] [address] Stomach pain R10.9 ; Other obesity due to excess calories E66.09 and Body mass index (BMI) of 37.0-37.9 in adult Z68.37 [place] [address] [place] [address] Oct, 2017 [place] [address] [place] [address] Oct, [place] [address] [place] [address] [place] Oct, [place] [address] [place] [address] [place], [place] [address] [place] [address] Sep, [place] [address] [place] [address] Sep, [place] [address] [place] [address] Sep, Right upper [place] [address] R10.11 [place] [address] [place] Sep, [place] [address] [place] [address] Sep, [place] [address] [place] [address] Sep, [place] [address] [place] [address] [place] Sep, Tenderness [place] [address] R19.8 and Right upper quadrant pain R10.11 [place] [address] Sep, [place] [address] [place] [address] Sep, [place] [address] [place] [address] [place] Sep, Type 2 [place] [address] without complication, without long-term current use of insulin E11.9 ; Clotting disorder D68.9 ; lobsterman current use of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 Z79.01 ; Essential hypertension I10 ; Anxiety F41.9 ; Generalized abdominal pain R10.84 ; Paresthesia of skin R20.2 ; Anesthesia of skin R20.0 ; Obesity (BMI 30-39.9) E66.9 and BMI 36.0-36.9,adult Z68.36 [place] [address] Sep, [facility] [place] [address] [place] [address] Sep, [place] [address] [place] [address] [place] Sep, Health [place] [address] [place] [address] Sep, [place] [address] [place] [address] Aug, [place] [address] [place] [address] Aug, Type 2 [place] [address] without complication, without long-term current use of insulin E11.9 [place] [address] Aug, [place] [address] [place] [address] Aug, Anesthesia of skin R20.0 ; [place] [address] Elevated transaminase level R74.0 ; Lump in throat R22.1 and Type 2 diabetes mellitus without complication, without long-term current use of insulin E11.9 [place] [address] Aug, [place] [address] [place] [address] Aug, [place] [address] [place] [address] Aug, Raynaud''s [place] [address] gangrene I73.[address] Aug, [place] [address] Aug, Raynaud''s [place] [address] gangrene I73.00 [place] [address] Aug, [place] [address] [place] [address] Jul, [place] [address] [place] [address] Jul, [place] [address] [place] [address] [place] Jul, Raynaud''s [place] [address] gangrene I73.00 and Lymphadenopathy R59.1 [facility] [address] Jul, [place] [address] [facility] [address] [facility] [address] Jul, [place] [address] [place] [address] Jul, Raynaud''s [place] [address] gangrene I73.00 [place] [address] Jul, [place] [address] [place] [address] Jul, Uncontrolled type 2 [place] [address] mellitus without complication, without long-term current use of insulin E11.[address] Jul, [place] [address] Jun, [place] [address] Jun, [place] [address] Jun, [place] [address] Jun, [place] [address] Jun, [place] [address] Jun, Epigastric pain R10.13 ; Type 2 [place] [address] diabetes mellitus without complication, without long-term current use of insulin E11.9 ; Clotting disorder D68.9 ; Obesity (BMI 30-39.9) E66.9 ; BMI 35.0-35.9,adult Z68.35 and Colon cancer screening Z12.[address] Jun, [place] [address] Jun, [place] [address] [place] [address] Jun, [place] [address] Jun, [place] [address] May, Pure hypercholesterolemia E78.0 [place] [address] May, Rib pain on left side R07.81 ; [place] [address] Pneumonia of both lungs due to infectious organism, unspecified part of lung J18.9 ; Clotting disorder D68.9 ; lobsterman current use of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 Z79.01 ; Obesity (BMI 30-39.9) E66.9 and BMI 35.0-35.9,adult Z68.[address] May, Uncontrolled type 2 [place] [address] mellitus without complication, without long-term current use of insulin E11.[address] May, [place] [address] May, Pneumonia of both [place] [address] infectious organism, unspecified part of lung J18.[address] May, Pneumonia of both [place] [address] infectious organism, unspecified part of lung J18.[address] May, Uncontrolled type 2 [place] [address] mellitus without complication, without long-term current use of insulin E11.65 [place] [address] [place] May, [place] [address] May, [place] [address] May, Fatty liver K76.0 ; [place] [address] LFTs R79.89 ; Clotting disorder D68.9 ; Cigarette nicotine dependence without complication F17.210 ; Obesity (BMI 30-39.9) E66.9 and BMI 35.0-35.9,adult Z68.[address] [place] May, Uncontrolled [place] [address] mellitus without complication, without long-term current use of insulin E11.[address] May, [place] [address] Apr, [place] [address] Apr, Left upper quadrant pain R10.12 [place] [address] ; Transaminase or LDH elevation R74.0 ; Wheezing R06.2 and Cigarette nicotine dependence with nicotine-induced disorder F17.[address] Apr, Type 2 [place] [address] without complication, without long-term current use of insulin E11.[address] Apr, [place] [address] Apr, Uncontrolled type [address] [facility] [address] mellitus without complication, without long-term current use of insulin E11.[address] Apr, [place] [address] Apr, Right [place] [address] R10.31 [place] [id number] [place] 17 Apr, 2017 Right [place] [address] R10.31 ; Urinary frequency R35.0 and Essential hypertension I10 [facility] [address] [facility] 16 Apr, 2017 [place] [address] [place] [address] [place] Apr, [place] [address] [place] [address] [place] Apr, [place] [address] [facility] [address] [place] Apr, Health [place] [address] [place] [address] Mar, [place] [address] [place] [facility] [address] Mar, [facility] [place] [address] [place] [address] Mar, [place] [address] Mar, [facility] [place] [address] [place] [address] [place] Mar, Uncontrolled type 2 [place] [address] mellitus without complication, without long-term current use of insulin E11.65 and Screening for breast cancer Z12.31 [place] [address] [place] 18 Mar, 2017 [place] [address] [place] [address] 14 Mar, 2017 [place] [address] [facility] [address] Mar, [facility] [place] [address] [place] [address] [place] Mar, [place] [address] [facility] [address] [facility] Mar, Health Dental [place] [address] [place] [address] Mar, Impaired fasting glucose R73.01 [place] [address] and Uncontrolled type 2 diabetes mellitus without complication, without long-term current use of insulin E11.65 [place] [address] Mar, [place] [address] [place] [address] Mar, [place] [address] [place] [address] Mar, [place] [address] [place] [address] Mar, [place] [address] [place] [address] Feb, [place] [address] [place] [address] Feb, [place] [address] [place] [address] [place] [address] [place] [address] Feb, Bruising T14.8 [place] [address] hypercholesterolemia E78.[address] Feb, [place] [address] [place] [address] Feb, [place] [address] [place] [address] Feb, [place] [address] [place] [address] [place] Feb, Cigarette nicotine dependence [place] [address] with nicotine-induced disorder F17.[address] Feb, [place] [address] [place] [address] Feb, [place] [address] [place] [address] [place] Feb, Cigarette nicotine dependence Health [place] [address] with nicotine-induced disorder F17.219 [place] [address] Jan, [place] [address] [place] [address] Jan, [place] [address] [place] [address] Jan, Tension headache G44.209 ; [place] [address] Bilateral low back pain with sciatica, sciatica laterality unspecified M54.40 ; Cigarette nicotine dependence with nicotine-induced disorder F17.219 ; Sprain of ribs, initial encounter S23.41XA ; Pure hypercholesterolemia E78.0 and Essential hypertension I10 [address] Jan, [place] [address] [place] [address] Jan, [place] [address] [place] [address] Jan, [place] [address] [place] [address] [place], [place] [address] [place] [address] [place] Dec, [facility] [place] [address] [place] [address] Dec, [place] [address] [place] [address] Dec, [place] [address] [place] [address] [place] Dec, [facility] [place] [address] [place] [address] Dec, [place] [address] [place] [address] Dec, Tension headache G44.209 ; [place] [address] Clotting disorder D68.9 ; lobsterman current use of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 Z79.01 ; Cigarette nicotine dependence with nicotine-induced disorder F17.219 and Obesity (BMI 30-39.9) E66.9 [place] [address] Dec, [place] [address] [place] [address] Dec, [place] [address] [place] [address] Dec, Bilateral [place] [address] sciatica, sciatica laterality unspecified M54.40 and Clotting disorder D68.[address] [place] [address] Dec, [place] [address] [place] [address] Dec, Clotting disorder D68.9 ; [place] [address] term current use of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 Z79.01 and Cigarette nicotine dependence with nicotine-induced disorder F17.219 [place] [address] Dec, [place] [address] [place] [address] Dec, [place] [address] [place] [address] [place] Dec, Health [place] [address] [place] [address] November, [place] [address] [place] [address] November, [place] [address] [place] [address] November, [place] [address] [place] [address] November, [place] [address] [place] [address] November, [place] [address] [place] [address] November[place] [address] [place] [address] November, [place] [address] [place] [address] November, [place] [address] [place] [address] November, [place] [address] [place] [address] November, [place] [address] [place] [address] November, [place] [address] [place] [address] November, [place] [address] [place] [address] Oct, [place] [address] [place] [address] Oct, [place] [address] [place] [address] Oct, [place] [address] [place] [address] Oct, [place] [address] [place] [address] Oct, [place] [address] [place] [address] Oct, Other chest pain R07.89 ; Pain, [place] [address] arm, left M79.602 ; Posterior left knee pain M25.562 ; Essential hypertension I10 and Hypercholesteremia E78.00 [place] [address] Oct, [place] [address] [place] [address] Oct, Weakness of left arm R29.898 ; [place] [address] History of coagulopathy Z86.2 and Pain, arm, left M79.602 [place] [address] Oct, [place] [address] [place] [address] Oct, [place] [address] [place] [address] Sep, [place] [address] [place] [address] Sep, [place] [address] [place] [address] Sep, [place] [address] [place] [address] Sep, [place] [address] [place] [address] Sep, [place] [address] [place] [address] Sep, [place] [address] [place] [address] Sep, [place] [address] [place] [address] [place] [address] [place] [address] Aug, [place] [address] [place] [address] Aug, [place] [address] [place] [address] Aug, group home [place] [address]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 Z79.01 ; Cigarette nicotine dependence with nicotine-induced disorder F17.219 and Anxiety F41.9 [place] [facility] [address] [place] [address] Aug, [place] [address] [place] [address] Aug, [place] [address] [place] [address] Aug, [place] [address] [place] [address] Aug, [place] [address] [place] [address] Aug, [place] [address] [place] [address] [place] Aug, [place] [address] Aug, [place] [address] [place] [address] [place] Jul, lobsterman [place] [address]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 Z79.01 [place] [address] [place] Jul, Tobacco abuse Z72.0 [place] [address] [place] [address] Jul, [place] [address] [place] [address] Jul, [place] [address] Jul, Abnormal [place] lung [place] [address] Jul, Pulmonary nodules R91.8 [place] [address] [place] [address] Jul, [place] [address] Jul, Tension headache G44.209 ; [place] [address] Bilateral low back pain with sciatica, sciatica laterality unspecified M54.40 ; Cigarette nicotine dependence with nicotine-induced disorder F17.219 ; Wheezing R06.2 and group home current use of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 Z79.[address] Jul, [place] [address] [facility] [address] [facility] [place], [place] [address] [facility] [address] [facility] Jun, [place] [address] [place] [address] Jun, [place] [address] [place] [address] Jun, Chronic headache R51 [place] [address] [place] [address] Jun, [place] [address] [place] [address] Jun, [place] [address] [place] [address] Jun, [place] [address] [place] [address] Jun, [place] [address] [place] [address] Jun, [place] [address] [place] [address] Jun, Tension headache G44.209 [place] [address] [place] [address] May, [place] [address] [place] [address] May, Clotting disorder D68.9 [place] [address] [place] [address] May, Tension headache G44.209 [place] [address] [place] [address] May, [place] [address] [place] [address] May, Encounter for immunization Z23 [place] [address] ; Tension headache G44.209 ; Clotting disorder D68.9 ; Essential hypertension I10 ; Cigarette nicotine dependence with nicotine-induced disorder F17.219 ; Pure hypercholesterolemia E78.0 and Hemorrhage from respiratory passages, unspecified R04.9 [place] [address] May, [place] [address] [place] [address] May, Tension headache G44.209 [place] [address] [place] [address] May, [place] [address] [place] [address] May, [place] [address] [place] [address] May[place] [address] [place] [address] May, [place] [address] [place] [address] May, [place] [address] [facility] [address] May, [place] [address] [place] [address] May, [place] [address] [place] [address] Apr, Clotting disorder D68.9 [place] [address] [place] [facility] [address] [place] [address] Apr, [place] [address] [facility] [address] [facility] Apr, [place] [address] [place] [address] [place], [place] [address] [place] [address] Apr, [place] [address] [place] [address] Apr, [place] [address] [place] [address] Apr, [place] [address] [place] [address] Apr, Clotting disorder D68.9 [place] [address] group home current use of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 Z79.01 [place] [address] Mar, [place] [address] [place] [address] Mar, [place] [address] [place] [address] Mar, Hypomagnesemia E83.42 [place] [address] Abdominal hernia K46.9 [place] [address] Mar, [place] [address] [place] [address] Mar, [place] [address] [place] [address] Mar, [place] [address] [place] [address] Feb, [place] [address] [place] [address] Feb, [place] [address] [place] [address] Feb, group [place] [address]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 Z79.01 [place] [address] [place] Feb, Contusion of lower leg, [place] [address] unspecified laterality, initial encounter S80.10XA and group home current use of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 Z79.[address] [place] [address] Feb, [place] [address] Feb, [place] [address] [place] [address] Feb, [place] [address] [place] [address] Feb, [place] [address] [place] [address] [place] Jan, [place] [address] Jan, [place] [address] [place] [address] Dec, [place] [address] [place] [address] Dec, [place] [address] [place] [address] [place] Dec, Cigarette [place] [address] with nicotine-induced disorder F17.219 ; Seasonal allergies J30.2 ; Pain in right knee M25.561 and Pain in left knee M25.562 [place] [address] Dec, [place] [address] [place] [address] Dec, [place] [address] Dec, [place] [address] [place] [address] November, [place] [address] November, [place] [address] November, [place] [address] [place] [address] Oct, [place] [address] [place] [address] Oct[place] [address] [place] [address] [place] Sep[place] [address] [place] [address] Sep, [place] [address] Sep, [place] [address] [place] [address] [place] Aug, 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 Aug, [place] [address] Aug, Essential hypertension I10 ; [place] [address] Acute nasopharyngitis J00 and Cigarette nicotine dependence with nicotine-induced disorder F17.[address] Aug, [place] [address] Aug, B[place] [address] sciatica, sciatica laterality unspecified M54.40 ; Cigarette nicotine dependence with nicotine-induced disorder F17.219 ; Pain in right leg M79.604 ; Pain of left leg M79.605 ; Clotting disorder D68.9 and Anxiety F41.[address] Jul, [place] [address] Jul, [place] [address] Jul, [place] [address] Jul, Pure hypercholesterolemia E78.0 [place] [address] Jul, Pain in right leg M79.604 ; [place] [address] Pain of left leg M79.605 ; Cigarette nicotine dependence with nicotine-induced disorder F17.219 ; Chronic fatigue R53.82 and Pure hypercholesterolemia E78.0 IMMUNIZATIONS No Known Immunizations SOCIAL HISTORY Never Assessed REASON FOR REFERRAL FUNCTIONAL STATUS PLAN OF CARE VITAL SIGNS MEDICATIONS Unknown Medications PROCEDURES No Known procedures RESULTS No Results REASON FOR VISIT labs Insurance Providers [facility] Member Patient Patient Patient Patient Patient Subscriber Subscriber Subscriber Group Insurance Plan Plan Plan Plan ID Relationship Address Phone Name Date of ID Name Date of No Type Insurance Insurance Insurance Coverage to Subscriber Address Phone Name Dates Medicare National [id number] Medicare self Marii [id number] PPS Government 41 PPS [place] [facility] [address] [facility] [id number] [facility] [phone] [facility] self Marii [id number] DOI Insurance [id number] Insurance [place] 9 [id number] [facility] 0 [id number] [phone] Medicaid self Marii [id number] [facility] [address] [place] [address] [phone] Case self Marii [id number] Management [place] Management [place] [facility] [address] [facility] [phone] [facility] self Marii [id number] [facility] [id number] [facility] [place] [facility] [place] [facility] [address] Medical Medicare National [id number] Medicare self Marii [id number] PPS QMB No Government 41 PPS QMB No [place] [facility] [address] [place] [id number] MEDICAL (GENERAL) HISTORY Type Description Date Medical [...] with sciatica, sciatica laterality unspecified Medical History 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
--- OUTSIDE RECORDS SUMMARY | 2019-07-30 08:23 | XMS REPORT ---
:1965 Author Organization [facility] Address [address] [place] [address] Care Team Providers Name Role Phone Austin Radford Unavailable Unavailable PROBLEMS Type Condition ICD9-CM [id number] Onset Condition SNOMED Code Code Code Dates Status Problem Cubital tunnel syndrome, G56.22 Active 41724302 left Problem Bilateral carpal tunnel G56.03 Active 28247064 syndrome Problem Type 2 diabetes mellitus E11.9 Active 855204726 without complications Problem Diaphragmatic hernia K44.9 Active 64958898 without obstruction or gangrene Problem GERD (gastroesophageal K21.9 Active 561819050 reflux disease) Problem Pulmonary nodule R91.1 Active 288601055 Problem Essential hypertension I10 Active 07849700 Problem Peripheral vascular I73.9 Active 391502447 disease Problem Pure E78.0 Active 330850593 hypercholesterolemia Problem Fatty liver K76.0 Active 337288103 Problem Elevated transaminase R74.0 Active 372378246 level Problem Stage 1 chronic kidney N18.1 Active 615910839 disease Problem Anxiety F41.9 Active 92813328 Problem Primary insomnia F51.01 Active 1500722 Problem Tension headache G44.209 Active 930856520 Problem Status post Z95.828 Active 194341388 aortobifemoral bypass surgery Problem Other obesity due to E66.09 Active 857535606 excess calories Problem Body mass index (BMI) of Z68.37 Active 707384225 37.0-37.9 in adult Problem Bilateral low back pain M54.40 Active 51245370 with sciatica, sciatica laterality unspecified Problem penitentiary current use of Z79.4 Active 616154265 insulin ALLERGIES No Information ENCOUNTERS Encounter Location Date Diagnosis [address] Aug, [place] [address] Jun, [place] [address] Jun, [place] [address] Jun, Type 2 [place] [address] without complications E11.9 ; Encounter for immunization Z23 and penitentiary current use of insulin Z79.[address] Jun, Type 2 diabetes mellitus [place] without complications E11.9 [address] May, [place] [address] May, [place] [address] Mar, [place] [address] Mar, [place] [address] Mar, [place] [address] Mar, [place] [address] Mar, Type 2 [place] [address] without complications E11.[address] Mar, Fatty liver K76.0 ; Left [place] [address] anterior shoulder pain M25.512 and Type 2 diabetes mellitus without complications E11.[address] Feb, Pain in left shoulder M25.512 [place] [address] Feb, [place] [address] Feb, Type 2 [place] [address] without complication, without long-term current use of insulin E11.[address] Feb, Acute [place] [address] M25.512 and Type 2 diabetes mellitus without complication, without long-term current use of insulin E11.[address] Feb, Elevated liver enzymes R74.8 [place] [address] Jan, [place] [address] Jan, [place] [address] Jan, [place] [address] [place] [address] Jan, [place] [address] Jan, [place] [address] [place] [address] Dec, Type 2 [place] [address] without complication, without long-term current use of insulin E11.9 ; Screening for breast cancer Z12.31 and Primary insomnia F51.01 [place] [address] Dec, [place] [address] Dec, [place] [address] Dec, [place] [address] [place] [address] November, [place] [address] [place] [address] November, [place] [address] November, [place] [address] November, [place] [address] November, Type 2 [place] [address] without complication, without long-term current use of insulin E11.9 [place] [address] Oct, Type 2 [place] [address] without complication, without long-term current use of insulin E11.9 [place] [address] Oct, Type 2 [place] [address] without complication, without long-term current use of insulin E11.9 ; Transaminitis R74.0 ; penitentiary current use of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 Z79.01 and Chest pain at rest R07.[address] Sep, Type 2 diabetes mellitus [place] without complications E11.9 [address] Aug, [place] [address] [facility] [address] [facility] Aug, [place] [address] [facility] [address] [place] [address] Aug, Type 2 diabetes mellitus [place] without complications E11.9 [address] [facility] [address] [place] [address] Jul, Type 2 diabetes mellitus [place] without complications E11.9 [address] Jul, Bladder pain R39.89 ; Type 2 [place] [address] diabetes mellitus without complications E11.9 and 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 [facility] Jul, Uncontrolled type 2 [place] [address] mellitus without complication, without long-term current use of insulin E11.65 [facility] 513 . [facility] Jul, [place] [address] [facility] [address] [place] [address] Jul, [place] [address] Jul, Status post [place]ortobif[place] [address] bypass surgery Z95.[address] Jul, [place] [address] [facility] [address] Jun[place] [address] [facility] [address] [facility] Jun, [place] [address] [facility] [address] [place] [address] Jun, [place] [address] [facility] [address] Jun, [place] [address] [place] [address] Jun, [place] [address] [facility] [address] [place] [address] Jun, [place] [address] Migel Nguyen [address] Jun, [facility] [place] [address] [facility] [address] May, [place] [address] [place] [address] May, penitentiary current [place] [address]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 Z79.[address] [place] [address] May, Bronchitis J40 ; [place] [address] maxillary sinusitis J01.00 ; Clotting disorder D68.9 and Type 2 diabetes mellitus without complication, without long-term current use of insulin E11.[address] May, [place] [address] Apr, [place] [address] [place] [address] Apr, [place] [address] [place] [address] Apr, Clotting disorder D68.9 [place] [address] [place] [address] Apr, [place] [address] [place] [address] Apr, [place] [address] [place] [address] Apr, Type 2 [place] [address] without complication, without long-term current use of insulin E11.9 [place] [address] Apr, [place] [address] [place] [address] Apr, [place] [address] [place] [address] Apr, [place] [address] [place] [address] 15 Apr, 2018 Type 2 [place] [address] without complication, without long-term current use of insulin E11.9 [place] [address] Apr, [place] [address] [place] [address] Apr, [place] [address] Apr, [place] [address] Apr, [place] [address] Apr, [place] [address] Apr, Bilateral low [place] [address] sciatica, sciatica laterality unspecified M54.40 ; Type 2 diabetes mellitus without complication, without long-term current use of insulin E11.9 ; Essential hypertension I10 ; Vision changes H53.9 ; Rash R21 ; Other obesity due to excess calories E66.09 ; Body mass index (BMI) of 37.0-37.9 in adult Z68.37 and Encounter for immunization Z23 [facility] [address] [facility] Apr, [place] [address] Mar, [place] [address] Mar, [place] [address] Mar, [place] [address] Mar, penitentiary current use of [facility] [place]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 Z79.01 [address] Mar, [place] [address] Mar, [place] [address] I73.9 ; Left foot pain M79.672 ; Bilateral low back pain with sciatica, sciatica laterality unspecified M54.40 ; Other obesity due to excess calories E66.09 ; Body mass index (BMI) of 37.0-37.9 in adult Z68.37 ; 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 and Elevated liver enzymes R74.[address] Mar, [place] [address] Mar, [place] [address] Mar, Peripheral vascular disease [place] I73.9 ; Left foot pain M79.672 [address] ; Swelling of left foot M79.89 and Type 2 diabetes mellitus without complication, without long-term current use of insulin E11.[address] Mar, [place] [address] Feb, [place] [address] Feb, [place] [address] Feb, Type 2 [place] [address] without complication, without long-term current use of insulin E11.[address] Feb, [place] [address] [facility] 513 . [facility] Feb, [place] [address] [place] [address] Feb, [place] [address] [facility] 513 . [facility] Feb, Pain in right knee M25.561 [place] [address] [facility] [address] [facility] Feb, [place] [address] [facility] [address] [place] [address] Feb, [place] [address] [facility] [address] [place] [address] Feb[place] [address] [facility] [address] [place] [address] Jan, [place] [address] [place] [address] Jan, [place] [address] [place] [address] Jan, Type 2 diabetes mellitus [place] [address] without complication, without long-term current use of insulin E11.9 ; Acute pain of right knee M25.561 ; Bilateral low back pain with sciatica, sciatica laterality unspecified M54.40 ; Generalized abdominal tenderness R10.817 ; Other obesity due to excess calories E66.09 and Body mass index (BMI) of 37.0-37.9 in adult Z68.37 [place] [address] Jan, [place] [address] [facility] [address] [place] [address] Jan, [place] [address] [place] [address] Jan, Rib pain on left side R07.81 [place] [address] [place] [address] Jan, [place] [address] [place] [address] Dec, [place] [address] [place] [address] Dec, [place] [address] [facility] 513 . [facility] Dec, [place] [address] [place] [address] Dec, [place] [address] [facility] [address] [place] [address] Dec, [place] [address] [place] Dec, [facility] [place] [address] [place] [address] Dec, [place] [address] [place] [address] November, [facility] [place] [address] [place] [address] November, [place] [address] [place] [address] November, Type 2 [place] [address] without complication, without long-term current use of insulin E11.9 ; Left hip pain M25.552 and Anxiety F41.9 [place] [address] November, [place] [address] [place] [address] November, [facility] [place] [address] [place] [address] November, [place] [address] November, [place] [address] [place] [address] November, [place] [address] November, [place] [address] [place] [address] November, Type 2 [place] [address] without complication, without long-term current use of insulin E11.[address] November, [place] [address] November, Health [place] [address] [place] [address] November, [facility] [place] [address] [place] [address] November, [place] [address] Migel Nguyen [address] November, [facility] [place] [address] [place] [address] Oct, [facility] [place] [address] [place] [address] Oct, Vaginal yeast infection B37.3 ; [place] [address] Stomach pain R10.9 ; Other obesity due to excess calories E66.09 and Body mass index (BMI) of 37.0-37.9 in adult Z68.[address] [place] [address] [place] Oct, [facility] [place] [address] [place] [address] Oct, [place] [address] [place] [address] [place] Oct, [facility] [place] [address] [place] [address] Oct, [place] [address] [place] [address] Sep, [place] [address] [place] [address] Sep, [place] [address] [place] [address] Sep, [place] [address] R10.[address] [place] [address] Sep, [place] [address] [place] [address] Sep[place] [address] [place] [address] Sep, [place] [address] [place] [address] Sep, Tenderness at [place] [address] R19.8 and Right upper quadrant pain R10.11 [place] [address] Sep, [place] [address] [place] [address] Sep, [place] [address] [place] [address] Sep, Type 2 [place] [address] without complication, without long-term current use of insulin E11.9 ; Clotting disorder D68.9 ; penitentiary current use of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 Z79.01 ; Essential hypertension I10 ; Anxiety F41.9 ; Generalized abdominal pain R10.84 ; Paresthesia of skin R20.2 ; Anesthesia of skin R20.0 ; Obesity (BMI 30-39.9) E66.9 and BMI 36.0-36.9,adult Z68.36 [place] [address] [place] Sep, [facility] [place] [address] [place] [address] Sep, [place] [address] [place] [address] [place] Sep, [facility] [place] [address] [place] [address] Sep, [place] [address] [place] [address] Aug, [place] [address] [place] [address] Aug, Type 2 [place] [address] without complication, without long-term current use of insulin E11.9 [place] [address] Aug, [place] [address] [place] [address] Aug, Anesthesia of skin R20.0 ; [place] [address] Elevated transaminase level R74.0 ; Lump in throat R22.1 and Type 2 diabetes mellitus without complication, without long-term current use of insulin E11.9 [place] [address] Aug, [place] [address] [place] [address] Aug, [place] [address] [place] [address] Aug, Raynaud''s phenomenon [place] [address] gangrene I73.00 [place] [address] [facility] Aug, [place] [address] Aug, Raynaud''s phenomenon [place] [address] gangrene I73.[address] [place] [address] Aug, [place] [address] [place] [address] Jul, [place] [address] [place] [address] Jul, [place] [address] [place] [address] Jul, Raynaud''s phenomenon [place] [address] gangrene I73.00 and Lymphadenopathy R59.1 [facility] [address] Jul, [place] [address] [facility] [address] [facility] Jul, [place] [address] [place] [address] Jul, Raynaud''s phenomenon [place] [address] gangrene I73.[address] [place] [address] Jul, [place] [address] [place] [address] Jul, Uncontrolled type 2 [place] [address] mellitus without complication, without long-term current use of insulin E11.65 [place] [address] Jul, [place] [address] Jun, [place] [address] Jun, [place] [address] Jun, [place] [address] Jun, [place] [address] Jun, [place] [address] Jun, Epigastric pain R10.13 ; Type 2 [place] [address] diabetes mellitus without complication, without long-term current use of insulin E11.9 ; Clotting disorder D68.9 ; Obesity (BMI 30-39.9) E66.9 ; BMI 35.0-35.9,adult Z68.35 and Colon cancer screening Z12.[address] Jun, [place] [address] [place] [address] Jun, [address] Jun, [place] [address] Jun, [place] [address] May, Pure hypercholesterolemia E78.0 [place] [address] May, Rib pain on left side R07.81 ; [place] [address] Pneumonia of both lungs due to infectious organism, unspecified part of lung J18.9 ; Clotting disorder D68.9 ; penitentiary current use of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 Z79.01 ; Obesity (BMI 30-39.9) E66.9 and BMI 35.0-35.9,adult Z68.[address] May, Uncontrolled [place] 2 [place] [address] mellitus without complication, without long-term current use of insulin E11.[address] May, [place] [address] May, Pneumonia [place] [address] infectious organism, unspecified part of lung J18.[address] May, Pneumonia of both [place] [address] infectious organism, unspecified part of lung J18.[address] May, Uncontrolled type 2 [place] [address] mellitus without complication, without long-term current use of insulin E11.[address] [place] May, [place] [address] May, [place] [address] May, Fatty liver K76.0 ; [place] [address] LFTs R79.89 ; Clotting disorder D68.9 ; Cigarette nicotine dependence without complication F17.210 ; Obesity (BMI 30-39.9) E66.9 and BMI 35.0-35.9,adult Z68.[address] [place] May, Uncontrolled [place] 2 [place] [address] mellitus without complication, without long-term current use of insulin E11.[address] May, [place] [address] [facility] [address] [place] [address] Apr, [place] [address] Apr, Left upper quadrant pain R10.12 [place] [address] ; Transaminase or LDH elevation R74.0 ; Wheezing R06.2 and Cigarette nicotine dependence with nicotine-induced disorder F17.[address] Apr, Type 2 [place] [address] without complication, without long-term current use of insulin E11.[address] Apr, [place] [address] Apr, Uncontrolled type 2 [place] [address] mellitus without complication, without long-term current use of insulin E11.[address] Apr, [place] [address] Apr, Right lower [place] [address] [address]10[address] Apr, Right lower [place] [address] R10.31 ; Urinary frequency R35.0 and Essential hypertension I10 [facility] [address] [facility] 16 Apr, 2017 [place] [address] [facility] [address] Apr, [place] [address] [place] [address] Apr, [place] [address] [facility] [address] [place] Apr, [facility] [place] [address] [facility] [address] Mar, [place] [address] [place] [address] Mar, [place] [address] [facility] [address] Mar, [place] [address] [facility] [address] [facility] Mar, [place] [address] [place] [address] Mar, Uncontrolled type 2 [place] [address] mellitus without complication, without long-term current use of insulin E11.65 and Screening for breast cancer Z12.31 [place] [address] Mar, [place] [address] [place] [address] Mar, [place] [address] [facility] [address] [place] Mar, [facility] [place] [address] [place] [address] Mar, [place] [address] [facility] [address] [facility] 09 Mar, 2017 [place] [address] [place] [address] 08 Mar, 2017 Impaired fasting glucose R73.01 [place] [address] and Uncontrolled type 2 diabetes mellitus without complication, without long-term current use of insulin E11.65 [place] [address] Mar, [place] [address] [facility] [address] Mar, [place] [address] [facility] [address] Mar, [place] [address] [place] [address] Mar, [place] [address] [place] [address] Feb, [place] [address] [place] [address] Feb, [place] [address] [place] [address] Feb, [place] [address] [place] [address] Feb, Bru[place] T14.8 [place] [address] hypercholesterolemia E78.[address] Feb, [place] [address] [place] [address] Feb, [place] [address] [place] [address] [place] Feb, [facility] [place] [address] [place] [address] [place] Feb, Cigarette nicotine dependence [facility] [place] [address] with nicotine-induced disorder F17.[address] Feb, [place] [address] [place] [address] Feb, [place] [address] [place] [address] [place] Feb, Cigarette nicotine dependence [facility] [place] [address] with nicotine-induced disorder F17.219 [place] [address] [place] Jan, Health [place] [address] [place] [address] Jan, [place] [address] [place] [address] Jan, Tension headache G44.209 ; [place] [address] Bilateral low back pain with sciatica, sciatica laterality unspecified M54.40 ; Cigarette nicotine dependence with nicotine-induced disorder F17.219 ; Sprain of ribs, initial encounter S23.41XA ; Pure hypercholesterolemia E78.0 and Essential hypertension I10 [address] Jan, [place] [address] [place] [address] Jan, [place] [address] [place] [address] Jan, [place] [address] [place] [address] Jan, [place] [address] [place] [address] [place] Dec, [facility] [place] [address] [place] [address] Dec, [place] [address] [place] [address] Dec, [place] [address] [place] [address] [place] Dec, [facility] [place] [address] [place] [address] Dec, [place] [address] [place] [address] Dec, Tension headache G44.209 ; [place] [address] Clotting disorder D68.9 ; penitentiary current use of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 Z79.01 ; Cigarette nicotine dependence with nicotine-induced disorder F17.219 and Obesity (BMI 30-39.9) E66.9 [place] [address] Dec, [place] [address] [place] [address] Dec, [place] [address] [place] [address] Dec, Bilateral [place] [address] sciatica, sciatica laterality unspecified M54.40 and Clotting disorder D68.9 [place] [address] Dec, [place] [address] [place] [address] Dec, Clotting disorder D68.9 ; [place] [address] term current use of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 Z79.01 and Cigarette nicotine dependence with nicotine-induced disorder F17.219 [place] [address] Dec, [place] [address] [place] [address] Dec, [place] [address] [facility] [address] [place] Dec, [facility] [place] [address] [place] [address] November, [place] [address] [place] [address] November, [place] [address] [place] [address] November[place] [address] [place] [address] November, [place] [address] [place] [address] November, [place] [address] [place] [address] November, [place] [address] [place] [address] November[place] [address] [place] [address] November, [place] [address] [place] [address] November, [place] [address] [place] [address] November[place] [address] [place] [address] November, [place] [address] [place] [address] November, [place] [address] [place] [address] Oct, [place] [address] [place] [address] Oct, [place] [address] [place] [address] Oct, [place] [address] [place] [address] Oct, [place] [address] [place] [address] Oct, [place] [address] [place] [address] Oct, Other chest pain R07.89 ; Pain, [place] [address] arm, left M79.602 ; Posterior left knee pain M25.562 ; Essential hypertension I10 and Hypercholesteremia E78.00 [place] [address] Oct, [place] [address] [place] [address] Oct, Weakness of left arm R29.898 ; [place] [address] History of coagulopathy Z86.2 and Pain, arm, left M79.602 [place] [address] Oct, [place] [address] [place] [address] Oct, [place] [address] [place] [address] Sep, [place] [address] [place] [address] Sep, [place] [address] [place] [address] Sep[place] [address] [place] [address] Sep, [place] [address] [place] [address] Sep, [place] [address] [place] [address] Sep, [place] [address] [place] [address] Sep, [place] [address] [place] [address] Sep, [place] [address] [place] [address] Aug, [place] [address] [place] [address] Aug, [place] [address] [place] [address] Aug, 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 Z79.01 ; Cigarette nicotine dependence with nicotine-induced disorder F17.219 and Anxiety F41.9 [facility] [address] [facility] Aug, [place] [address] Aug, [place] [address] [place] [address] Aug, [place] [address] [place] [address] Aug, [place] [address] [place] [address] Aug, [place] [address] [place] [address] Aug[place] [address] [place] [address] Aug, [place] [address] [place] [address] Jul, 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[place] [address]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 Z79.01 [place] [address] Jul, Tobacco abuse Z72.0 [place] [address] [place] [address] Jul, [place] [address] [place] [address] Jul, [place] [address] [place] [address] Jul, Abnormal [place] lung [place] [address] Jul, Pulmonary nodules R91.8 [place] [address] [place] [address] Jul, [place] [address] Jul, Tension headache G44.209 ; [place] [address] Bilateral low back pain with sciatica, sciatica laterality unspecified M54.40 ; Cigarette nicotine dependence with nicotine-induced disorder F17.219 ; Wheezing R06.2 and penitentiary current use of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 Z79.01 [place] [address] Jul, [place] [address] [facility] [address] [facility] Jul, [place] [address] [facility] [address] [facility] Jun, [place] [address] [place] [address] Jun, [place] [address] [place] [address] 14 Jun, 2016 Chronic headache R51 [place] [address] [place] [address] Jun, 2016 [place] [address] [place] [address] [place] [address] [place] [address] Jun, [place] [address] [place] [address] Jun, [place] [address] [place] [address] Jun, [place] [address] [place] [address] Jun, Tension headache G44.209 [place] [address] [place] [address] May, [place] [address] [place] [address] May, Clotting disorder D68.9 [place] [address] [place] [address] May, Tension headache G44.209 [place] [address] [place] [address] May, [place] [address] [place] [address] May, Encounter for immunization Z23 [place] [address] ; Tension headache G44.209 ; Clotting disorder D68.9 ; Essential hypertension I10 ; Cigarette nicotine dependence with nicotine-induced disorder F17.219 ; Pure hypercholesterolemia E78.0 and Hemorrhage from respiratory passages, unspecified R04.9 [place] [address] May, [place] [address] [place] [address] May, Tension headache G44.209 [place] [address] [place] [address] May, [place] [address] [place] [address] May, [place] [address] [place] [address] May, [place] [address] [place] [address] May, [place] [address] [place] [address] May, [place] [address] [facility] [address] May, [place] [address] [place] [address] May, [place] [address] [place] [address] Apr, Clotting disorder D68.9 [place] [address] [facility] [address] Apr, [place] [address] [facility] [address] Apr, [place] [address] [place] [address] Apr, [place] [address] [place] [address] Apr, [place] [address] [place] [address] Apr, [place] [address] [place] [address] Apr, [place] [address] [place] [address] Apr, Clotting disorder D68.9 [place] [address] 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 [place] [address] Mar, [place] [address] [place] [address] Mar, [place] [address] [place] [address] Mar, Hypomagnesemia E83.42 [place] [address] Abdominal hernia K46.[address] [place] [address] Mar, [place] [address] [place] [address] Mar, [place] [address] [place] [address] Mar, [place] [address] [place] [address] Feb, [place] [address] [place] [address] Feb, [place] [address] [place] [address] Feb, penitentiary current [place] [address]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 Z79.01 [place] [address] Feb, Contusion of lower leg, [place] [address] unspecified laterality, initial encounter S80.10XA and penitentiary current use of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 Z79.[address] [facility] [address] Feb, [place] [address] Feb, [place] [address] [place] [address] Feb, [place] [address] [place] [address] Feb, [place] [address] [place] [address] Jan, [place] [address] Jan, [place] [address] [place] [address] Dec, [place] [address] [place] [address] Dec, [place] [address] [place] [address] Dec, [place] [address] with nicotine-induced disorder F17.219 ; Seasonal allergies J30.2 ; Pain in right knee M25.561 and Pain in left knee M25.562 [place] [address] Dec, [place] [address] [place] [address] Dec, [place] [address] Dec, [place] [address] [place] [address] November, [place] [address] November, [place] [address] November, [place] [address] [place] [address] Oct, [place] [address] [place] [address] Oct, [place] [address] [place] [address] Sep, [place] [address] [place] [address] Sep, [place] [address] Sep, [place] [address] [place] [address] 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, 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[place] [address]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 Z79.01 ; Cigarette nicotine dependence with nicotine-induced disorder F17.219 ; Generalized abdominal tenderness R10.817 and Essential hypertension I10 [place] [address] Aug, 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 [address]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 Z79.01 ; Bilateral low back pain with sciatica, sciatica laterality unspecified M54.40 and Cigarette nicotine dependence with nicotine-induced disorder F17.219 [place] [address] Aug, [place] [address] [place] [address] Aug, Essential hypertension I10 ; [place] [address] Acute nasopharyngitis J00 and Cigarette nicotine dependence with nicotine-induced disorder F17.[address] Aug, [place] [address] Aug, [place] [address] sciatica, sciatica laterality unspecified M54.40 ; Cigarette nicotine dependence with nicotine-induced disorder F17.219 ; Pain in right leg M79.604 ; Pain of left leg M79.605 ; Clotting disorder D68.9 and Anxiety F41.[address] Jul, [place] [address] Jul, [address] Jul, [place] [address] Jul, Pure hypercholesterolemia E78.0 [place] [address] Jul, Pain in right leg M79.604 ; [place] [address] Pain of left leg M79.605 ; Cigarette nicotine dependence with nicotine-induced disorder F17.219 ; Chronic fatigue R53.82 and Pure hypercholesterolemia E78.0 IMMUNIZATIONS Vaccine Route Administration Date Status [facility] 3 yrs and older Quad IM Intramuscular Jun 10, 2019 Administered SOCIAL HISTORY Never Assessed REASON FOR REFERRAL FUNCTIONAL STATUS PLAN OF CARE Activity Details Follow Up 3 Months Reason:diabetes fu VITAL SIGNS Temperature 97.7 degrees Fahrenheit 2019-06-10 Heart Rate 20 2019-06-10 Weight 183.2 2019-06-10 Height 5' in 2019-06-10 BMI 35.77 kg/m2 2019-06-10 Oximetry 96 % 2019-06-10 Blood pressure systolic 132 mm Hg 2019-06-10 Blood pressure diastolic 80 mm Hg 2019-06-10 MEDICATIONS Medication Instructions Dosage Frequency Start End Duration Status Date Date Omeprazole 40 mg Orally Once a 1 capsule 24h 30 Active day Trulicity 1.5 Subcutaneous 1.5mg Apr,, Active MG/0.5ML weekly 2017 2019 Complete Orally daily 1 cap(s) 24h Active Multi-Vitamin - BD Pen Needle External qhs as directed Jul, days Active Short U/F 31G X 2019 8 MM Eliquis 2.5 MG Orally bid as directed 30 Active (start taking after INR >2.0) Lancet Devices - Device BID or as as directed 14 May, 30 day(s) Active directed for 2019 E11.9 Basaglar KwikPen Subcutaneous qhs 55 units 11 Jan, Active 100 UNIT/ML 2018 Percocet 10-325 Orally every 6 1 tablet as 6h Active MG hrs needed OneTouch Delica Device bid as directed 12h 27 May, 90 days Active Lancets - 2016 Aspir-81 81 MG Orally Once a 1 tablet 24h Active day Atorvastatin Orally Once a 1 tablet 24h 30 Active Calcium 20 mg day FreeStyle Lite In Vitro bid for as directed Apr, 90 days Active Test - e11.9 2018 PROCEDURES Procedure Date Ordered Result Body Site [facility] visit, est patient Jun 10, 2019 Administration Influenza Medicare Only Jun 10, 2019 [facility] Afluria 3 yrs and older Quad Jun 10, 2019 GLYCATED HEMOGLOBIN A1C Jun 10, 2019 BODY MASS INDEX DOCD Jun 10, 2019 SMOKING + 2ND HAND ASSESSED Jun 10, 2019 Oxygen saturation results documented and reviewed Jun 10, 2019 BLOOD PRESSURE, MEASURED Jun 10, 2019 RESULTS Name Result Date Reference Range -HbA1c - In House Test HbA1c 7.5 MICROALBUMIN, RANDOM URINE (W/CREATININE) 2019-06-10 CREATININE, RANDOM URINE 148 20-275 ALBUMIN, URINE 1.5 See Note: ALBUMIN/CREATININE RATIO, RANDOM URINE 10 <30 REASON FOR VISIT DM f/u, PVP:A1C,FLU,ZOSTER,FOOT EXAM,MICROALBUMIN,ЕЛЕНА Offer imms. MPT, agreed to the flu shot.CM , PATIENT IS SCHEDULE FOR 06/20/2019 FOR ЕЛЕНА Insurance Providers [facility] Health Member Patient Patient Patient Patient Patient Subscriber Subscriber Subscriber Group Insurance Plan Plan Plan Plan ID Relationship Address Phone Name Date of ID Name Date of No Type Insurance Insurance Insurance Coverage to Subscriber Address Phone Name Dates Medicare National Medicare self Marii [id number] PPS Government 41 PPS [facility] [address] [place] [id number] Well[employer] [phone] Well[employer] self Marii [id number] Of [place] PPO [id number] 63 [place] [facility] [place] [facility] [id number] Medical Medicare National Medicare self Marii [id number] PPS QMB No Government 41 PPS QMB No [facility] [address] [place] [id number] Case [phone] Case self Marii [id number] Management [place] [address] Management [facility] [address] [facility] Medicaid [id number] [phone] Medicaid self Marii [id number] [facility] [address] [place] [address] [place] [phone] [place] self [place] [id number] DOI Insurance [id number] Insurance [place] [id number] Fund WC [facility] [id number] MEDICAL (GENERAL) HISTORY Type Description Date Medical [...] Hx of deep venous thrombosis Medical History 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
--- OUTSIDE RECORDS SUMMARY | 2019-07-30 08:23 | XMS REPORT ---
:1965 Author Organization [facility] Address [address] [place] [address] Care Team Providers Name Role Phone Austin Radford Unavailable Unavailable PROBLEMS Type Condition ICD9-CM PSE75-DR Onset Condition SNOMED Code Code Code Dates Status Problem Cubital tunnel syndrome, G56.22 Active 05502636 left Problem Bilateral carpal tunnel G56.03 Active 21965524 syndrome Problem Type 2 diabetes mellitus E11.9 Active 919447582 without complications Problem Diaphragmatic hernia K44.9 Active 34477337 without obstruction or gangrene Problem GERD (gastroesophageal K21.9 Active 509883275 reflux disease) Problem Pulmonary nodule R91.1 Active 083633366 Problem Essential hypertension I10 Active 26944797 Problem Peripheral vascular I73.9 Active 338896644 disease Problem Pure E78.0 Active 722708568 hypercholesterolemia Problem Fatty liver K76.0 Active 480760361 Problem Elevated transaminase R74.0 Active 174479533 level Problem Stage 1 chronic kidney N18.1 Active 554782048 disease Problem Anxiety F41.9 Active 88928310 Problem Primary insomnia F51.01 Active 1800968 Problem Tension headache G44.209 Active 821637802 Problem Status post Z95.828 Active 779039534 aortobifemoral bypass surgery Problem Other obesity due to E66.09 Active 151954132 excess calories Problem Body mass index (BMI) of Z68.37 Active 561286776 37.0-37.9 in adult Problem Bilateral low back pain M54.40 Active 06128224 with sciatica, sciatica laterality unspecified Problem senior living current use of Z79.4 Active 411656853 insulin ALLERGIES No Information ENCOUNTERS Encounter Location Date Diagnosis [address] Aug, [place] [address] Jun, [place] [address] Jun, [place] [address] Jun, Type 2 [place] [address] without complications E11.9 ; Encounter for immunization Z23 and senior living current use of insulin Z79.[address] Jun, Type 2 diabetes mellitus [place] without complications E11.9 [address] May, [place] [address] May, [place] [address] Mar, [place] [address] Mar, [place] [address] Mar, [place] [address] Mar, [place] [address] Mar, Type 2 [place] [address] without complications E11.[address] Mar, Fatty liver K76.0 ; [place] [address] anterior shoulder pain M25.512 and Type 2 diabetes mellitus without complications E11.[address] Feb, Pain in left shoulder M25.512 [place] [address] Feb, [place] [address] Feb, Type 2 [place] [address] without complication, without long-term current use of insulin E11.[address] Feb, Acute pain of [place] [address] M25.512 and Type 2 diabetes mellitus without complication, without long-term current use of insulin E11.[address] Feb, Elevated liver enzymes R74.8 [place] [address] Jan, [place] [address] Jan, [place] [address] Jan, [place] [address] [place] [address] [place] Jan, [place] [address] Jan, [place] [address] [place] [address] [place] Dec, Type 2 [place] [address] without complication, without long-term current use of insulin E11.9 ; Screening for breast cancer Z12.31 and Primary insomnia F51.01 [place] [address] [place] Dec, [place] [address] Dec, [place] [address] Dec, [place] [address] [place] [address] [place] November, [place] [address] [place] [address] [place] November, [place] [address] November, [place] [address] November, [place] [address] November, Type 2 [place] [address] without complication, without long-term current use of insulin E11.9 [place] [address] [place] Oct, Type 2 [place] [address] without complication, without long-term current use of insulin E11.9 [place] [address] [place] Oct, Type 2 [place] [address] without complication, without long-term current use of insulin E11.9 ; Transaminitis R74.0 ; senior living current use of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 Z79.01 and Chest pain at rest R07.[address] Sep, Type 2 diabetes mellitus [place] without complications E11.9 [address] Aug, [place] [address] [facility] [address] [facility] Aug, [place] [address] [facility] [address] [place] [address] Aug, Type 2 diabetes mellitus [place] without complications E11.9 [address] [facility] [address] [place] [address] Jul, Type 2 diabetes mellitus [place] without complications E11.9 [address] Jul, Bladder pain R39.89 ; Type 2 [place] [address] diabetes mellitus without complications E11.9 and 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 [facility] Jul, Uncontrolled type 2 [place] [address] mellitus without complication, without long-term current use of insulin E11.65 [facility] 513 . [facility] Jul, [place] [address] [facility] [address] [place] [address] Jul, [place] [address] Jul, Status post aortobifem[place] [address] bypass surgery Z95.[address] Jul, [place] [address] [facility] [address] Jun, [place] [address] [facility] [address] [facility] Jun, [place] [address] [facility] [address] [place] [address] Jun, [place] [address] [facility] [address] Jun, [place] [address] [place] [address] Jun, [place] [address] [facility] [address] [place] [address] Jun, [place] [address] Migel Nguyen [address] Jun, [facility] [place] [address] [facility] [address] May, [place] [address] [place] [address] May, senior living [place] [address]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 Z79.01 [place] [address] May, Bronchitis J40 ; [place] [address] maxillary sinusitis J01.00 ; Clotting disorder D68.9 and Type 2 diabetes mellitus without complication, without long-term current use of insulin E11.[address] May, [place] [address] Apr, [place] [address] [place] [address] [place] Apr, [place] [address] [place] [address] [place] Apr, Clotting disorder D68.9 [place] [address] [place] [address] [place] Apr, [place] [address] [place] [address] [place] Apr, [place] [address] [place] [address] [place] Apr, Type 2 [place] [address] without complication, without long-term current use of insulin E11.9 [place] [address] [place] Apr, [place] [address] [place] [address] [place] Apr, [place] [address] [place] [address] [place] Apr, [place] [address] [place] [address] [place] 15 Apr, 2018 Type 2 [place] [address] without complication, without long-term current use of insulin E11.9 [place] [address] [place] Apr, [place] [address] [place] [address] [place] Apr, [place] [address] Apr, [place] [address] Apr, [place] [address] Apr, [place] [address] Apr, Bilateral low [place] [address] sciatica, sciatica laterality unspecified M54.40 ; Type 2 diabetes mellitus without complication, without long-term current use of insulin E11.9 ; Essential hypertension I10 ; Vision changes H53.9 ; Rash R21 ; Other obesity due to excess calories E66.09 ; Body mass index (BMI) of 37.0-37.9 in adult Z68.37 and Encounter for immunization Z23 [facility] [address] [facility] Apr, [place] [address] Mar, [place] [address] Mar, [place] [address] Mar, [place] [address] Mar, senior living current use of [facility] [place]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 Z79.01 [address] Mar, [place] [address] Mar, Per[place] [address] I73.9 ; Left foot pain M79.672 ; Bilateral low back pain with sciatica, sciatica laterality unspecified M54.40 ; Other obesity due to excess calories E66.09 ; Body mass index (BMI) of 37.0-37.9 in adult Z68.37 ; 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 and Elevated liver enzymes R74.[address] Mar, [place] [address] Mar, [place] [address] Mar, Peripheral vascular disease [place] I73.9 ; Left foot pain M79.672 [address] ; Swelling of left foot M79.89 and Type 2 diabetes mellitus without complication, without long-term current use of insulin E11.[address] Mar, [place] [address] Feb, [place] [address] Feb, [place] [address] Feb, Type 2 [place] [address] without complication, without long-term current use of insulin E11.[address] Feb, [place] [address] [facility] 513 . [facility] Feb, [place] [address] [place] [address] [place] Feb, [place] [address] [facility] 513 . [facility] Feb, Pain in right knee M25.561 [place] [address] [facility] [address] [facility] Feb, [place] [address] [facility] [address] [place] [address] Feb[place] [address] [facility] [address] [place] [address] Feb, [place] [address] [facility] [address] [place] [address] Jan, [place] [address] [place] [address] [place] Jan, [place] [address] [place] [address] [place] Jan, Type 2 diabetes [place] [address] without complication, without long-term current use of insulin E11.9 ; Acute pain of right knee M25.561 ; Bilateral low back pain with sciatica, sciatica laterality unspecified M54.40 ; Generalized abdominal tenderness R10.817 ; Other obesity due to excess calories E66.09 and Body mass index (BMI) of 37.0-37.9 in adult Z68.37 [place] [address] [place] Jan, [place] [address] [facility] [address] [place] [address] Jan, [place] [address] [place] [address] [place] Jan, Rib pain on left side R07.81 [place] [address] [place] [address] Jan, [place] [address] [place] [address] Dec, [place] [address] [place] [address] Dec, [place] [address] [facility] 513 . [facility] Dec, [place] [address] [place] [address] [place] Dec, [place] [address] [facility] [address] [place] [address] Dec, [place] [address] [place] [place] Dec, [place] [address] [place] [address] [place] Dec, [place] [address] [place] [address] November, [facility] [place] [address] [place] [address] [place] November, [place] [address] [place] [address] [place] November, Type 2 [place] [address] without complication, without long-term current use of insulin E11.9 ; Left hip pain M25.552 and Anxiety F41.9 [place] [address] [place] November, [place] [address] [place] [address] November, [facility] [place] [address] [place] [address] [place] November, [place] [address] November, [place] [address] [place] [address] [place] November, [place] [address] November, [place] [address] [place] [address] [place] November, Type 2 [place] [address] without complication, without long-term current use of insulin E11.[address] November, [place] [address] November, [facility] [place] [address] [place] [address] November, [facility] [place] [address] [place] [address] [place] November, [place] [address] Migel Nguyen [address] November, [facility] [place] [address] [place] [address] Oct, [facility] [place] [address] [place] [address] [place] Oct, Vaginal yeast infection B37.3 ; [place] [address] Stomach pain R10.9 ; Other obesity due to excess calories E66.09 and Body mass index (BMI) of 37.0-37.9 in adult Z68.37 [place] [address] [place] Oct, [facility] [place] [address] [place] [address] Oct, [place] [address] [place] [address] [place] Oct, [place] [address] [place] [address] Oct, [place] [address] [place] [address] Sep, [place] [address] [place] [address] Sep, [place] [address] [place] [address] Sep, Right [place] [address] R10.11 [place] [address] [place] Sep, [place] [address] [place] [address] Sep, [place] [address] [place] [address] [place] Sep, [place] [address] [place] [address] Sep, Tenderness at [place] [address] R19.8 and Right upper quadrant pain R10.11 [place] [address] [place] Sep, [place] [address] [place] [address] Sep, [place] [address] [place] [address] Sep, Type 2 [place] [address] without complication, without long-term current use of insulin E11.9 ; Clotting disorder D68.9 ; senior living current use of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 Z79.01 ; Essential hypertension I10 ; Anxiety F41.9 ; Generalized abdominal pain R10.84 ; Paresthesia of skin R20.2 ; Anesthesia of skin R20.0 ; Obesity (BMI 30-39.9) E66.9 and BMI 36.0-36.9,adult Z68.36 [place] [address] [place] Sep, [place] [address] [place] [address] Sep, [place] [address] [place] [address] [place] Sep, [place] [address] [place] [address] Sep, [place] [address] [place] [address] Aug, [place] [address] [place] [address] Aug, Type 2 [place] [address] without complication, without long-term current use of insulin E11.9 [place] [address] Aug, [place] [address] [place] [address] Aug, Anesthesia of skin R20.0 ; [place] [address] Elevated transaminase level R74.0 ; Lump in throat R22.1 and Type 2 diabetes mellitus without complication, without long-term current use of insulin E11.9 [place] [address] Aug, [place] [address] [place] [address] Aug, [place] [address] [place] [address] Aug, Raynaud''s phenomenon [place] [address] gangrene I73.00 [place] [address] [facility] Aug, [place] [address] Aug, Raynaud''s [place] [address] gangrene I73.00 [place] [address] Aug, [place] [address] [place] [address] Jul, [place] [address] [place] [address] Jul, [place] [address] [place] [address] Jul, Raynaud''s phenomenon [place] [address] gangrene I73.00 and Lymphadenopathy R59.1 [facility] [address] [place] Jul, [place] [address] [facility] [address] [facility] Jul, [place] [address] [place] [address] Jul, Raynaud''s phenomenon [place] [address] gangrene I73.00 [place] [address] Jul, [place] [address] [place] [address] Jul, Uncontrolled type 2 [place] [address] mellitus without complication, without long-term current use of insulin E11.65 [place] [address] Jul, [place] [address] Jun, [place] [address] Jun, [place] [address] Jun, [place] [address] Jun, [place] [address] Jun, [place] [address] Jun, Epigastric pain R10.13 ; Type 2 [place] [address] diabetes mellitus without complication, without long-term current use of insulin E11.9 ; Clotting disorder D68.9 ; Obesity (BMI 30-39.9) E66.9 ; BMI 35.0-35.9,adult Z68.35 and Colon cancer screening Z12.[address] Jun, [place] [address] [place] [address] Jun, [address] [place], [place] [address] Jun, [place] [address] May, Pure hypercholesterolemia E78.0 [place] [address] May, Rib pain on left side R07.81 ; [place] [address] Pneumonia of both lungs due to infectious organism, unspecified part of lung J18.9 ; Clotting disorder D68.9 ; senior living current use of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 Z79.01 ; Obesity (BMI 30-39.9) E66.9 and BMI 35.0-35.9,adult Z68.[address] May, Uncontrolled type 2 [place] [address] mellitus without complication, without long-term current use of insulin E11.[address] [place] May, [place] [address] May, Pneumonia of [place] [address] infectious organism, unspecified part of lung J18.[address] May, Pneumonia of both lungs [place] [address] infectious organism, unspecified part of lung J18.[address] May, Uncontrolled type 2 [place] [address] mellitus without complication, without long-term current use of insulin E11.[address] [place] May, [place] [address] May, [place] [address] May, Fatty liver K76.0 ; [place] [address] LFTs R79.89 ; Clotting disorder D68.9 ; Cigarette nicotine dependence without complication F17.210 ; Obesity (BMI 30-39.9) E66.9 and BMI 35.0-35.9,adult Z68.[address] [place] May, Uncontrolled [place] 2 [place] [address] mellitus without complication, without long-term current use of insulin E11.[address] May, [place] [address] [facility] [address] [place] [address] Apr, [place] [address] Apr, Left upper quadrant pain R10.12 [place] [address] ; Transaminase or LDH elevation R74.0 ; Wheezing R06.2 and Cigarette nicotine dependence with nicotine-induced disorder F17.[address] Apr, Type 2 [place] [address] without complication, without long-term current use of insulin E11.[address] Apr, [place] [address] Apr, Uncontrolled type 2 [place] [address] mellitus without complication, without long-term current use of insulin E11.[address] Apr, [place] [address] Apr, Right lower [place] [address] [address]10.[address] Apr, Right lower [place] [address] R10.31 ; Urinary frequency R35.0 and Essential hypertension I10 [facility] [address] [facility] 16 Apr, 2017 [place] [address] [facility] [address] Apr, [place] [address] [place] [address] [place] Apr, [place] [address] [facility] [address] [place] Apr, [facility] [place] [address] [facility] [address] Mar, [place] [address] [place] [address] Mar, [place] [address] [facility] [address] Mar, [place] [address] [facility] [address] [facility] Mar, [place] [address] [place] [address] [place] Mar, Uncontrolled type 2 [place] [address] mellitus without complication, without long-term current use of insulin E11.65 and Screening for breast cancer Z12.31 [place] [address] Mar, [place] [address] [place] [address] Mar, [place] [address] [facility] [address] [place] Mar, Health [place] [address] [place] [address] Mar, [place] [address] [facility] [address] [facility] 09 Mar, 2017 [place] [address] [place] [address] 08 Mar, 2017 Impaired fasting glucose R73.01 [place] [address] and Uncontrolled type 2 diabetes mellitus without complication, without long-term current use of insulin E11.65 [place] [address] Mar, [place] [address] [facility] [address] Mar, [place] [address] [facility] [address] Mar, [place] [address] [place] [address] Mar, [place] [address] [place] [address] Feb, [place] [address] [place] [address] Feb, [place] [address] [place] [address] Feb, [place] [address] [place] [address] Feb, Bruising T14.8 and Pure [place] [address] hypercholesterolemia E78.[address] Feb, [place] [address] [place] [address] [place] Feb[place] [address] [place] [address] [place] Feb, Health [place] [address] [place] [address] [place] Feb, Cigarette nicotine dependence Health [place] [address] with nicotine-induced disorder F17.[address] Feb, [place] [address] [place] [address] [place] Feb, [place] [address] [place] [address] [place] Feb, Cigarette nicotine dependence Health [place] [address] with nicotine-induced disorder F17.219 [place] [address] [place] Jan, Health [place] [address] [place] [address] [place] Jan, [place] [address] [place] [address] [place] Jan, Tension headache G44.209 ; [place] [address] Bilateral low back pain with sciatica, sciatica laterality unspecified M54.40 ; Cigarette nicotine dependence with nicotine-induced disorder F17.219 ; Sprain of ribs, initial encounter S23.41XA ; Pure hypercholesterolemia E78.0 and Essential hypertension I10 [address] Jan, [place] [address] [place] [address] [place] Jan, [place] [address] [place] [address] [place] Jan, [place] [address] [place] [address] Jan, [place] [address] [place] [address] [place] Dec, Health [place] [address] [place] [address] Dec, [place] [address] [place] [address] Dec, [place] [address] [place] [address] [place] Dec, Health [place] [address] [place] [address] Dec, [place] [address] [place] [address] Dec, Tension headache G44.209 ; [place] [address] Clotting disorder D68.9 ; senior living current use of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 Z79.01 ; Cigarette nicotine dependence with nicotine-induced disorder F17.219 and Obesity (BMI 30-39.9) E66.9 [place] [address] Dec, [place] [address] [place] [address] Dec, [place] [address] [place] [address] Dec, Bilateral low [place] [address] sciatica, sciatica laterality unspecified M54.40 and Clotting disorder D68.9 [place] [address] Dec, [place] [address] [place] [address] Dec, Clotting disorder D68.9 ; [place] [address] term current use of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 Z79.01 and Cigarette nicotine dependence with nicotine-induced disorder F17.219 [place] [address] Dec, [place] [address] [place] [address] Dec, [place] [address] [facility] [address] [place] Dec, Health [place] [address] [place] [address] November, [place] [address] [place] [address] November, [place] [address] [place] [address] November, [place] [address] [place] [address] November, [place] [address] [place] [address] November, [place] [address] [place] [address] November, [place] [address] [place] [address] November, [place] [address] [place] [address] November, [place] [address] [place] [address] November, [place] [address] [place] [address] November[place] [address] [place] [address] November, [place] [address] [place] [address] November, [place] [address] [place] [address] Oct, [place] [address] [place] [address] Oct, [place] [address] [place] [address] Oct[place] [address] [place] [address] Oct, [place] [address] [place] [address] Oct, [place] [address] [place] [address] Oct, Other chest pain R07.89 ; Pain, [place] [address] arm, left M79.602 ; Posterior left knee pain M25.562 ; Essential hypertension I10 and Hypercholesteremia E78.00 [place] [address] Oct, [place] [address] [place] [address] Oct, Weakness of left arm R29.898 ; [place] [address] History of coagulopathy Z86.2 and Pain, arm, left M79.602 [place] [address] Oct, [place] [address] [place] [address] Oct[place] [address] [place] [address] Sep, [place] [address] [place] [address] Sep[place] [address] [place] [address] Sep, [place] [address] [place] [address] Sep, [place] [address] [place] [address] Sep, [place] [address] [place] [address] Sep, [place] [address] [place] [address] Sep, [place] [address] [place] [address] Sep, [place] [address] [place] [address] Aug, [place] [address] [place] [address] Aug, [place] [address] [place] [address] Aug, extermination inspector [place] [address]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 Z79.01 ; Cigarette nicotine dependence with nicotine-induced disorder F17.219 and Anxiety F41.9 [facility] [address] [facility] Aug, [place] [address] Aug, [place] [address] [place] [address] Aug, [place] [address] [place] [address] Aug, [place] [address] [place] [address] [place] Aug, [place] [address] [place] [address] Aug, [place] [address] [place] [address] Aug, [place] [address] [place] [address] [place] Jul, extermination inspector current [place] [address]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 Z79.01 [place] [address] [place] Jul, Tobacco abuse Z72.0 [place] [address] [place] [address] [place] Jul, [place] [address] [place] [address] [place] Jul, [place] [address] [place] [address] [place] Jul, Abnormal [place] [address] Jul, Pulmonary nodules R91.8 [place] [address] [place] [address] [place] Jul, [place] [address] Jul, Tension headache G44.209 ; [place] [address] Bilateral low back pain with sciatica, sciatica laterality unspecified M54.40 ; Cigarette nicotine dependence with nicotine-induced disorder F17.219 ; Wheezing R06.2 and senior living current use of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 Z79.01 [place] [address] [place] Jul, [place] [address] [facility] [address] [facility] [place], [place] [address] [facility] [address] [facility] Jun, [place] [address] [place] [address] Jun, [place] [address] [place] [address] 14 Jun, 2016 Chronic headache R51 [place] [address] [place] [address] Jun, 2016 [place] [address] [place] [address] Jun, [place] [address] [place] [address] Jun, [place] [address] [place] [address] Jun, [place] [address] [place] [address] Jun, [place] [address] [place] [address] Jun, Tension headache G44.209 [place] [address] [place] [address] May, [place] [address] [place] [address] May, Clotting disorder D68.9 [place] [address] [place] [address] May, Tension headache G44.209 [place] [address] [place] [address] May, [place] [address] [place] [address] May, Encounter for immunization Z23 [place] [address] ; Tension headache G44.209 ; Clotting disorder D68.9 ; Essential hypertension I10 ; Cigarette nicotine dependence with nicotine-induced disorder F17.219 ; Pure hypercholesterolemia E78.0 and Hemorrhage from respiratory passages, unspecified R04.[address] [place] [address] May, [place] [address] [place] [address] May, Tension headache G44.209 [place] [address] [place] [address] May, [place] [address] [place] [address] May[place] [address] [place] [address] May, [place] [address] [place] [address] May, [place] [address] [place] [address] May, [place] [address] [facility] [address] [facility] [address] May, [place] [address] [place] [address] May, [place] [address] [place] [address] Apr, Clotting disorder D68.9 [place] [address] [facility] [address] Apr, [place] [address] [facility] [address] [facility] [address] Apr, [place] [address] [place] [address] Apr, [place] [address] [place] [address] Apr[place] [address] [place] [address] Apr, [place] [address] [place] [address] Apr, [place] [address] [place] [address] Apr, Clotting disorder D68.9 [place] [address] 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 [place] [address] Mar, [place] [address] [place] [address] Mar, [place] [address] [place] [address] Mar, Hypomagnesemia E83.42 [place] [address] Abdominal hernia K46.9 [place] [address] Mar, [place] [address] [place] [address] Mar, [place] [address] [place] [address] Mar, [place] [address] [place] [address] Feb, [place] [address] [place] [address] Feb, [place] [address] [place] [address] Feb, senior living [place] [address]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 Z79.01 [place] [address] [place] Feb, Contusion of lower leg, [place] [address] unspecified laterality, initial encounter S80.10XA and senior living current use of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 Z79.[address] [facility] [address] Feb, [place] [address] Feb, [place] [address] [place] [address] Feb, [place] [address] [place] [address] Feb, [place] [address] [place] [address] Jan[place] [address] Jan, [place] [address] [place] [address] Dec, [place] [address] [place] [address] Dec, [place] [address] [place] [address] [place] Dec, Cigarette nicotine [place] [address] with nicotine-induced disorder F17.219 ; Seasonal allergies J30.2 ; Pain in right knee M25.561 and Pain in left knee M25.562 [place] [address] [place] Dec, [place] [address] [place] [address] [place] Dec, [place] [address] Dec, [place] [address] [place] [address] [place] November, [place] [address] November, [place] [address] November, [place] [address] [place] [address] [place] Oct, [place] [address] [place] [address] [place] Oct, [place] [address] [place] [address] [place] Sep, [place] [address] [place] [address] [place] Sep, [place] [address] Sep, [place] [address] [place] [address] [place] Aug, 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 ; Cigarette nicotine dependence with nicotine-induced disorder F17.219 ; Generalized abdominal tenderness R10.817 and Essential hypertension I10 [place] [address] [place] Aug, 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 ; Bilateral low back pain with sciatica, sciatica laterality unspecified M54.40 and Cigarette nicotine dependence with nicotine-induced disorder F17.219 [place] [address] [place] Aug, [place] [address] [place] [address] [place] Aug, Essential hypertension I10 ; [place] [address] Acute nasopharyngitis J00 and Cigarette nicotine dependence with nicotine-induced disorder F17.[address] Aug, [place] [address] Aug, B[place] [address] sciatica, sciatica laterality unspecified M54.40 ; Cigarette nicotine dependence with nicotine-induced disorder F17.219 ; Pain in right leg M79.604 ; Pain of left leg M79.605 ; Clotting disorder D68.9 and Anxiety F41.[address] Jul, [place] [id number] Jul, [place] [id number] Jul, [place] [address] Jul, Pure hypercholesterolemia E78.0 [place] [address] Jul, Pain in right leg M79.604 ; [place] [address] Pain of left leg M79.605 ; Cigarette nicotine dependence with nicotine-induced disorder F17.219 ; Chronic fatigue R53.82 and Pure hypercholesterolemia E78.0 IMMUNIZATIONS No Known Immunizations SOCIAL HISTORY Never Assessed REASON FOR REFERRAL FUNCTIONAL STATUS PLAN OF CARE VITAL SIGNS MEDICATIONS Unknown Medications PROCEDURES No Known procedures RESULTS No Results REASON FOR VISIT labs Insurance Providers [facility] Health Member Patient Patient Patient Patient Patient Subscriber Subscriber Subscriber Group Insurance Plan Plan Plan Plan ID Relationship Address Phone Name Date of ID Name Date of No Type Insurance Insurance Insurance Coverage to Subscriber Address Phone Name Dates Medicaid [phone] Medicaid self Marii [id number] [facility] [address] [place] [address] Medicare Box Elder Medicare self Marii [id number] PPS QMB No Government 41 PPS QMB No [place] [facility] [employer] e [address] [place] [id number] Medicare National Medicare self Marii [id number] PPS Government 41 PPS [place] [facility] [address] [place] [id number] Case [phone] Case self Marii [id number] Management [place] [facility] [address] [facility] [phone] [place] [id number] DOI Insurance [id number] Insurance [place] 9 [id number] [facility] [place] [address] [employer] [phone] [employer] self Marii [id number] Of [facility] [id number] 63 Of [facility] [facility] [address] Medical MEDICAL (GENERAL) HISTORY Type Description Date Medical [...] with sciatica, sciatica laterality unspecified 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
--- OUTSIDE RECORDS SUMMARY | 2019-07-30 08:24 | XMS REPORT ---
:1965 Author Organization [facility] Address [address] [place] [address] Care Team Providers Name Role Phone Austin Radford Unavailable Unavailable PROBLEMS Type Condition ICD9-CM BPO20-FD Onset Condition SNOMED Code Code Code Dates Status Problem Cubital tunnel syndrome, G56.22 Active 21843839 left Problem Bilateral carpal tunnel G56.03 Active 13834961 syndrome Problem Type 2 diabetes mellitus E11.9 Active 704323461 without complications Problem Diaphragmatic hernia K44.9 Active 76785757 without obstruction or gangrene Problem GERD (gastroesophageal K21.9 Active 028616659 reflux disease) Problem Pulmonary nodule R91.1 Active 859523918 Problem Essential hypertension I10 Active 97811585 Problem Peripheral vascular I73.9 Active 257018067 disease Problem Pure E78.0 Active 579216632 hypercholesterolemia Problem Fatty liver K76.0 Active 458585092 Problem Elevated transaminase R74.0 Active 613049942 level Problem Stage 1 chronic kidney N18.1 Active 994920745 disease Problem Anxiety F41.9 Active 61362972 Problem Primary insomnia F51.01 Active 4246081 Problem Tension headache G44.209 Active 739737426 Problem Status post Z95.828 Active 799940810 aortobifemoral bypass surgery Problem Other obesity due to E66.09 Active 815910968 excess calories Problem Body mass index (BMI) of Z68.37 Active 882755033 37.0-37.9 in adult Problem Bilateral low back pain M54.40 Active 12053930 with sciatica, sciatica laterality unspecified Problem residential current use of Z79.4 Active 870343929 insulin ALLERGIES No Information ENCOUNTERS Encounter Location Date Diagnosis [address] Jun, Type 2 [place] [address] without complications E11.9 and residential current use of insulin Z79.[address] Jun, Type 2 diabetes mellitus [place] without complications E11.9 [address] May, [place] [address] May, [place] [address] Mar, [place] [address] [facility] Mar, [place] [address] Mar, [place] [address] Mar, [place] [address] Mar, Type 2 [place] [address] without complications E11.[address] Mar, Fatty liver K76.0 ; [place] [address] anterior shoulder pain M25.512 and Type 2 diabetes mellitus without complications E11.[address] Feb, Pain in left shoulder M25.512 [place] [address] [facility] Feb, [place] [address] Feb, Type 2 [place] [address] without complication, without long-term current use of insulin E11.[address] Feb, Acute pain [place] [address] M25.512 and Type 2 diabetes mellitus without complication, without long-term current use of insulin E11.[address] Feb, Elevated liver enzymes R74.8 [place] [address] Jan, [place] [address] Jan, [place] [address] [place] Jan, [place] [address] [place] [address] [address] Jan, [place] [address] Jan, [place] [address] [place] [address] [address] Dec, Type 2 [place] [address] without complication, without long-term current use of insulin E11.9 ; Screening for breast cancer Z12.31 and Primary insomnia F51.01 [place] [address] [address] Dec, [place] [address] [place] [address] [address] Dec, [place] [address] [place] [address] Dec, [place] [address] [place] [address] November, [place] [address] [place] [address] [address] November, [place] [address] November, [place] [address] November, [place] [address] [place] [address] [address] November, Type 2 [place] [address] without complication, without long-term current use of insulin E11.9 [place] [address] [address] Oct, Type 2 [place] [address] without complication, without long-term current use of insulin E11.[address] Oct, Type 2 [place] [address] without complication, without long-term current use of insulin E11.9 ; Transaminitis R74.0 ; residential current use of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 Z79.01 and Chest pain at rest R07.[address] Sep, Type 2 diabetes mellitus [place] without complications E11.9 [address] [place] [address] [facility] Aug, [place] [address] Aug, [place] [address] Aug, Type 2 diabetes mellitus [place] without complications E11.9 [address] [facility] [address] [facility] Jul, Type 2 diabetes mellitus [place] without complications E11.9 [address] Jul, Bladder pain R39.89 ; Type 2 [place] [address] diabetes mellitus without complications E11.9 and terminal clerk current use of insulin Z79.[address] Jul, Type 2 [place] [address] without complication, without long-term current use of insulin E11.9 [place] [address] [facility] Jul, Uncontrolled type 2 [place] [address] mellitus without complication, without long-term current use of insulin E11.[address] Jul, [place] [address] [facility] [address] [facility] Jul, [place] [address] Jul, Status post [place] [address] bypass surgery Z95.[address] Jul, [place] [address] Jun, [place] [address] [facility] [address] [facility] Jun, [place] [address] [facility] [address] [facility] Jun, [place] [address] Jun, [place] [address] [place], [place] [address] [facility] [address] [place] [address] Jun, [place] [address] [place] Jun, [place] [address] [place] [address] [address] May, [place] [address] [place] [address] May, residential [place] [address]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 Z79.[address] May, Bronchitis J40 ; [place] [address] maxillary sinusitis J01.00 ; Clotting disorder D68.9 and Type 2 diabetes mellitus without complication, without long-term current use of insulin E11.[address] May, [place] [address] Apr, [place] [address] Apr, [place] [address] Apr, Clotting disorder D68.9 [place] [address] Apr, [place] [address] [place] [address] [address] Apr, [place] [address] Apr, Type 2 [place] [address] without complication, without long-term current use of insulin E11.[address] Apr, [place] [address] Apr, [place] [address] Apr, [place] [address] 15 Apr, 2018 Type 2 diabetes [place] [address] without complication, without long-term current use of insulin E11.[address] Apr, [place] [address] Apr, [place] [address] Apr, [place] [address] Apr, [place] [address] Apr, [place] [address] Apr, Bilateral [place] [address] sciatica, sciatica laterality unspecified M54.40 ; Type 2 diabetes mellitus without complication, without long-term current use of insulin E11.9 ; Essential hypertension I10 ; Vision changes H53.9 ; Rash R21 ; Other obesity due to excess calories E66.09 ; Body mass index (BMI) of 37.0-37.9 in adult Z68.37 and Encounter for immunization Z23 [address] Apr, [place] [address] Mar, [place] [address] Mar, [place] [address] [place] [address] Migel [place] [address] Mar, terminal clerk current use of [facility] [place]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 Z79.01 [address] Mar, [place] [address] Mar, [place] [address] I73.9 ; Left foot pain M79.672 ; Bilateral low back pain with sciatica, sciatica laterality unspecified M54.40 ; Other obesity due to excess calories E66.09 ; Body mass index (BMI) of 37.0-37.9 in adult Z68.37 ; residential current use of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 Z79.01 and Elevated liver enzymes R74.[address] Mar, [place] [address] Mar, [place] [address] Mar, Peripheral vascular disease [place] I73.9 ; Left foot pain M79.672 [address] ; Swelling of left foot M79.89 and Type 2 diabetes mellitus without complication, without long-term current use of insulin E11.[address] Mar, [place] [address] Feb, [place] [address] Feb, [place] [address] Feb, Type 2 [place] [address] without complication, without long-term current use of insulin E11.[address] Feb, [place] [address] Feb, [place] [address] Feb, [place] [address] [facility] Feb, Pain in right knee M25.561 [place] [address] [facility] [address] [facility] Feb, [place] [address] [facility] [address] [facility] Feb, [place] [address] [facility] [address] [facility] Feb, [place] [address] [facility] [address] [facility] Jan, [place] [address] [place] [address] [address] Jan, [place] [address] [place] [address] [address] Jan, Type 2 [place] [address] without complication, without long-term current use of insulin E11.9 ; Acute pain of right knee M25.561 ; Bilateral low back pain with sciatica, sciatica laterality unspecified M54.40 ; Generalized abdominal tenderness R10.817 ; Other obesity due to excess calories E66.09 and Body mass index (BMI) of 37.0-37.9 in adult Z68.37 [place] [address] [address] Jan, [place] [address] [facility] [address] [facility] Jan, [place] [address] [place] [address] [address] Jan, Rib pain on left side R07.81 [place] [address] Jan, [place] [address] [place] [address] Dec, [place] [address] [place] [address] [place], [place] [address] [facility] [address] [facility] Dec, [place] [address] [place] [address] [address] [place], [place] [address] [facility] [address] [facility] Dec, [place] [address] [facility] Dec, [place] [address] [place] [address] [address] Dec, [place] [address] Migel Nguyen [address] November, [facility] [place] [address] [place] [address] [address] November, [place] [address] [place] [address] November, Type 2 [place] [address] without complication, without long-term current use of insulin E11.9 ; Left hip pain M25.552 and Anxiety F41.9 [place] [address] [address] November, [place] [address] Migel Nguyen [address] November, [place] [address] [place] [address] [address] November, [place] [address] November, [place] [address] [place] [address] November, [place] [address] [place] [address] November, [place] [address] [place] [address] November, Type 2 [place] [address] without complication, without long-term current use of insulin E11.[address] November, [place] [address] [place] [address] November, [facility] [place] [address] Migel Nguyen [address] November, [facility] [place] [address] November, [place] [address] Migel Nguyen [address] November, [facility] [place] [address] [place] [address] Oct, [facility] [place] [address] [place] [address] [address] Oct, Vaginal yeast infection B37.3 ; [place] [address] Stomach pain R10.9 ; Other obesity due to excess calories E66.09 and Body mass index (BMI) of 37.0-37.9 in adult Z68.37 [facility] [address] [place] Oct, Health [place] [address] [place] [address] Oct, [place] [address] [place] [address] [place] Oct, Health [place] [address] [place] [address] [place] Oct, [place] [address] [place] [address] Sep, [place] [address] [place] [address] Sep, [place] [address] [address] Sep, Right upper quadrant pain [place] R10.11 [place] [address] [address] [place] Sep, [place] [address] [place] [address] Sep, [place] [address] [address] Sep, [place] [address] [address] Sep, Tenderness at McBurney's point [place] R19.8 and Right upper quadrant pain R10.11 [place] [address] [address] Sep, [place] [address] Sep, [place] [address] [place] [address] Sep, Type 2 [place] [address] without complication, without long-term current use of insulin E11.9 ; Clotting disorder D68.9 ; terminal clerk current use of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 Z79.01 ; Essential hypertension I10 ; Anxiety F41.9 ; Generalized abdominal pain R10.84 ; Paresthesia of skin R20.2 ; Anesthesia of skin R20.0 ; Obesity (BMI 30-39.9) E66.9 and BMI 36.0-36.9,adult Z68.36 [place] [address] [address] [place] Sep, Health [place] [address] [place] [address] [address] Sep, [place] [address] [place] [address] [address] [place] Sep, Health [place] [address] [place] [address] Sep, [place] [address] [place] [address] Aug, [place] [address] [place] [address] Aug, Type 2 [place] [address] without complication, without long-term current use of insulin E11.9 [place] [address] Aug, [place] [address] [place] [address] Aug, Anesthesia of skin R20.0 ; [place] [address] Elevated transaminase level R74.0 ; Lump in throat R22.1 and Type 2 diabetes mellitus without complication, without long-term current use of insulin E11.9 [place] [address] Aug, [place] [address] [place] [address] Aug, [place] [address] [place] [address] Aug, Raynaud''s [place] [address] gangrene I73.00 [facility] Aug, [place] [address] [place] [address] [facility] Aug, Raynaud''s [place] [address] gangrene I73.00 [place] [address] Aug, [place] [address] [place] [address] Jul, [place] [address] [place] [address] Jul, [place] [address] [place] [address] Jul, Raynaud''s [place] [address] gangrene I73.00 and Lymphadenopathy R59.1 [facility] [address] [facility] [place] Jul, [place] [address] [facility] [address] [place] [address] Jul, [place] [address] [place] [address] Jul, Raynaud''s [place] [address] gangrene I73.00 [place] [address] Jul, [place] [address] [place] [address] [place] Jul, Uncontrolled type 2 [place] [address] mellitus without complication, without long-term current use of insulin E11.65 [place] [address] [address] Jul, [place] [address] [facility] [address] [place] [address] Jun, [facility] [place] [address] Migel Nguyen [address] Jun, [place] [address] [place] [address] [address] [place] Jun, [place] [address] 15 Jun, 2017 [place] [address] [place] Jun, [place] [address] Jun, Epigastric pain R10.13 ; Type 2 [place] [address] diabetes mellitus without complication, without long-term current use of insulin E11.9 ; Clotting disorder D68.9 ; Obesity (BMI 30-39.9) E66.9 ; BMI 35.0-35.9,adult Z68.35 and Colon cancer screening Z12.11 [facility] [address] [place] [address] Jun, [place] [address] Jun, [place] [address] Jun, [place] [address] [place], [place] [address] May, Pure hypercholesterolemia E78.0 [place] [address] May, Rib pain on left side R07.81 ; [place] [address] Pneumonia of both lungs due to infectious organism, unspecified part of lung J18.9 ; Clotting disorder D68.9 ; residential current use of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 Z79.01 ; Obesity (BMI 30-39.9) E66.9 and BMI 35.0-35.9,adult Z68.[address] May, Uncontrolled type 2 [place] [address] mellitus without complication, without long-term current use of insulin E11.[address] [place] May, [place] [address] May, Pneumonia of both [place] [address] infectious organism, unspecified part of lung J18.[address] May, Pneumonia of both [place] [address] infectious organism, unspecified part of lung J18.[address] May, Uncontrolled type 2 [place] [address] mellitus without complication, without long-term current use of insulin E11.[address] [place] May, [place] [address] May, [place] [address] May, Fatty liver K76.0 ; [place] [address] LFTs R79.89 ; Clotting disorder D68.9 ; Cigarette nicotine dependence without complication F17.210 ; Obesity (BMI 30-39.9) E66.9 and BMI 35.0-35.9,adult Z68.[address] [place] May, Uncontrolled type 2 [place] [address] mellitus without complication, without long-term current use of insulin E11.[address] May, [place] [address] [facility] [address] [place] [address] Apr, [place] [address] Apr, Left upper quadrant pain R10.12 [place] [address] ; Transaminase or LDH elevation R74.0 ; Wheezing R06.2 and Cigarette nicotine dependence with nicotine-induced disorder F17.[address] Apr, Type 2 diabetes [place] [address] without complication, without long-term current use of insulin E11.[address] Apr, [place] [address] Apr, Uncontrolled type 2 [place] [address] mellitus without complication, without long-term current use of insulin E11.[address] Apr, [place] [address] Apr, Right lower [place] [address] [address] Apr, Right [place] [address] R10.31 ; Urinary frequency R35.0 and Essential hypertension I10 [address] Apr, [place] [address] Apr, [place] [address] Apr, [place] [address] [facility] [address] [facility] Apr, [place] [address] [place] [address] [place], [place] [address] [place] [facility] [address] [facility] Mar, [place] [address] [place] [address] [address] Mar, [place] [address] Mar, [place] [address] [place] [address] Mar, Uncontrolled type 2 [place] [address] mellitus without complication, without long-term current use of insulin E11.65 and Screening for breast cancer Z12.[address] [place] [address] Mar, [place] [address] [place] [address] Mar, [place] [address] [facility] [address] [place] Mar, [place] [address] [place] [address] [place], [place] [address] [facility] [address] [facility] Mar, [place] [address] [place] [address] Mar, Impaired fasting glucose R73.01 [place] [address] and Uncontrolled type 2 diabetes mellitus without complication, without long-term current use of insulin E11.[address] [place] [address] Mar, [place] [address] [place] [address] Mar, [place] [address] [place] [address] Mar, [place] [address] [place] [address] Mar, [place] [address] [place] [address] Feb[place] [address] [place] [address] Feb, [place] [address] [place] [address] Feb, [place] [address] [place] [address] Feb, Bruising T14.8 [place] [address] hypercholesterolemia E78.[address] Feb, [place] [address] Feb, [place] [address] [place] [address] Feb, [place] [address] Feb, Cigarette nicotine dependence [facility] [place] [address] with nicotine-induced disorder F17.[address] Feb, [place] [address] [place] [address] [address] Feb, [place] [address] Feb, Cigarette nicotine dependence Health [place] [address] with nicotine-induced disorder F17.219 [place] [address] [address] [place] Jan, [facility] [place] [address] [place] [address] Jan, [place] [address] [place] [address] Jan, Tension headache G44.209 ; [place] [address] Bilateral low back pain with sciatica, sciatica laterality unspecified M54.40 ; Cigarette nicotine dependence with nicotine-induced disorder F17.219 ; Sprain of ribs, initial encounter S23.41XA ; Pure hypercholesterolemia E78.0 and Essential hypertension I10 [address] Jan, [place] [address] Jan, [place] [address] [place] [address] Jan, [place] [address] [place] [address] Jan, [place] [address] [address] [place] Dec, [place] [address] [place] [address] [address] Dec, [place] [address] [place] [place] [address] Dec[place] [address] [place] [address] Dec, [place] [address] [place] [address] Dec, [place] [address] [place] [address] Dec, Tension headache G44.209 ; [place] [address] Clotting disorder D68.9 ; terminal clerk current use of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 Z79.01 ; Cigarette nicotine dependence with nicotine-induced disorder F17.219 and Obesity (BMI 30-39.9) E66.9 [place] [address] Dec, [place] [address] [place] [address] Dec, [place] [address] [place] [address] Dec, Bilateral [place] [address] sciatica, sciatica laterality unspecified M54.40 and Clotting disorder D68.9 [place] [address] Dec, [place] [address] [place] [address] Dec, Clotting disorder D68.9 ; [place] [address] term current use of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 Z79.01 and Cigarette nicotine dependence with nicotine-induced disorder F17.219 [place] [address] Dec, [place] [address] [address] [address] Dec, [place] [address] [facility] [address] [place] Dec, [place] [address] [place] [address] November, [place] [address] [place] [address] November, [place] [address] [address] [place] [address] November, [place] [address] [address] [address] November[place] [address] [place] [address] November, [place] [address] [place] [address] November, [place] [address] [place] [address] November[place] [address] [address] [address] November, [place] [address] [place] [address] November, [place] [address] [place] [address] November, [place] [address] [place] [address] November, [place] [address] [place] [address] November[place] [address] [place] [address] Oct, [place] [address] [place] [address] Oct, [place] [address] [place] [address] Oct[place] [address] [address] [place] [address] Oct, [place] [address] [address] [place] [address] Oct, [place] [address] [address] [place] [address] Oct, Other chest pain R07.89 ; Pain, [place] [address] arm, left M79.602 ; Posterior left knee pain M25.562 ; Essential hypertension I10 and Hypercholesteremia E78.00 [place] [address] Oct, [place] [address] [address] [place] [address] Oct, Weakness of left arm R29.898 ; [place] [address] History of coagulopathy Z86.2 and Pain, arm, left M79.[address] [address] Oct, [place] [address] [place] [address] Oct, [place] [address] [place] [address] Sep, [place] [address] [place] [address] Sep, [place] [address] [address] [address] Sep, [place] [address] [place] [address] Sep, [place] [address] [place] [address] Sep, [place] [address] [place] [address] Sep, [place] [address] [place] [address] [place], [place] [address] [place] [address] Sep, [place] [address] [place] [address] Aug, [place] [address] [address] [place] [address] Aug, [place] [address] [place] [address] Aug, residential [place] [address]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 Z79.01 ; Cigarette nicotine dependence with nicotine-induced disorder F17.219 and Anxiety F41.[address] Aug, [place] [address] [place] [address] Aug, [place] [address] [address] [place] [address] Aug[place] [address] [place] [address] Aug, [place] [address] [address] [place] [address] Aug, [place] [address] [address] [address] Aug, [place] [address] [address] [address] Aug, [place] [address] [address] [place] [address] Jul, residential [place] [address]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 Z79.[address] [place] [address] Jul, Tobacco abuse Z72.0 [place] [address] [address] [place] [address] Jul, [place] [address] [place] [address] Jul, [place] [address] [address] [place] [address] Jul, Abnormal [place] [address] R91.[address] [place] [address] Jul, Pulmonary nodules R91.8 [place] [address] [address] [place] [address] Jul, [place] [address] [place] [address] Jul, Tension headache G44.209 ; [place] [address] Bilateral low back pain with sciatica, sciatica laterality unspecified M54.40 ; Cigarette nicotine dependence with nicotine-induced disorder F17.219 ; Wheezing R06.2 and residential current use of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 Z79.[address] [address] Jul, [place] [address] [facility] [address] [facility] [place], [place] [address] [facility] [address] Jun, [place] [address] [place] [address] Jun, [place] [address] [address] [address] Jun, Chronic headache R51 [place] [address] [address] [address] Jun, [place] [address] [place] [address] Jun, [place] [address] [place] [address] [place] [address] [place] [address] Jun, [place] [address] [place] [address] Jun, [place] [address] [place] [address] Jun, Tension headache G44.209 [place] [address] [address] [place] [address] May, [place] [address] [place] [address] May, Clotting disorder D68.9 [place] [address] [place] [address] May, Tension headache G44.209 [place] [address] [place] [address] May, [place] [address] [place] [address] May, Encounter for immunization Z23 [place] [address] ; Tension headache G44.209 ; Clotting disorder D68.9 ; Essential hypertension I10 ; Cigarette nicotine dependence with nicotine-induced disorder F17.219 ; Pure hypercholesterolemia E78.0 and Hemorrhage from respiratory passages, unspecified R04.9 [place] [address] May, [place] [address] [place] [address] May, Tension headache G44.209 [place] [address] [place] [address] May, [place] [address] [place] [address] May[place] [address] [place] [address] May, [place] [address] [place] [address] May, [place] [address] [place] [address] [place], [place] [address] [facility] [place] [address] May, [place] [address] [address] [place] [address] May, [place] [address] [address] Apr, Clotting disorder D68.9 [place] [address] [facility] [address] [facility] Apr, [place] [address] [facility] [address] Apr, [place] [address] [address] [address] Apr, [place] [address] [place] [address] Apr, [place] [address] [place] [address] Apr, [place] [address] [address] [address] Apr, [place] [address] [place] [address] Apr, Clotting disorder D68.9 [place] [address] terminal clerk current use of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 Z79.01 [place] [address] Mar, [place] [address] [address] [place] [address] Mar, [place] [address] [address] [place] [address] Mar, Hypomagnesemia E83.42 [place] [address] Abdominal hernia K46.9 [place] [address] Mar, [place] [address] [address] [address] Mar, [place] [address] [address] [address] Mar, [place] [address] [place] [address] Feb, [place] [address] [place] [address] Feb, [place] [address] [place] [address] Feb, residential [place] [address]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 Z79.01 [place] [address] Feb, Contusion of lower leg, [place] [address] unspecified laterality, initial encounter S80.10XA and residential current use of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 Z79.[address] Feb, [place] [address] Feb, [place] [address] [place] [address] Feb, [place] [address] [address] [address] Feb, [place] [address] [place] [address] Jan, [place] [address] Jan, [place] [address] [address] [place] [address] Dec, [place] [address] [address] [place] [address] Dec, [place] [address] Dec, [place] [address] with nicotine-induced disorder F17.219 ; Seasonal allergies J30.2 ; Pain in right knee M25.561 and Pain in left knee M25.[address] Dec, [place] [address] [place] [address] Dec, [place] [address] [facility] [address] [place] [address] Dec, [place] [address] [place] [address] November[place] [address] [facility] [address] [place] [address] November, [place] [address] [place] [address] November, Health [facility] [place] [address] Oct, [place] [address] Oct, [place] [address] [place] [address] Sep[place] [address] Sep, [place] [address] Sep, [place] [address] [place] [address] Aug, residential [place] [address]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 Z79.01 ; Cigarette nicotine dependence with nicotine-induced disorder F17.219 ; Generalized abdominal tenderness R10.817 and Essential hypertension I10 [address] Aug, residential [place] [address]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 Z79.01 ; Bilateral low back pain with sciatica, sciatica laterality unspecified M54.40 and Cigarette nicotine dependence with nicotine-induced disorder F17.219 [place] [address] Aug, [place] [address] [place] [address] Aug, Essential hypertension I10 ; [place] [address] Acute nasopharyngitis J00 and Cigarette nicotine dependence with nicotine-induced disorder F17.219 [place] [address] Aug, [place] [address] [place] [address] Aug, [place] [address] sciatica, sciatica laterality unspecified M54.40 ; Cigarette nicotine dependence with nicotine-induced disorder F17.219 ; Pain in right leg M79.604 ; Pain of left leg M79.605 ; Clotting disorder D68.9 and Anxiety F41.[address] Jul, [place] [address] Jul, [place] [address] Jul, [place] [address] Jul, Pure hypercholesterolemia E78.0 [place] [address] Jul, Pain in right leg M79.604 ; [place] [address] Pain of left leg M79.605 ; Cigarette nicotine dependence with nicotine-induced disorder F17.219 ; Chronic fatigue R53.82 and Pure hypercholesterolemia E78.0 IMMUNIZATIONS No Known Immunizations SOCIAL HISTORY Never Assessed REASON FOR REFERRAL FUNCTIONAL STATUS PLAN OF CARE VITAL SIGNS MEDICATIONS Medication Instructions Dosage Frequency Start Date End Date Duration Status Trulicity 1.5 Subcutaneous 1.5mg Apr, 05 December, days Active MG/0.5ML weekly 2017 2019 PROCEDURES No Known procedures RESULTS No Results REASON FOR VISIT Trulicity Refill Request Insurance Providers [facility] Member Patient Patient Patient Patient Patient Subscriber Subscriber Subscriber Group Insurance Plan Plan Plan Plan ID Relationship Address Phone Name Date of ID Name Date of No Type Insurance Insurance Insurance Coverage to Subscriber Address Phone Name Dates Medicare National Medicare self Marii [id number] PPS QMB No Government 41 PPS QMB No [place] [employer] [address] [place] [id number] Medicare National Medicare self Marii [id number] PPS Government 41 PPS [facility] [address] [place] [id number] Case [phone] Case self Marii [id number] Management [place] 02 Management [facility] [address] [facility] Medicaid [id number] Medicaid self Marii [id number] [facility] [address] [place] [id number] [employer] [phone] [employer] self Marii [id number] Of [facility] [id number] Of [facility] [place] [facility] [address] [place] [phone] [place] [id number] DOI Insurance [id number] Insurance [place] [id number] Fund [facility] [id number] MEDICAL (GENERAL) HISTORY Type Description Date Medical [...] with sciatica, sciatica laterality unspecified Medical History residential current use of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 Medical History Hx of deep venous thrombosis 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
[2019-07-30] MEDS ORDERED: NS 0.9% 1000 ML** 1,000 ML IV ONE (08:31)
[2019-07-30] MEDS ORDERED: Morphine 4 MG/ML VIAL (1 ml) 4 MG/ML VIAL IV ONE (08:31)
[2019-07-30] MEDS ORDERED: Ondansetron INJ* 2 MG/ML VIAL IV ONE (08:31)
[2019-07-30 08:39] LABS: ABS Basophils 0.1 10^3/ul (0-0.2); ABS Eosinophils 0.1 10^3/ul (0-0.6); ABS Lymphocytes 1.7 10^3/ul (1.0-4.8); ABS Monocytes 0.6 10^3/ul (0-0.8); ABS Neutrophils 4.8 10^3/ul (1.5-7.7); Eosinophil % 1.6 %; Hematocrit 40 % (35-47); Hemoglobin 14.1 g/dL (12.0-16.0); Lymphocyte % 23.7 %; Mean Corpuscular HGB Conc 35 g/dL (31-36); Mean Corpuscular Hemoglobin 32 pg (27-31); Mean Corpuscular Volume 92 fL (80-97); Mean Platelet Volume 10.7 fL (7.4-10.4); Platelet Count 119 10^3/uL (150-450); Red Blood Count 4.38 10^6 /uL (3.70-4.87); Red Cell Distribution Width 14 % (10-15); White Blood Count 7.3 10^3/uL (3.5-10.8)
[2019-07-30 08:48] LABS: Activated Partial Thrombo Time 36.1 seconds (26.0-38.0); INR 1.21 (0.82-1.09)
[2019-07-30 08:56] LABS: Albumin/Globulin Ratio 1.3 (1-3); BUN/Creatinine Ratio 15.9 (8-20); EGFR African American 106.5 (>60); Globulin 3.1 g/dL (2-4); Magnesium 1.7 mg/dL (1.9-2.7); Potassium 3.9 mmol/L (3.5-5.0); Total Bilirubin 0.8 mg/dL (0.2-1.0); Total Protein 7.1 g/dL (6.4-8.9)
[2019-07-30] MEDS ORDERED: Iodixanol* (CONTRAST) 320 MG/ML 100 ML SDV IV ONE (09:23)
[2019-07-30] MEDS ORDERED: Famotidine IV* 10 MG/ML 2 ML (20 mg) IV ONE (11:03)
[2019-07-30] MEDS ORDERED: Lidocaine 2% VISCOUS* 15 ML UDC PO ONE (11:03)
[2019-07-30] MEDS ORDERED: Al Hydrox/Mg Hydrox/Simet LIQ* 30 ML UDC PO ONE (11:03)
[2019-07-30 13:12] VITALS: BP 155/73
== END 2019-07-30 13:10 | disposition home or self-care (01) ==
LOC: ED 08:11
DX: R07.89 Other chest pain (principal); R10.13 Epigastric pain; J43.9 Emphysema, unspecified; K42.9 Umbilical hernia without obstruction or gangrene; N28.1 Cyst of kidney, acquired; E11.9 Type 2 diabetes mellitus without complications; Z79.4 Long term (current) use of insulin; Z79.84 Long term (current) use of oral hypoglycemic drugs; I10 Essential (primary) hypertension; K21.9 Gastro-esophageal reflux disease without esophagitis; K44.9 Diaphragmatic hernia without obstruction or gangrene; Z86.718 Personal history of other venous thrombosis and embolism; Z79.01 Long term (current) use of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s; Z90.49 Acquired absence of other specified parts of digestive tract; Z90.710 Acquired absence of both cervix and uterus; Z98.62 Peripheral vascular angioplasty status; Z88.0 Allergy status to penicillin; F17.210 Nicotine dependence, cigarettes, uncomplicated
CPT/HCPCS: 36415; 71045; 71275; 74174; 80053; 83605; 83735; 84484; 85025; 85610; 85730; 93005; 96361; 96374; 96375; 99283; A9270-GY; J2270; J2405; Q9967